=== PATIENT | female | born 1950 | race Caucasian/White ===

== ENCOUNTER 2018-07-25 11:31 | Inpatient (IN) | payer MEDICARE, OTHER ==
[~2018-07-25] VITALS: Ht 154.9 cm; Wt 59.9 kg
[2018-07-25] MEDS ORDERED: Sodium Chloride 550 ML IV SCH (11:45)
[2018-07-25] MEDS ORDERED: OMEPRAZOLE20 M3 ORAL (11:59)
[2018-07-25] MEDS ORDERED: CYMBALTA20 MG ORAL (11:59)
[2018-07-25] MEDS ORDERED: LISINOPRIL5 MG ORAL (11:59)
[2018-07-25] MEDS ORDERED: TRAMADOL HCL100 M2 ORAL (11:59)
[2018-07-25] MEDS ORDERED: METOPROLOL TART25 MG ORAL (11:59)
[2018-07-25] MEDS ORDERED: FAMOTIDINE20 MG ORAL (11:59)
[2018-07-25] MEDS ORDERED: GLUCOPHAGE1000 MG ORAL (11:59)
[2018-07-25] MEDS ORDERED: RIZATRIPTAN10 MG PO (11:59)
[2018-07-25] MEDS ORDERED: FENOFIBRATE145 M1 ORAL (11:59)
--- NOTE | 2018-07-25 12:00 | NUR ---
ED Nurse Note:pt. came with dr. Mcgovern referral for illeostomy revision surgery, pt. is A/Ox4 ambulatory, VSS, blood sent to labs
[2018-07-25 12:21] VITALS: BP 144/79
[2018-07-25 12:26] LABS: HEMATOCRIT 34.8 % (37.0-47.0); LYMPHOCYTES % (AUTO) 30.6 % (20.0-45.0); MEAN CORPUSCULAR VOLUME 82 FL (80-99); MONOCYTES % (AUTO) 10.2 % (1.0-10.0); NEUTROPHILS % (AUTO) 48.2 % (45.0-75.0); PLATELET COUNT 412 K/UL (150-450); RED BLOOD COUNT 4.26 M/UL (4.20-5.40); RED CELL DISTRIBUTION WIDTH 14.5 % (11.6-14.8); WHITE BLOOD COUNT 5.4 K/UL (4.8-10.8)
--- NOTE | 2018-07-25 12:30 | Emergency Room Report ---
History of Present Illness General Chief Complaint: Malfunctioning Gastric Tube Source: Patient, Significant Other Present Illness HPI Patient started having difficulty catheterizing her continent ileostomy on . There's been a slight amount of blood. She's used a smaller catheter. She was seen in a hospital where she lives in [place]. She's felt nauseated. She was referred here to have evaluation. She denies fevers or chills or pain. She's been taking tramadol for other pain that she has. Approximately 15 years ago she had a similar problem and had to have revision of the valve. Patient reports that the pain that she has in her body is from sciatica, nicked nerve that occurred during a hysterectomy and also from a recent right arm injury. No chest pain, cough, sore throat, shortness of breath, vomiting or dysuria. Allergies: Coded Allergies: KETOROLAC (Verified Allergy, Unknown, 07/25/18) MORPHINE (Verified Allergy, Unknown, 07/25/18) PENICILLINS (Verified Allergy, Unknown, 07/27/18) Patient History Past Medical History: see triage record Past Surgical History: other - ileostomy pouch, L hip replacement Social History: Denies: smoking, alcohol use, drug use Social History Narrative Reviewed Nursing Documentation: PMH: Agreed; PSxH: Agreed Nursing Documentation-PMH Hx Hypertension: Yes - MIGRAINE Hx Diabetes: Yes Hx Gastrointestinal Problems: Yes - GERD Review of Systems All Other Systems: negative except mentioned in HPI Physical Exam Vital Signs Date Time Temp Pulse Resp B/P (MAP) Pulse Ox O2 Delivery O2 Flow Rate FiO2 07/25/18 11:47 97.5 60 9 100 Room Air 07/25/18 12:21 144/79 Sp02 EP Interpretation: reviewed, normal General Appearance: well appearing, no apparent distress, GCS 15 Head: normocephalic Eyes: bilateral eye normal inspection, bilateral eye PERRL ENT: moist mucus membranes Neck: supple Respiratory: lungs clear, normal breath sounds Cardiovascular #1: regular rate, rhythm Cardiovascular #2: 2+ radial (R) Gastrointestinal: normal inspection, normal bowel sounds, non tender, no mass, non-distended, other - Incontinent ileostomy Genitourinary: no CVA tenderness Musculoskeletal: back normal, gait/station normal, normal range of motion Neurologic: alert, oriented x3, grossly normal Psychiatric: mood/affect normal Skin: normal inspection, warm/dry Medical Decision Making Diagnostic Impression: Primary Impression: Malfunction of efferent segment of continent urinary pouch Additional Impression: Renal insufficiency ER Course Patient presents with having difficulty cannulating her continent ileostomy. I differential includes stricture, malfunction of valve, obstruction amongst others. Evaluation will be with EKG, chest x-ray, abdominal film and labs. The patient will receive IV hydration. She declines pain medication and she took tramadol and hour ago. EKG without injury. CXR no infiltrates. Abd without obstruction. Labs with renal insufficiency. Slight anemia. Requested Ativan. Given IV. Admit Dr. Koby liu. Laboratory Tests Test 07/25/18 12:19 07/25/18 12:35 07/25/18 16:00 White Blood Count 5.4 K/UL (4.8-10.8) Red Blood Count 4.26 M/UL (4.20-5.40) Hemoglobin 11.0 G/DL (12.0-16.0) L Hematocrit 34.8 % (37.0-47.0) L Mean Corpuscular Volume 82 FL (80-99) Mean Corpuscular Hemoglobin 25.8 PG (27.0-31.0) L Mean Corpuscular Hemoglobin Concent 31.5 G/DL (32.0-36.0) L Red Cell Distribution Width 14.5 % (11.6-14.8) Platelet Count 412 K/UL (150-450) Mean Platelet Volume 6.4 FL (6.5-10.1) L Neutrophils (%) (Auto) 48.2 % (45.0-75.0) Lymphocytes (%) (Auto) 30.6 % (20.0-45.0) Monocytes (%) (Auto) 10.2 % (1.0-10.0) H Eosinophils (%) (Auto) 9.0 % (0.0-3.0) H Basophils (%) (Auto) 2.0 % (0.0-2.0) Sodium Level 133 MMOL/L (136-145) L Potassium Level 4.4 MMOL/L (3.5-5.1) Chloride Level 97 MMOL/L (98-107) L Carbon Dioxide Level 26 MMOL/L (21-32) Anion Gap 10 mmol/L (5-15) Blood Urea Nitrogen 19 mg/dL (7-18) H Creatinine 1.4 MG/DL (0.55-1.30) H Estimate Glomerular Filtration Rate 37.4 mL/min (>60) Glucose Level 100 MG/DL (74-106) Calcium Level 9.9 MG/DL (8.5-10.1) Total Bilirubin 0.3 MG/DL (0.2-1.0) Aspartate Amino Transferase (AST) 18 U/L (15-37) Alanine Aminotransferase (ALT) 15 U/L (12-78) Alkaline Phosphatase 62 U/L (46-116) Total Protein 7.8 G/DL (6.4-8.2) Albumin 3.8 G/DL (3.4-5.0) Globulin 4.0 g/dL Albumin/Globulin Ratio 0.9 (1.0-2.7) L Lipase 138 U/L (73-393) Prothrombin Time 10.7 SEC (9.30-11.50) Prothrombin Time INR 1.0 (0.9-1.1) PTT 25 SEC (23-33) Urine Color Pale yellow Urine Appearance Slightly cloudy Urine pH 6 (4.5-8.0) Urine Specific [place] 1.015 (1.005-1.035) Urine Protein Negative (NEGATIVE) Urine Glucose (UA) Negative (NEGATIVE) Urine Ketones Negative (NEGATIVE) Urine Blood Negative (NEGATIVE) Urine Nitrite Negative (NEGATIVE) Urine Bilirubin Negative (NEGATIVE) Urine Urobilinogen Normal MG/DL (0.0-1.0) Urine Leukocyte Esterase 3+ (NEGATIVE) H Urine RBC 0-2 /HPF (0 - 2) Urine WBC 20-30 /HPF (0 - 2) H Urine Squamous Epithelial Cells Many /LPF (NONE/OCC) H Urine Bacteria Moderate /HPF (NONE) H EKG Diagnostic Results Rate: bradycardiac Rhythm: NSR ST Segments: no acute changes Rhythm Strip Diag. Results EP Interpretation: yes Rhythm: no PVC's, no ectopy, other - Bradycardia rate 57 Chest X-Ray Diagnostic Results Chest X-Ray Diagnostic Results : Chest X-Ray Ordered: Yes # of Views/Limited/Complete: 1 View Indication: Other EP Interpretation: Yes Interpretation: no consolidation, no effusion, no pneumothorax Impression: No acute disease Electronically Signed by: Electronically signed by Damir Landa MD Other X-Ray Diagnostic Results Other X-Ray Diagnostic Results : X-Ray ordered: Abdomen # of Views/Limited Vs Complete: 2 View Indication: Other EP Interpretation: Yes Interpretation: nonspecific bowel gas, no sbo, other - Surgical clips, left hip replacement Impression: Other Electronically Signed by: Electronically signed by Damir Landa MD Last Vital Signs Date Time Temp Pulse Resp B/P (MAP) Pulse Ox O2 Delivery O2 Flow Rate FiO2 07/25/18 16:00 98.5 62 19 111/61 (78) 98 07/25/18 13:47 Room Air Status: improved Disposition: ADMITTED INPATIENT Condition: Serious Referrals: Nicanor Whalen MD (PCP) Damir Landa MD July 25, 2018 12:30
[2018-07-25 12:36] LABS: ANION GAP 10 mmol/L (5-15); BLOOD UREA NITROGEN 19 mg/dL (7-18); CALCIUM 9.9 MG/DL (8.5-10.1); CARBON DIOXIDE 26 MMOL/L (21-32); CHLORIDE 97 MMOL/L (98-107); CREATININE 1.4 MG/DL (0.55-1.30); POTASSIUM 4.4 MMOL/L (3.5-5.1); SODIUM 133 MMOL/L (136-145)
[2018-07-25 12:40] LABS: ALANINE AMINOTRANSFERASE 15 U/L (12-78); ALBUMIN 3.8 G/DL (3.4-5.0); ALBUMIN/GLOBULIN RATIO 0.9 (1.0-2.7); ALKALINE PHOSPHATASE 62 U/L (46-116); ASPARTATE AMINO TRANSFERASE 18 U/L (15-37); BILIRUBIN,TOTAL 0.3 MG/DL (0.2-1.0)
[2018-07-25] MEDS ORDERED: LORazepam Inj 2mg/ml 1ml IV ONE (13:00)
[2018-07-25 13:24] VITALS: BP 145/78
[2018-07-25 13:30] VITALS: BP 126/67
--- NOTE | 2018-07-25 13:30 | NUR ---
NURSE NOTES: ADMITTED A 66 YR OLD FEMALE WITH DX OF PATEL POUCH MALFUNCTION. AWAKE /ALERT. ADMISSION CARE DONE. SEE ADMISSION ASSESSMENT.
--- NOTE | 2018-07-25 13:30 | NUR ---
ED Nurse Note:called report to 3 east-given to Floor, pt. taken up
[2018-07-25] MEDS ORDERED: Dextrose 50% 25ml Syringe IV PRN (14:45)
--- NOTE | 2018-07-25 14:52 | General Progress Note ---
Progress Note Progress Note Admitted from Emergency Department presenting with severe difficulty intubating her Kock Pouch continent ileostomy to evacuate stool, with inability to eat and nausea. History of Ulcerative Colitis S/P proctocolectomy with Kock pouch in 1974, with revision and relocation of the stoma to [facility] in 1994. She does not have any incontinence of stool or gas through her stoma. 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 Also history of Sarcoidosis in remission. Labs reveal elevated BUN and Creatinine (19/1.4 Imp. Dehydration Functional small bowel partial obstruction due to inability to evacuate Kock pouch with difficulty inserting the drainage catheter diabetes HTN Perineal/pelvic chronic pain syndroma Plan: IV fluids and f/u labs in AM after hydrated diabetic clear liquid diet if tolerated, otherwise npo x po meds Insertion of 26 Parker into Kock pouch performed - keep to continuous gravity drainage with q3h flush 20cc NS Prepare for Kock Pouch endoscopy and possible surgical revision/ laparotomy vs. stoma revision based on endoscopy findings Nicanor Whalen MD July 25, 2018 14:52
[2018-07-25] MEDS ORDERED: D5 1/2NS w/KCl 20mEq 1,000 ML IV SCH (15:00)
[2018-07-25] MEDS: 1/2NS w/KCl 20mEq 1000ml 1,000 ML IV SCH (15:04)
[2018-07-25 16:00] VITALS: BP 111/61
--- NOTE | 2018-07-25 16:10 | NUR ---
NURSE NOTES: ASSISTED OOB, AMBULATED OUT IN THE [place], TOLERATED.
[2018-07-25] MEDS: Insulin NovoLOG Flexpen S/S (Mod) SUBQ SCH ×2 (16:30→21:00)
[2018-07-25 16:41] LABS: APPEARANCE,URINE SLIGHTLY CLOUDY; BILIRUBIN, URINE NEGATIVE (NEGATIVE); COLOR,URINE PALE YELLOW; GLUCOSE, URINE (UA) NEGATIVE (NEGATIVE); KETONES,URINE NEGATIVE (NEGATIVE); LEUKOCYTE ESTERASE ,URINE 3+ (NEGATIVE); NITRITE,URINE NEGATIVE (NEGATIVE); PH,URINE 6 (4.5-8.0); PROTEIN,URINE NEGATIVE (NEGATIVE); UROBILINOGEN,URINE NORMAL MG/DL (0.0-1.0)
--- NOTE | 2018-07-25 16:49 | NUR ---
CASE MANAGEMENT: REVIEW 68Y/F PRESENTED TO ED FROM HOME CC: MALFUNCTIONING PATEL POUCH MALFUNCTION SI: PATEL POUCH MALFUNCTION SURGICAL REVISION/LAPAROTOMY VS. STOMA REVISION SCHEDULED FOR 07/26 T 97.5 HR 59 RR 13 BP 144/79 SAT 100% ROOM AIR H/H 11.0/34.8 NA 133 BUN 19 CR 1.4 IS: ZOFRAN IV X1 NS IVF BOLUS X1 ATIVAN IV X1 PATIENT ADMITTED TO MED/SURG UNIT 07/25/2018 DCP: PATIENT IS FROM HOME
[2018-07-25] MEDS: traMADol 50mg tab ORAL SCH (17:40)
--- NOTE | 2018-07-25 19:00 | NUR ---
NURSE NOTES: QUIET IN BED. IN NO DISTRESS.
--- NOTE | 2018-07-25 19:16 | NUR ---
HAND-OFF: Report given to Alberto BARR RN.
--- NOTE | 2018-07-25 19:24 | NUR ---
NURSE NOTES: Report taken from LINO Jang. patient is awake and in bed, family at bedside. A&Ox4. No signs of distress on room air. No complaints of pain. She states that she is having a little bit of anxiety from being in the hospital, will follow up with medication per MD order. IV site c/d/i and patent running 1/2NS+20KCl at 100mls/hr. Pouch catheter c/d/i and draining light brown fluid, flush Q3h with NS. Skin is intact. Bed in lowest position, call light within reach.
[2018-07-25] MEDS: ALPRAZolam 0.5mg tab ORAL PRN (19:37)
[2018-07-25 20:00] VITALS: BP 133/73
[2018-07-25] MEDS: Metoprolol 25mg tab ORAL SCH (21:04)
[2018-07-25] MEDS: BELSOMRA 10 MG ORAL PRN (22:08)
[2018-07-26] VITALS (8 sets, daily range): BP systolic 86–147; BP diastolic 61–88
[2018-07-26] MEDS: 1/2NS w/KCl 20mEq 1000ml 1,000 ML IV SCH ×3 (01:00→21:00)
[2018-07-26] MEDS: ALPRAZolam 0.5mg tab ORAL PRN ×2 (02:36→15:20)
--- NOTE | 2018-07-26 02:38 | NUR ---
NURSE NOTES: Patients IV became infiltrated, removed. Attempted to insert new IV with no success.
--- NOTE | 2018-07-26 03:25 | NUR ---
NURSE NOTES: MD notified of no IV access. Will assess patient when in the hospital in the morning.
[2018-07-26] MEDS: Insulin NovoLOG Flexpen S/S (Mod) SUBQ SCH ×4 (06:27→21:00)
--- NOTE | 2018-07-26 06:50 | NUR ---
NURSE NOTES: Patient totals: UO: 1725cc Ileo: 150cc-80cc(flush)= 70cc total
--- NOTE | 2018-07-26 07:06 | NUR ---
HAND-OFF: Report given to LINO Jang. Patient is asleep in bed, VS stable.
[2018-07-26 07:29] LABS: BASOPHILS % (AUTO) 1.6 % (0.0-2.0); EOSINOPHILS % (AUTO) 9.6 % (0.0-3.0); HEMATOCRIT 30.7 % (37.0-47.0); HEMOGLOBIN 9.8 G/DL (12.0-16.0); MEAN CORPUSCULAR VOLUME 82 FL (80-99); MONOCYTES % (AUTO) 9.9 % (1.0-10.0); NEUTROPHILS % (AUTO) 45.9 % (45.0-75.0); PLATELET COUNT 335 K/UL (150-450); RED BLOOD COUNT 3.76 M/UL (4.20-5.40); RED CELL DISTRIBUTION WIDTH 14.1 % (11.6-14.8); WHITE BLOOD COUNT 4.7 K/UL (4.8-10.8)
--- NOTE | 2018-07-26 07:30 | NUR ---
NURSE NOTES: AWAKE/ALERT. C/O PAIN LEFT LEG SCALE 8/10. GIVEN TRAMADOL 50MG PO ORDERED. NO IV ACCESS AT THIS TIME. DR GAVIRIA AWARE. ON CLEAR LIQUIDS ,TOLERATED. IN NO DISTRESS.
[2018-07-26] MEDS: traMADol 50mg tab ORAL SCH ×4 (07:54→18:34)
[2018-07-26 07:57] LABS: ALANINE AMINOTRANSFERASE 13 U/L (12-78); ALBUMIN 3.2 G/DL (3.4-5.0); ALBUMIN/GLOBULIN RATIO 0.9 (1.0-2.7); ALKALINE PHOSPHATASE 50 U/L (46-116); ANION GAP 9 mmol/L (5-15); ASPARTATE AMINO TRANSFERASE 20 U/L (15-37); BILIRUBIN,TOTAL 0.3 MG/DL (0.2-1.0); BLOOD UREA NITROGEN 14 mg/dL (7-18); CARBON DIOXIDE 26 MMOL/L (21-32); CHLORIDE 100 MMOL/L (98-107); CREATININE 1.2 MG/DL (0.55-1.30); FERRITIN 22 NG/ML (8-388); POTASSIUM 3.9 MMOL/L (3.5-5.1); SODIUM 134 MMOL/L (136-145)
[2018-07-26] MEDS: Metoprolol 25mg tab ORAL SCH ×2 (08:40→21:12)
[2018-07-26] MEDS: Lisinopril 2.5mg tab ORAL SCH (08:40)
--- NOTE | 2018-07-26 08:40 | NUR ---
NURSE NOTES: BP 86/72,P 61. BP RECHECKED 135/72 P 60. IN NO APPARENT DISTRESS.
[2018-07-26] MEDS ORDERED: NS Irrig 1000ml ONE (08:47)
--- NOTE | 2018-07-26 10:00 | NUR ---
NURSE NOTES: OOB ,AMBULATED OUT IN THE [place] TOLERATED.
--- NOTE | 2018-07-26 10:19 | NUR ---
NURSE NOTES: ILEOSTOMY CATHETER CAME OUT WHILE AMBULATING. REPLACED WITH GUAMANIAN 26 CATHETER DRAINING BROWNISH OUTPUT. CATHETER SECURED WITH SILK TAPE, DRESSING CHANGED.
--- NOTE | 2018-07-26 11:44 | NUR ---
NURSE NOTES: ACCUCHECK 56. APPLE JUICE XE GIVEN.PT IN NO DUSTRESS. WILL RECHECK FSBS AFTER.
[2018-07-26 12:11] LABS: % IRON SATURATION 11 % (15-50); IRON 64 ug/dL (50-175); TOTAL IRON BINDING CAPACITY 563 ug/dL (250-450)
--- NOTE | 2018-07-26 12:14 | Diagnostic Imaging Report ---
Indication: Abdominal pain Comparison: None Single view of the abdomen obtained Findings: Bowel gas pattern is nonspecific. No mass, ectopic calcifications, or abnormal gas collections are identified. The right femoral head is sclerotic. There is a left total hip replacement noted. There is a calcification in the midpelvis which may be a bladder stone and measures 2.2 cm. Surgical sutures in the left hemipelvis noted. Impression: 2.2 cm stone within the pelvis. Query bladder calculus. 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 Post left hip replacement
--- NOTE | 2018-07-26 12:15 | Diagnostic Imaging Report ---
Indication: Dyspnea Comparison: None A single view chest radiograph was obtained. Findings: Cardiomediastinal appearance is within normal limits for age. The lungs are clear. Pulmonary vascularity is appropriate. The diaphragmatic contour is smooth and costophrenic angles are sharp. No pleural effusions are identified. The bones are unremarkable. Impression: No acute findings
--- NOTE | 2018-07-26 12:26 | NUR ---
NURSE NOTES: ACCUCHECK RECHECK 103. LUNCH TRAY GIVEN. WILL CONTINUE TO MONITR PT.
--- NOTE | 2018-07-26 13:52 | NUR ---
NURSE NOTES: AMBULATED OUT IN THE [place]. NO DISTRESS.
--- NOTE | 2018-07-26 15:21 | General Progress Note ---
Progress Note Progress Note AVSS Tolerating clear liquids. Indwelling Kock pouch catheter has come out but RN able to insert new 26Fr Parker. Abdomen soft Urine 1425 overnight Kock pouch ileo 110 WBC 4700 Hgb 9.8 after hydration (was 11 in ER) BUN and Cr now normal after hydration 14/1.2 albumin low 3.2 Iron 64 (50-175) Ferritin 22 (8-388) folic acid 10.7 (8-388) B12 level ok Imp. Dehydration, resolved Anemia due to iron deficiency Protein malnutrition Malfunctioning Kock Pouch with inability to intubate Plan: Needs dual lumen PIC for venous access and for TPN post-op, Venofer IV - to be inserted in AM Kock pouch endoscopy in AM Prepare for laparotomy Kock pouch revision surgery Nicanor Whaeln MD July 26, 2018 15:21
[2018-07-26] MEDS ORDERED: Lidocaine 1% Plain 30 ml INJ PRN (15:30)
[2018-07-26] MEDS ORDERED: Heparin1,000 units/500ml Premix(Conc:2 units/ml) IV PRN (15:30)
--- NOTE | 2018-07-26 18:53 | NUR ---
NURSE NOTES: QUIET IN BED. NO APPRENT DISTRESS.
--- NOTE | 2018-07-26 19:03 | NUR ---
HAND-OFF: Report given to Nikki ROGERS RN.
--- NOTE | 2018-07-26 19:16 | Pre-op HX & Phy Repo 2 SIG ---
DATE OF ADMISSION: 07/25/2018 HISTORY OF PRESENT ILLNESS: The patient is a 68-year-old female in overall stable health, who presents to the emergency room with inability to catheterize her Kock pouch continent ileostomy to evacuate stool and gas. The patient has a past history of ulcerative colitis that developed in 1969. In 1974, she underwent proctocolectomy with creation of a Kock pouch continent ileostomy. She required a revision with relocation of the stoma to the left lower quadrant in 1994 because of difficulty with intubation. Her usual routine is to catheterize her pouch 3 to 4 times per day with a 30-Algerian Medena catheter. She states that the difficulty is several inches into the stoma when the catheter is nearly all the way into her pouch. She presented to the emergency room and a small caliber catheter could be inserted and she was admitted to the floor. The patient has complaints of some nausea, but has not had vomiting. She feels slightly dehydrated during her attempts to catheterize her pouch. She had some bleeding. PAST MEDICAL HISTORY: MEDICATIONS: Lisinopril and metoprolol for hypertension, tramadol for one year history of spine and left leg pain, duloxetine, Dexilant for reflux, TriCor, metformin daily, insulin as needed based on her blood sugars, and Maxalt p.r.n. migraine headache. ALLERGIES TO MEDICATIONS: Penicillin causes rash. Morphine causes side effects. Toradol, she cannot take because she states she has chronic renal insufficiency, although she urinates normally. OPERATIONS: In addition to the above, the patient underwent total abdominal hysterectomy and bilateral salpingo-oophorectomy in May 2015. The operative report indicated severe adhesions and a question of left side retroperitoneal fibrosis. Ever since the hysterectomy, the patient has developed perineal and pelvic and vaginal and phantom rectum pain, which has persisted and she states it is constant. She has received epidural blocks and Botox injections. In April 2018, the patient underwent open reduction and internal fixation of a left elbow fracture following a fall. REVIEW OF SYSTEMS: Sarcoidosis of lungs in remission, diabetes, hypertension, chronic perineal/pelvic pain syndrome. PHYSICAL EXAMINATION: GENERAL: The patient is well developed and well nourished, 5 feet 1 inches, approximately 130 pounds. She has mild nausea. VITAL SIGNS: Within normal limits. HEENT: Within normal limits. LUNGS: Clear. HEART: Regular rhythm. BREASTS: Without masses. ABDOMEN: Soft and not distended. There are multiple scars including a long midline scar and a left paramedian scar, and a transverse scar in the right lower quadrant from prior Kock pouch stoma location. There is no evidence of abdominal wall hernia. The stoma of the Kock pouch is small and low in the left lower quadrant. PELVIC: Status post hysterectomy. RECTAL: Status post proctectomy. EXTREMITIES: Without edema. Pulses 2+ femoral to pedal bilaterally. NEUROLOGIC: Physiologic. LABORATORY AND DIAGNOSTIC DATA: Additional information, the patient presents with mild dehydration with BUN elevated 19 and creatinine elevated 1.4. Chest x-ray is negative. Abdominal x-ray reveals mildly dilated small bowel loops, nonspecific bowel gas pattern. White count 5400 and hemoglobin 11. A 26-Algerian Parker catheter was able to be inserted through Kock pouch stoma into the pouch and connected to continuous gravity drainage to decompress her intestine. IMPRESSION: 1. Malfunctioning Kock pouch continent ileostomy with inability to catheterize to evacuate stool. 2. History of ulcerative colitis. 3. STATUS POST MULTIPLE ABDOMINAL OPERATIONS: 3.1. Proctocolectomy and Kock pouch in 1974. 3.2. Revision of Kock pouch with relocation of stoma to the left lower quadrant in 1994. 3.3. Total abdominal hysterectomy and bilateral salpingo-oophorectomy in May,. 4. Hypertension. 5. Diabetes. 6. Chronic pain syndrome of perineum, pelvis, and vaginal, phantom rectum. 7. Sarcoidosis of lungs in remission. PLAN: The patient will be admitted with continuous drainage of her Kock pouch and intravenous hydration. Her fluid electrolyte balance will be monitored carefully. Once she has been completely stabilize, she will need to undergo Kock pouch endoscopy followed by preparation for surgical revision as indicated. Nicanor Whalen M.D. DR: ZAIN JOB#: [id number] CC: RAYMOND
--- NOTE | 2018-07-26 19:30 | NUR ---
NURSE NOTES: Received report from LINO Jang and rounds done. Received pt laying in bed, AOX4, denies any pain, no distress noted. Pt has no IV access, MD aware. Ileo to gravity with good output. Safety measures maintained. Will continue to monitor.
[2018-07-26] MEDS: Dyna-Hex 2% Top Sol 2oz TOPIC SCH (20:00)
--- NOTE | 2018-07-26 21:00 | NUR ---
NURSE NOTES: ACCUCHECK 50. APPLE JUICE GIVEN.PT IN NO DISTRESS. WILL RECHECK BLOOD SUGAR AFTER.
--- NOTE | 2018-07-26 21:45 | NUR ---
NURSE NOTES: ACCUCHECK RECHECK 103. PT REFUSED SNACKS. NO DISTRESS NOTED. WILL CONTINUE TO MONITOR.
[2018-07-26] MEDS: BELSOMRA 10 MG ORAL PRN (21:52)
[2018-07-27 00:22] VITALS: BP 130/65
[2018-07-27] MEDS: ALPRAZolam 0.5mg tab ORAL PRN ×2 (04:34→09:47)
[2018-07-27 06:00] VITALS: BP 122/72
[2018-07-27] MEDS: Insulin NovoLOG Flexpen S/S (Mod) SUBQ SCH ×4 (06:24→20:48)
[2018-07-27] MEDS: 1/2NS w/KCl 20mEq 1000ml 1,000 ML IV SCH (07:00)
--- NOTE | 2018-07-27 07:14 | NUR ---
HAND-OFF: Report given to LINO Klein. Pt in stable condition.
--- NOTE | 2018-07-27 07:15 | NUR ---
NURSE NOTES: Received report from Christian Mora RN. Rounding done with outgoing nurse. Patient a/o x4 lying on the bed. No respiratory discomfort noted and denies pain at this time. is at bedside. Ileostomy on left site is patent and greenish color noted. Bed in lowest position, call light within reach. Will continue to monitor.
[2018-07-27 08:00] VITALS: BP 135/76
[2018-07-27] MEDS ORDERED: Lidocaine 1% Plain 30 ml INJ SCH (08:30)
[2018-07-27] MEDS ORDERED: Heparin1,000 units/500ml Premix(Conc:2 units/ml) IV SCH (08:30)
[2018-07-27] MEDS: Metoprolol 25mg tab ORAL SCH ×2 (08:37→20:50)
[2018-07-27] MEDS: traMADol 50mg tab ORAL SCH ×3 (08:38→17:21)
[2018-07-27] MEDS: Lisinopril 2.5mg tab ORAL SCH (08:38)
--- NOTE | 2018-07-27 08:50 | General Progress Note ---
Progress Note Progress Note AVSS Tolerated 1300cc po clear liquids. Had some nausea relieved with Zofran ODT Abdomen soft, non-distended, non-tender Urine 2400 Kock pouch ileo 890 Labs pending U/A ? UTI but C&S neg so far Imp. Malfunctioning Kock Pouch Continent Ileostomy Dehydration, resolved Malnutrition Iron deficiency anemia Plan: PICC line placement today for venous access Kock Pouch endoscopy today - likely surgery tomorrow Nicanor Whalen MD July 27, 2018 08:50
[2018-07-27 08:59] LABS: BASOPHILS % (AUTO) 0.8 % (0.0-2.0); LYMPHOCYTES % (AUTO) 23.8 % (20.0-45.0); MEAN CORPUSCULAR VOLUME 81 FL (80-99); MONOCYTES % (AUTO) 11.5 % (1.0-10.0); PLATELET COUNT 308 K/UL (150-450); RED BLOOD COUNT 3.84 M/UL (4.20-5.40); RED CELL DISTRIBUTION WIDTH 14.1 % (11.6-14.8); WHITE BLOOD COUNT 4.9 K/UL (4.8-10.8)
--- NOTE | 2018-07-27 09:04 | Pre-Procedure Note/Attestation ---
Pre-Procedure Note/Attestation Complete Prior to Procedure Planned Procedure: not applicable Procedure Narrative: Kock Pouch endoscopy Indications for Procedure Pre-Operative Diagnosis: malfunctioning Kock Pouch continent ileostomy Attestation I attest that I discussed the nature of the procedure; its benefits; risks and complications; and alternatives (and the risks and benefits of such alternatives ), prior to the procedure, with the patient (or the patient's legal patient care representative). I attest that, if there was a reasonable possibility of needing a blood transfusion, the patient (or the patient's legal patient care representative) was given the [facility] standardized written summary, pursuant to the Andrade Bryce Blood Safety Act ([place] Health and Safety Code # 1645, as amended). I attest that I re-evaluated the patient just prior to the surgery and that there has been no change in the patient's H&P, except as documented below: none Nicanor Whalen MD July 27, 2018 09:04
[2018-07-27 09:14] LABS: ANION GAP 8 mmol/L (5-15); BLOOD UREA NITROGEN 11 mg/dL (7-18); CALCIUM 9.4 MG/DL (8.5-10.1); CARBON DIOXIDE 26 MMOL/L (21-32); CHLORIDE 96 MMOL/L (98-107); CREATININE 1.1 MG/DL (0.55-1.30); POTASSIUM 4.2 MMOL/L (3.5-5.1); SODIUM 130 MMOL/L (136-145)
--- NOTE | 2018-07-27 09:50 | NUR ---
NURSE NOTES: Patient off the unit for insertion PICC line. Pt is stable.
--- NOTE | 2018-07-27 09:50 | NUR ---
NURSE NOTES: Patient off the unit for kock pouch endoscopy. Patient is stable. Addendum: 07/27/18 at 1134 by Luciana Romo RN DISCARD PLEASE WRONG NOTE.
--- NOTE | 2018-07-27 11:15 | NUR ---
NURSE NOTES: Pt came to unit. TOMI PICC line was inserted. Pt. in stable condition.
[2018-07-27 12:00] VITALS: BP 117/68
--- NOTE | 2018-07-27 12:07 | Diagnostic Imaging Report ---
Indication: terminal gauger supervisor venous access Findings: After the indications, procedure, risks, complications, and alternatives of the procedure were explained, written informed consent was obtained. The right upper extremity was prepped with alcohol. All elements of maximal sterile barrier technique were followed including usage of a cap, mask, sterile gown, sterile gloves, hand hygiene and a large sterile sheet. Sonographic evaluation of the upper extremity was performed demonstrating a patent and compressible basilic vein. Access was obtained under real-time ultrasound guidance (with utilization of sterile gel and sterile probe cover) and digital image was saved and archived. An .018 wire was introduced. Needle exchanged for a 5 [place] peel-away sheath. Measurements were obtained. A 5 [place] dual-lumen Power PICC line catheter was cut to 30 cm and introduced over the wire. Peel-away sheath and wire were removed.Catheter was secured to the skin using 2-0 Prolene suture. Both ports aspirate and flush easily. A single fluoroscopic image shows the distal tip in the left subclavian vein. Attempts at passing the catheter or wire beyond this were unsuccessful. Total fluoroscopic time 38 seconds. Impression: Successful placement of an upper extremity PICC line catheter. The line is short of the SVC with the tip residing in the left subclavian vein.
[2018-07-27] MEDS: NS w/KCl 20mEq 1000ml 1,000 ML IV SCH ×2 (12:14→23:52)
--- NOTE | 2018-07-27 12:57 | Brief Operative Note ---
Immediate Post Operative Note Operative Note Pre-op Diagnosis: malfunctioning Kock Pouch continent ileostomy Procedure: Kock pouch endoscopy Post-op Diagnosis: redundant and angulated access segment Post-op Diagnosis: same as pre-op Findings: consistent w/pre-op dx studies Surgeon: [email or web address] Anesthesia: other - none Specimen: none Complications: none Condition: stable Fluids: none Estimated Blood Loss: none Drains: other - 26 kennedy to Kock Pouch Implant(s) used?: No Nicanor Whalen MD July 27, 2018 12:57
[2018-07-27] MEDS: Neomycin Sulfate 500mg Tab ORAL SCH ×3 (13:26→20:43)
--- NOTE | 2018-07-27 14:10 | NUR ---
NURSE NOTES: Patient ambulates hallway with RN assistance. Patient is stable condition.
[2018-07-27 16:00] VITALS: BP 113/62
--- NOTE | 2018-07-27 16:45 | Procedure Note ---
DATE OF PROCEDURE: 07/27/2018 ENDOSCOPIST: Nicanor Whalen M.D. ANESTHESIA: None. SEDATION: None. PRE-ENDOSCOPY DIAGNOSIS: Malfunctioning Kock pouch continent ileostomy with inability to intubate. 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 ENDOSCOPY PERFORMED: Kock pouch endoscopy. FINDINGS: A redundant and angulated access segment measuring 10 to 11 cm from the stoma orifice to the tip of the valve. Pouch otherwise appeared normal. DESCRIPTION OF PROCEDURE: The patient was taken to the GI laboratory, positioned supine without any sedation or anesthesia given or required. Using a GIF-P140 endoscope, the stoma in the left lower quadrant was entered. There were two angulations and redundancy of the access segment. Once the pouch was entered, it was quite distensible. The pouch mucosa is normal. The afferent bowel anastomosis was open. Retroflexed views could not completely visualize the valve, but much of it was seen to be well formed circumferentially, but there was too much angulation and torquing. Withdrawal views confirmed the above findings. After removing the endoscope ,I inserted a 26-Polish Parker catheter into the pouch instead of the more normal 28-Polish Parker catheter. The pouch was irrigated. The catheter was secured to the skin with tape dressing and connected to a gravity drainage bag. The patient will be prepared for laparotomy, revision of Kock pouch and stoma in the morning. She tolerated the endoscopy well. Nicanor Whalen M.D. DR: Loraine JOB#: [id number] CC: RAYMOND
--- NOTE | 2018-07-27 19:20 | NUR ---
NURSE NOTES: Report taken from LINO Klein. patient is asleep in bed, is easily arousable by name, family at bedside. A&Ox4. No signs of distress on room air. Having some soreness at the PICC line insertion site, also having intermittent radiating pain through back and right leg 07/17. Ileo c/d/i and patent, continuously draining light brown fluid. PICC line c/d/i and patent, 1 port running 1/2 NS + 20KCl at 100mls/hr. Surgery schedules for tomorrow, blood consent and surgery consent signed by patient. No skin issues present. Bed in lowest position, call light within reach. Addendum: 07/28/18 at 0014 by Henok Linton RN Fluids running at 75mls/hr
--- NOTE | 2018-07-27 19:37 | Cardiology Report ---
APPROVED REPORT EKG Measurement Heart [id number] AR 180P24 [id number] Sinus bradycardia Otherwise normal ECG
--- NOTE | 2018-07-27 19:55 | NUR ---
HAND-OFF: Report given to LINO Whiting.
[2018-07-27 20:00] VITALS: BP 131/71
[2018-07-27] MEDS: Dyna-Hex 2% Top Sol 2oz TOPIC SCH (20:42)
[2018-07-27] MEDS: Iron Sucrose 100 MG in NS 55 ML IV SCH (20:47)
[2018-07-27] MEDS ORDERED: Desitin Rash Paste TOPIC SCH (21:00)
[2018-07-27] MEDS: BELSOMRA 10 MG ORAL PRN (22:25)
[2018-07-28] VITALS (18 sets, daily range): BP systolic 105–143; BP diastolic 45–75
[2018-07-28 05:03] LABS: BASOPHILS % (AUTO) 1.3 % (0.0-2.0); EOSINOPHILS % (AUTO) 8.2 % (0.0-3.0); HEMATOCRIT 28.3 % (37.0-47.0); HEMOGLOBIN 9.2 G/DL (12.0-16.0); LYMPHOCYTES % (AUTO) 26.8 % (20.0-45.0); MEAN CORPUSCULAR VOLUME 81 FL (80-99); NEUTROPHILS % (AUTO) 50.8 % (45.0-75.0); PLATELET COUNT 282 K/UL (150-450); RED BLOOD COUNT 3.51 M/UL (4.20-5.40); WHITE BLOOD COUNT 3.9 K/UL (4.8-10.8)
[2018-07-28 05:17] LABS: ALANINE AMINOTRANSFERASE 13 U/L (12-78); ALBUMIN/GLOBULIN RATIO 0.9 (1.0-2.7); ALKALINE PHOSPHATASE 51 U/L (46-116); ANION GAP 7 mmol/L (5-15); ASPARTATE AMINO TRANSFERASE 17 U/L (15-37); BILIRUBIN,TOTAL 0.2 MG/DL (0.2-1.0); BLOOD UREA NITROGEN 11 mg/dL (7-18); CALCIUM 8.8 MG/DL (8.5-10.1); CARBON DIOXIDE 27 MMOL/L (21-32); CHLORIDE 101 MMOL/L (98-107); CREATININE 1.1 MG/DL (0.55-1.30); SODIUM 135 MMOL/L (136-145)
[2018-07-28] MEDS: Insulin NovoLOG Flexpen S/S (Mod) SUBQ SCH ×4 (06:09→21:22)
--- NOTE | 2018-07-28 06:40 | NUR ---
NURSE NOTES: Patient total outputs for PM shift UO: 1150cc Ileo: 350cc-80cc(flush)= 270cc
--- NOTE | 2018-07-28 07:18 | NUR ---
HAND-OFF: Report given to LINO Jang. Patient asleep and in bed, VS stable. Consent for surgery signed by patient.
--- NOTE | 2018-07-28 07:54 | NUR ---
NURSE NOTES: ASLEEP. IN NO APPARENT DISTRESS. NPO MAINTAINED FOR SURGERY.
[2018-07-28] MEDS: traMADol 50mg tab ORAL SCH ×2 (08:43→13:00)
[2018-07-28] MEDS: Lisinopril 2.5mg tab ORAL SCH (08:43)
[2018-07-28] MEDS: Metoprolol 25mg tab ORAL SCH ×2 (08:44→21:23)
[2018-07-28] MEDS ORDERED: Heparin 5000 units/ml inj SUBQ SCH ×2 (09:39→12:00)
[2018-07-28] MEDS: ALPRAZolam 0.5mg tab ORAL PRN (10:57)
--- NOTE | 2018-07-28 11:02 | Anethesia Preoperative Eval ---
Anesthesia Pre-op PMH/ROS General Date of Evaluation: July 28, 2018 Anesthesiologist: Parvez ASA Score: ASA 2 Mallampati Score Class I : Soft palate, uvula, fauces, pillars visible Class II: Soft palate, uvula, fauces visible Class III: Soft palate, base of uvula visible Class IV: Only hard plate visible Mallampati Classification: Class II Surgeon: Koby Diagnosis: Malfunctioning kock pouch Surgical Procedure: Revision of kock pouch Anesthesia History: none Family History: no anesthesia problems Allergies: Coded Allergies: KETOROLAC (Verified Allergy, Unknown, 07/25/18) MORPHINE (Verified Allergy, Unknown, 07/25/18) PENICILLINS (Verified Allergy, Unknown, 07/27/18) Patient NPO?: Yes NPO Date: July 27, 2018 NPO Time: 0000 Past Medical History Cardiovascular: Reports: HTN, other - HLD; Denies: CAD, SC, valve dz, arrhythmia Pulmonary: Denies: asthma, COPD, ZEV, other Gastrointestinal/Genitourinary: Reports: GERD, other - UC; Denies: CRI, ESRD Neurologic/Psychiatric: Denies: dementia, CVA, depression/anxiety, TIA, other Endocrine: Reports: DM; Denies: hypothyroidism, steroids, other HEENT: Denies: cataract (L), cataract (R), glaucoma, [place] (L), [place]ET (R), other Hematology/Immune: Reports: anemia - chronic; Denies: DVT, bleeding disorder, other Musculoskeletal/Integumentary: Reports: OA; Denies: RA, DJD, DDD, edema, other PSxH Narrative: multiple ex-laps, JUANJO, left hip sx Anesthesia Pre-op Phys. Exam Physician Exam Last Vital Signs Date Time Temp Pulse Resp B/P (MAP) Pulse Ox O2 Delivery O2 Flow Rate FiO2 07/28/18 09:14 Room Air 07/28/18 09:13 98.5 07/28/18 08:44 55 127/57 07/28/18 08:02 15 94 Constitutional: NAD Cardiovascular: RRR Respiratory: CTA Airway Exam Mallampati Score: Class II MO: full ROM: full Anesthesia Pre-op A/P Labs Hematology Test 07/28/18 04:50 White Blood Count 3.9 K/UL (4.8-10.8) L Red Blood Count 3.51 M/UL (4.20-5.40) L Hemoglobin 9.2 G/DL (12.0-16.0) L Hematocrit 28.3 % (37.0-47.0) L Mean Corpuscular Volume 81 FL (80-99) Mean Corpuscular Hemoglobin 26.2 PG (27.0-31.0) L Mean Corpuscular Hemoglobin Concent 32.5 G/DL (32.0-36.0) Red Cell Distribution Width 14.0 % (11.6-14.8) Platelet Count 282 K/UL (150-450) Mean Platelet Volume 6.3 FL (6.5-10.1) L Neutrophils (%) (Auto) 50.8 % (45.0-75.0) Lymphocytes (%) (Auto) 26.8 % (20.0-45.0) Monocytes (%) (Auto) 13.0 % (1.0-10.0) H Eosinophils (%) (Auto) 8.2 % (0.0-3.0) H Basophils (%) (Auto) 1.3 % (0.0-2.0) Chemistry Test 07/28/18 04:50 Sodium Level 135 MMOL/L (136-145) L Potassium Level 4.0 MMOL/L (3.5-5.1) Chloride Level 101 MMOL/L (98-107) Carbon Dioxide Level 27 MMOL/L (21-32) Anion Gap 7 mmol/L (5-15) Blood Urea Nitrogen 11 mg/dL (7-18) Creatinine 1.1 MG/DL (0.55-1.30) Estimat Glomerular Filtration Rate 49.4 mL/min (>60) Glucose Level 88 MG/DL (74-106) Calcium Level 8.8 MG/DL (8.5-10.1) Total Bilirubin 0.2 MG/DL (0.2-1.0) Aspartate Amino Transf (AST/SGOT) 17 U/L (15-37) Alanine Aminotransferase (ALT/SGPT) 13 U/L (12-78) Alkaline Phosphatase 51 U/L (46-116) Total Protein 6.3 G/DL (6.4-8.2) L Albumin 3.0 G/DL (3.4-5.0) L Globulin 3.3 g/dL Albumin/Globulin Ratio 0.9 (1.0-2.7) L Studies Pre-op Studies: EKG - SB, CXR - WNL Risk Assessment & Plan Assessment: ASA II Plan: GA Status Change Before Surgery: No Pre-Antibiotics Drug: Moraima Abraham MD July 28, 2018 11:01
[2018-07-28] MEDS ORDERED: Midazolam 2mg/2ml Inj ONE (11:07)
[2018-07-28] MEDS ORDERED: Propofol 200mg/20ml IV ONE (11:07)
[2018-07-28] MEDS ORDERED: Dexamethasone 4mg/ml vial ONE (11:07)
[2018-07-28] MEDS ORDERED: Lidocaine 1% MPF 10mg/ml 5ml ONE (11:07)
[2018-07-28] MEDS ORDERED: Metoclopramide 10mg/2ml Inj ONE (11:07)
[2018-07-28] MEDS ORDERED: fentaNYL 100 mcg/2 mL IV ONE (11:07)
[2018-07-28] MEDS ORDERED: NeoSporin Gu Irrig 1ml Amp IRRIG ONE ×2 (11:24→11:38)
[2018-07-28] MEDS ORDERED: Bacitracin 50000 Units Vial ONE ×2 (11:24→11:31)
--- NOTE | 2018-07-28 11:24 | General Progress Note ---
Progress Note Progress Note AVSS Prepared for surgery with SQ heparin and IV Levaquin + Flagyl Abdomen soft WBC down 3900 Hgb down 9.2 BUN 11 Cr 1.1 Albumin 3.0 Imp. stable for surgery Full discussion has been had with the patient and her regarding her condition, the planned surgery, indications, alternatives, options and risks ( bleeding, infection, injury to adjacent structures or organs, DVT despite prophylaxis, scarring, adhesions, need for subsequent additional procedures on the Kock pouch, remote possibility of conventional ileostomy, etc). All questions have been answered. 2 units PRBC available for surgery Will need TPN post-op although PIC line is in subclavian vein and not SVC. Nicanor Whalen MD July 28, 2018 11:24
--- NOTE | 2018-07-28 11:25 | Pre-Procedure Note/Attestation ---
Pre-Procedure Note/Attestation Complete Prior to Procedure Planned Procedure: not applicable Procedure Narrative: Laparotomy and revision of Kock Pouch and stoma, possible gastrostomy Indications for Procedure Pre-Operative Diagnosis: malfunctioning Kock Pouch continent ileostomy Attestation I attest that I discussed the nature of the procedure; its benefits; risks and complications; and alternatives (and the risks and benefits of such alternatives ), prior to the procedure, with the patient (or the patient's legal representative phlebotomy services). I attest that, if there was a reasonable possibility of needing a blood transfusion, the patient (or the patient's legal representative phlebotomy services) was given the [facility] standardized written summary, pursuant to the [place] Blood Safety Act ([place] Health and Safety Code # 1645, as amended). I attest that I re-evaluated the patient just prior to the surgery and that there has been no change in the patient's H&P, except as documented below: none Nicanor Whalen MD July 28, 2018 11:25
--- NOTE | 2018-07-28 11:44 | NUR ---
NURSE NOTES: npo maintained for surgery. to or [facility] bed.
[2018-07-28] MEDS ORDERED: LR 1000ml 1,000 ML IVLG SCH (11:45)
[2018-07-28] MEDS ORDERED: LORazepam Inj 2mg/ml 1ml IV PRN (11:45)
[2018-07-28] MEDS ORDERED: Hydromorphone 0.5mg/0.5ml inj IVP PRN (11:45)
[2018-07-28] MEDS ORDERED: DiphenhydrAMINE 50mg/ml Inj IVP PRN ×2 (11:45→14:30)
[2018-07-28] MEDS ORDERED: Midazolam 2mg/2ml Inj IVP PRN (11:45)
[2018-07-28] MEDS ORDERED: fentaNYL 100 mcg/2 mL IV PRN (11:45)
[2018-07-28] MEDS ORDERED: NS Irrig 2000ml IRRIG ONE (11:59)
[2018-07-28] MEDS ORDERED: Sterile Water Irrig 1000ml IRRIG ONE (12:00)
[2018-07-28] MEDS ORDERED: NS Irrig 1000ml ONE (12:00)
[2018-07-28] MEDS ORDERED: LR 1000ml ONE (12:00)
[2018-07-28] MEDS: NS w/KCl 20mEq 1000ml 1,000 ML IV SCH ×2 (12:33→15:22)
--- NOTE | 2018-07-28 13:44 | NUR ---
RD ASSESSMENT & RECOMMENDATIONS SEE CARE ACTIVITY FOR COMPLETE ASSESSMENT DAILY ESTIMATED NEEDS: Needs based on Pending surgery 51kg adj 25-35 kcals/kg 9351-9694 total kcals 1-2 g protein/kg 51-102 g total protein 25-30 mL/kg 1052-9248 total fluid mLs NUTRITION DIAGNOSIS: Altered GI function r/t malfunctioning ileostomy as evidenced by pt w/ history of ulcerative colitis, s/p kock pouch, NPO w/ pending surgical revision. CURRENT DIET:NPO PO DIET RECOMMENDATIONS: PER MD PARENTERAL NUTRITION RECOMMENDATIONS: D/AA Rate: 60 IL Rate: 8 Total Rate: 68 Volume: 1632 % Dextrose: 16 % AA: 5 Energy (kcals/kg): 1455 Protein (g/kg protein): 72 Nonprotein KCALS: 1167 GIR (mg CHO/kg/min): 3.1 % Fat KCALS: 26 NPC: N Ratio: 102:1 TPN Comment: - TP recs as above, D16% + AA 5.0% @60ml w/ IL20% @8ml/hr: all 3:1, @68ml/hr. - Start @18ml/hr for 6 hrs, advance 10ml/hr q4-6 hrs to goal. - TPN at goal provides 1455kcal (28.5kcal/adj kg) and 72g pro (1.4g/adj kg), meets 100% est needs - GIR <5, IL <30%, NPC >100:1. ----- ADDITIONAL RECOMMENDATIONS: 1) TPN recs as above 2) CHECK DAILY: BG, LYTES, LFT'S on TPN 3) Weekly weights 4) Diet per
[2018-07-28] MEDS ORDERED: Glycopyrrolate 0.2mg/ml 1ml Vial ONE (13:49)
[2018-07-28] MEDS ORDERED: Neostigmine 1mg/ml 10ml Inj ONE (13:49)
--- NOTE | 2018-07-28 14:07 | Immediate Post-Op Evaluation ---
Immediate Post-Op Evalulation Immediate Post-Op Evalulation Procedure: Laparotomy, revision kock pouch Date of Evaluation: July 28, 2018 Time of Evaluation: 14:09 IV Fluids: 1.5L Blood Products: 0 Estimated Blood Loss: 50 Urinary Output: 200 Blood Pressure Systolic: 133 Blood Pressure Diastolic: 65 Pulse Rate: 67 Respiratory Rate: 16 O2 Sat by Pulse Oximetry: 100 Temperature (Fahrenheit): 97.6 Pain Score (1-10): 0 Nausea: No Vomiting: No Complications 0 Patient Status: awake, reacts, patent, none Hydration Status: adequate Drug: Flagyl 500mg Given Within 1 Hr of Incision: Yes Moraima Vickers MD July 28, 2018 14:07
[2018-07-28] MEDS ORDERED: LORazepam 1mg tab SL PRN (14:15)
[2018-07-28] MEDS ORDERED: Rate Change PCA 1 Each MISC PRN (14:15)
[2018-07-28] MEDS ORDERED: PCA Education Pamphlet MISC ONE (14:15)
[2018-07-28] MEDS ORDERED: PCA HYDROmorphone 30mg/30ml Syr IV PRN (14:15)
--- NOTE | 2018-07-28 14:20 | Brief Operative Note ---
Immediate Post Operative Note Operative Note Pre-op Diagnosis: malfunctioning Kock Pouch continent ileostomy Procedure: Laparotomy and revision of Kock pouch access segment angulation Post-op Diagnosis: malfunctioning kock pouch with difficulty with intubation Post-op Diagnosis: same as pre-op Findings: consistent w/pre-op dx studies Surgeon: zaynab Weapons Engineer: jose juan Anesthesiologist: mikhail Anesthesia: general Specimen: none Complications: none Condition: stable Fluids: see anesthesia record Estimated Blood Loss: volume - 50cc Drains: other - 28 Parker to Kock Pouch Implant(s) used?: No Nicanor Whalen MD July 28, 2018 14:20
--- NOTE | 2018-07-28 15:20 | NUR ---
NURSE NOTES: RECD FROM PACU SP LAPAROTOMY,REVISION OF PATEL POUCH. DROWSY BUT AROUSABLE. C/S TAKEN . APIN SCALE 9/10. WITH DIRECTOR OF RESEARCH AND DEVELOPMENT DILAUDID. INSTRUCTED TO PUSH PAIN BUTTON NEEDED FOR PAIN. IV INFUSING ON TOMI PICC LINE. ABDOMINAL DRESSING DRY AND INTACT. ILEOSTOMY TO DRAINAGE BAG DRAINING LIGHT GREEN OUTPUT. IN NO ACUTE DISTRESS.WILL CONTINUE TO MONITOR PT.
--- NOTE | 2018-07-28 16:29 | General Progress Note ---
Progress Note Progress Note sleepy but arousable, comfortable with Dilaudid DIRECTOR OF PROVIDER RELATIONS VSS abdomen soft, dressing dry. Urine clear Kock pouch catheter with effluent in drainage bag Imp. Stable Plan: NPO x po meds and ice chips Will defer TPN since PIC line tip is in subclavian vein not SVC (could not be manipulated in per Radiology) continue Nicanor Cohen MD July 28, 2018 16:29
--- NOTE | 2018-07-28 16:33 | NUR ---
CASE MANAGEMENT:REVIEW 07/28/18 SI: POD #1 S/P REVISION OF KOCK POUCH 98.1 69 15 112/62 100% ON 3L/NC H/H-9.2/28.3 IS: CURRICULUM DEVELOPMENT SPECIALIST DILAUDID IV PROTONIX QD IVF+KCL @100/HR IV VENOFER QHS : MED/SURG STATUS 3 EAST
--- NOTE | 2018-07-28 18:00 | Operative Note - Dictated ---
DATE OF OPERATION: 07/28/2018 SURGEON: Nicanor Whalen M.D. COTTON FACTOR SURGEON: Jam Pittman M.D. ANESTHESIOLOGIST: Dr. Moraima Hunt. TYPE OF ANESTHESIA: General endotracheal. PREOPERATIVE DIAGNOSES: 1. Malfunctioning Kock pouch continent ileostomy. 2. History of ulcerative colitis. 3. Status post multiple abdominal operations. 3.1. Proctocolectomy and Kock pouch in 1974. 3.2. Revision of Kock pouch with relocation of stoma to the left lower quadrant in 1994. 3.3. Total abdominal hysterectomy and bilateral salpingo-oophorectomy 2015 POSTOPERATIVE DIAGNOSES: 1. Malfunctioning Kock pouch continent ileostomy. 2. History of ulcerative colitis. 3. Status post multiple abdominal operations. 3.1. Proctocolectomy and Kock pouch in 1974. 3.2. Revision of Kock pouch with relocation of stoma to the left lower quadrant in 1994. 3.3. Total abdominal hysterectomy and bilateral salpingo-oophorectomy 2015 OPERATION PERFORMED: Laparotomy and revision of Kock pouch access segment angulation. FINDINGS: The patient had severe diffuse adhesions in the lower abdomen and pelvis. There was angulation of the access segment below the abdominal wall before entering into the pouch from scar tissue fibrosis and an old Ethibond suture. DESCRIPTION OF PROCEDURE: The patient was taken to the operating room and under general endotracheal anesthesia with sequential compression device stockings and Parker catheter in place and having received intravenous antibiotics and preoperative subcutaneous heparin, the patient was prepped and draped in the usual fashion. Initially, a Tegaderm was placed over the Kock pouch stoma low in the left lower quadrant. The patient had an old left paramedian incision with the relocated stoma coming through it. There was also a long midline scar. The midline incision was reopened excising the skin scar from umbilicus to pubis. There were moderately severe adhesions throughout the abdomen. During the procedure, I inserted a 28-Emirati Parker catheter through the stoma into the pouch to help mobilize the pouch from the pelvis. The bladder and ureters were protected. Hemostasis was achieved with cautery and occasional [id number] 3-0 silk sutures. With the catheter in the pouch, it was possible to clearly palpate a well-formed approximately 5 cm long nipple valve and the patient had no incontinence. Once there were sufficient mobilization and findings described above were observed, the scar tissue was taken down and the Ethibond suture cut. It was now possible to readily insert the 28-Emirati Parker catheter in and out of the pouch as well as a Milan suction. I also used cervical dilators up to #13, which went in readily. There was some difficulty dissecting free the afferent bowel, but I felt that testing the pouch under pressure was not essential since with all the difficulty with intubation, the patient had never had any incontinence and with the pouch endoscopy, the valve was seen to be well formed and is also observed during surgery. The field was irrigated and hemostasis was secured. The bowel loops were replaced anatomically. I considered doing catheter gastrostomy, but the stomach was very high under the left costal margin, and I did not feel it was indicated to extend the incision and the procedure just to accomplish that. Anesthesia placed an orogastric tube to decompress the stomach and then removed it. After ascertaining the hemostasis was secured, the incision was closed in one layer with continuous looped 0 PDS. The subcutaneous tissue was irrigated with antibiotic solution and skin closed with shai. Before closure, the 28-Emirati Parker catheter had been appropriately positioned in the apex of the pouch, marked at the level of the stoma with 3-0 silk, and then sutured to the skin with two sutures of 2-0 silk. The catheter was flushed and connected to a gravity drainage bag. Final sponge and needle counts were correct. Dry sterile dressings were applied. The patient tolerated the procedure well and left the operating room in good condition. Nicanor Whalen M.D. DR: RAFFI JOB#: [id number] CC: RAYMOND
--- NOTE | 2018-07-28 19:05 | NUR ---
NURSE NOTES: RESTING IN BED. IN NO ACUTE DISTRESS.
[2018-07-28] MEDS: PCA shift volume MISC SCH (19:11)
--- NOTE | 2018-07-28 19:25 | NUR ---
NURSE NOTES: Report taken from LINO Jang. Patient asleep in bed, fatigued from procedure, responds to name. A&Ox4, at bedside. No signs of distress on 2L NC, continuous O2 monitor. IS at bedside. Having pain central to surgical area, 07/17, instructed use of TRAY DELIVERY AIDE Dilaudid (.), patient returned instructions. PICC TOMI, c/d/i and patent, running NS + 20KCl at 100mls/hr. Skin is intact, see surgical wound assessment. Parker c/d/i and running light yellow urine. Bed in lowest position, call light within reach.
[2018-07-28] MEDS: Dyna-Hex 2% Top Sol 2oz TOPIC SCH (20:00)
[2018-07-28] MEDS: Iron Sucrose 100 MG in NS 55 ML IV SCH (21:24)
[2018-07-28] MEDS: BELSOMRA 10 MG ORAL PRN (23:47)
[2018-07-29 00:53] VITALS: BP 120/70
[2018-07-29] MEDS: NS w/KCl 20mEq 1000ml 1,000 ML IV SCH ×2 (02:42→11:06)
[2018-07-29 04:00] VITALS: BP 107/63
[2018-07-29 05:33] LABS: BASOPHILS % (AUTO) 0.2 % (0.0-2.0); HEMATOCRIT 27.1 % (37.0-47.0); HEMOGLOBIN 8.9 G/DL (12.0-16.0); LYMPHOCYTES % (AUTO) 7.3 % (20.0-45.0); MEAN CORPUSCULAR VOLUME 82 FL (80-99); MONOCYTES % (AUTO) 12.4 % (1.0-10.0); NEUTROPHILS % (AUTO) 80.1 % (45.0-75.0); PLATELET COUNT 300 K/UL (150-450); RED BLOOD COUNT 3.32 M/UL (4.20-5.40); RED CELL DISTRIBUTION WIDTH 14.1 % (11.6-14.8)
[2018-07-29 06:05] LABS: ANION GAP 12 mmol/L (5-15); BLOOD UREA NITROGEN 16 mg/dL (7-18); CALCIUM 8.7 MG/DL (8.5-10.1); CARBON DIOXIDE 23 MMOL/L (21-32); CHLORIDE 103 MMOL/L (98-107); CREATININE 1.5 MG/DL (0.55-1.30); SODIUM 138 MMOL/L (136-145)
[2018-07-29] MEDS: Insulin NovoLOG Flexpen S/S (Mod) SUBQ SCH ×3 (06:09→16:42)
--- NOTE | 2018-07-29 06:58 | NUR ---
NURSE NOTES: Patient had a good night. pain medication given 07/28/18 at 2254. Outputs below UO: 475cc Ileo: 70cc (output)-80cc(flush)= -10 cc
[2018-07-29] MEDS: PCA shift volume MISC SCH ×2 (07:06→19:01)
--- NOTE | 2018-07-29 07:12 | NUR ---
HAND-OFF: Report given to LINO Jang. Patient is asleep in bed, VS stable.
--- NOTE | 2018-07-29 07:43 | NUR ---
NURSE NOTES: AWALE/ALERT. PAIN SCALE 8/10. ON CHEF KITCHEN MANAGER DILAUDID. NPO MAINTAINED X ICE CHIPS. IN NO ACUTE DISTRESS.
[2018-07-29 08:00] VITALS: BP 102/62
[2018-07-29] MEDS: Pantoprazole Inj IVP SCH (08:37)
[2018-07-29] MEDS: Metoprolol 25mg tab ORAL SCH ×2 (08:41→20:32)
[2018-07-29] MEDS: Lisinopril 2.5mg tab ORAL SCH (08:42)
--- NOTE | 2018-07-29 10:21 | NUR ---
RD ASSESSMENT & RECOMMENDATIONS SEE CARE ACTIVITY FOR COMPLETE ASSESSMENT DAILY ESTIMATED NEEDS: Needs based on Pending surgery 51kg adj 25-35 kcals/kg 4368-9193 total kcals 1-2 g protein/kg 51-102 g total protein 25-30 mL/kg 7526-8623 total fluid mLs NUTRITION DIAGNOSIS: Altered GI function r/t malfunctioning ileostomy as evidenced by pt w/ history of ulcerative colitis, s/p kock pouch revision, NPO, PPN pending. CURRENT DIET:NPO PO DIET RECOMMENDATIONS: PER MD PARENTERAL NUTRITION RECOMMENDATIONS: D/AA Rate: 55 IL Rate: 5 Total Rate: 60 Volume: 1440 % Dextrose: 10 % AA: 3 Energy (kcals/kg): 847 Protein (g/kg protein): 40 Nonprotein KCALS: 689 GIR (mg CHO/kg/min): 1.8 % Fat KCALS: 28 NCP: N Ratio: 109:1 PPN Comment: - PPN recs as above, D10% + AA 3.0% @55ml w/ IL20% @5ml/hr: all 3:1, @60ml/hr. - Start @20ml/hr for 6 hrs, advance 10ml/hr q4-6 hrs to goal. - PPN at goal provides 847kcal (17kcal/kg) and 40g pro (.8g/kg), meets 66% est kcal and 78% est pro needs, - GIR <5, IL <30%, NPC >100:1. ----- ADDITIONAL RECOMMENDATIONS: 1) PPN recs as above 2) CHECK DAILY: BG, LYTES on PPN LFT's check weekly 3) Weekly weights 4) Diet per
--- NOTE | 2018-07-29 10:30 | Physician Query ---
Clarification is required for compliance, coding accuracy, and to reflect severity of illness for this patient Dear Dr. Nicanor Whalen Date: 07/29/2018 Policy Issue Clerk/CDS Name: Stephanie Finney Clinical Documentation states: 68 F with Malfunctioning Kock pouch continent ileostomy with inability to catheterize to evacuate stool. 07/26 note: Imp. Dehydration, resolved, Anemia due to iron deficiency, Protein malnutrition, Malfunctioning Kock Pouch with inability to intubate RD note: Altered GI function r/t malfunctioning ileostomy as evidenced by pt w/ history of ulcerative colitis, s/p kock pouch, NPO w/ pending surgical revision Labs: Albumin 3.0, A/G ratio 0.9, BMI 25 Treatment: TPN, pouch revision Kindly specify degree of malnutrition in this patient. PHYSICIAN RESPONSE: [] Mild protein calorie malnutrition [] Moderate protein calorie malnutrition [] Severe protein calorie malnutrition [] Other [] Unknown Present on Admission: [] Yes [] No [] Clinically Undetermined 08/04/2018 Physician signature Date Please also document in your Progress Notes and/or Discharge Summary and indicate if the condition was present on admission. Note: The severity of malnutrition in adults is now redefined by the ASPEN malnutrition consensus based on clinical context and characteristics, unlike the traditional definition which solely relied on labs and BMI/body weight. Thank you, Stephanie Dasmisael ANDRADE
--- NOTE | 2018-07-29 11:18 | NUR ---
NURSE NOTES: OOB,AMBULATED OUT IN THE [place] WITH ASSIST,TOLERATED.
--- NOTE | 2018-07-29 11:53 | 48 Hour Post Anesthesia Eval ---
Post Anesthesia Evaluation Procedure: Laparotomy, revision kock pouch Date of Evaluation: July 29, 2018 Time of Evaluation: 07:06 Blood Pressure Systolic: 102 0: 62 Pulse Rate: 69 Respiratory Rate: 19 Temperature (Fahrenheit): 97.1 O2 Sat by Pulse Oximetry: 96 Nausea: No Vomiting: No Pain Intensity: 2 Hydration Status: adequate Cardiopulmonary Status: Stable Mental Status/LOC: patient returned to baseline Follow-up Care/Observations: 0 Post-Anesthesia Complications: 0 Follow-up care needed: N/A Montrell Maza MD July 29, 2018 11:53
[2018-07-29 12:00] VITALS: BP 97/57
--- NOTE | 2018-07-29 12:33 | NUR ---
CASE MANAGEMENT:REVIEW 07/28/18 SI: POD #2 AND POD #1 S/P REVISION OF KOCK POUCH 99.5 74 19 97/57 99% ON 2L/NC WBC+11.0 H/H-8.9/27.1 CR+1.5 IS: PIPE STRIPPER DILAUDID START TPN/IL @60/HR IVF+KCL@100/HR IV PROTONIX QD LISINOPRIL PO QD LOPRESSOR PO Q12 : MED/SURG STATUS 3 EAST DCP: HOME
--- NOTE | 2018-07-29 14:54 | General Progress Note ---
Progress Note Progress Note AVSS . Comfortable with Dilaudid TRAVELING ELECTRICIAN with increased basal infusion of 0.2mg/hr Ambulated in hallways this AM Chest clear with decreased expansion Cor reg rhythm Abdomen soft, slightly distended, incision clean Urine 475cc/12 hours overnight Kock pouch ileo scant WBC 11,000 Hgb 8.9 BUN up16 Cr up 1.5 Imp. Ileus Pre-op Malnutrition Pre-op anemia Plan: Continue npo today Start PPN (PIC in SCV vein), continue Venofer and IV antibiotics continue Parker (pelvic dissection of Kock pouch from bladder) f/u labs Nicanor Whalen MD July 29, 2018 14:54
[2018-07-29] MEDS ORDERED: Sterile Water Irrig 1000ml IRRIG ONE (15:11)
[2018-07-29 16:00] VITALS: BP 99/58
--- NOTE | 2018-07-29 18:57 | NUR ---
NURSE NOTES: RESTING IN BED. IN NO ACUTE DISTRESS.
--- NOTE | 2018-07-29 19:15 | NUR ---
NURSE NOTES: Received report & pt from LINO Jang. Pt lying in bed, a&ox4, in room air. No s/s of acute distress & c/o 6/10 pain. Would like pain med @ 2000 with the rest of her meds. Encouraged pt to ambulate one more time tonight & pt agreed. Ileo & F/C intact. Surgical dressing C/D?I. PICC site intact with IVF running as ordered. CRYSTAL MACHINING COORDINATOR settings checked. Bed in lowest position, call light & CRYSTAL MACHINING COORDINATOR pump within reach. Will continue to monitor.
[2018-07-29 20:00] VITALS: BP 113/67
[2018-07-29] MEDS: Dyna-Hex 2% Top Sol 2oz TOPIC SCH (20:08)
[2018-07-29] MEDS: TPN IV SCH (20:08)
[2018-07-29] MEDS: FAT EMULSION 20% IV SCH (20:08)
[2018-07-29] MEDS: Iron Sucrose 100 MG in NS 55 ML IV SCH (20:09)
[2018-07-29] MEDS: BELSOMRA 10 MG ORAL PRN (22:01)
[2018-07-30] VITALS (7 sets, daily range): BP systolic 107–120; BP diastolic 63–68
[2018-07-30] MEDS: Insulin NovoLOG Flexpen S/S (Mod) SUBQ SCH ×4 (00:12→18:28)
--- NOTE | 2018-07-30 06:15 | NUR ---
NURSE NOTES: Spoke with [employer] pharmacist Olga. Per Olga, POOLING OPERATOR Dilaudid not loaded in all of the unit's pyxis. Pharmacy will load med at around 0700.
[2018-07-30 06:29] LABS: BASOPHILS % (AUTO) 0.5 % (0.0-2.0); EOSINOPHILS % (AUTO) 1.7 % (0.0-3.0); HEMATOCRIT 26.6 % (37.0-47.0); HEMOGLOBIN 8.4 G/DL (12.0-16.0); LYMPHOCYTES % (AUTO) 11.2 % (20.0-45.0); MEAN CORPUSCULAR VOLUME 83 FL (80-99); MONOCYTES % (AUTO) 10.8 % (1.0-10.0); NEUTROPHILS % (AUTO) 75.8 % (45.0-75.0); PLATELET COUNT 251 K/UL (150-450); RED BLOOD COUNT 3.21 M/UL (4.20-5.40); RED CELL DISTRIBUTION WIDTH 15.1 % (11.6-14.8); WHITE BLOOD COUNT 7.2 K/UL (4.8-10.8)
--- NOTE | 2018-07-30 06:30 | NUR ---
NURSE NOTES: Changed PICC line dressing without incident.
[2018-07-30 06:53] LABS: ANION GAP 8 mmol/L (5-15); BLOOD UREA NITROGEN 16 mg/dL (7-18); CALCIUM 9.2 MG/DL (8.5-10.1); CARBON DIOXIDE 24 MMOL/L (21-32); CHLORIDE 102 MMOL/L (98-107); CREATININE 1.2 MG/DL (0.55-1.30); PHOSPHORUS 2.3 MG/DL (2.5-4.9); POTASSIUM 4.4 MMOL/L (3.5-5.1); SODIUM 134 MMOL/L (136-145)
[2018-07-30] MEDS: PCA shift volume MISC SCH ×2 (07:00→19:00)
--- NOTE | 2018-07-30 07:30 | NUR ---
HAND-OFF: Report given to LINO Edgar. Pt instable condition. Rounds done. Called & left msg to Dr. Whalen regarding pt's Mg & Phos level. Endorsed to LINO Edgar
--- NOTE | 2018-07-30 07:45 | NUR ---
NURSE NOTES: Received report from Renee HUYNH. Patient is awake alert and oriented x4, no acute distress noted. Patient reporting pain well managed with CONCRETE BUSTER OPERATOR at this time. CONCRETE BUSTER OPERATOR settings checked and verified against order. IVF and TPN running per order. TOMI PICC dressing clean, dry, intact. Surgical dressing clean, dry, intact. Ileo and kennedy to gravity drainage. SCD's on. Side rails upx2, bed low and locked, call light in reach. Will continue to monitor.
[2018-07-30] MEDS ORDERED: PCA HYDROmorphone 30mg/30ml Syr IV PRN (08:15)
[2018-07-30] MEDS ORDERED: Rate Change PCA 1 Each MISC PRN (08:15)
--- NOTE | 2018-07-30 08:17 | General Progress Note ---
Progress Note Progress Note AVSS Able to ambulate in hallways. c/o intermittent nausea Abdomen soft, mildly distended, incision clean Urine 1075 / 24 hours - clear yellow Kock pouch ileo - no enteric output - catheter repositioned WBC down 7200 Hgb down 8.4 BUN 16 Cr downs 1.2 Phosphorus 2.3 Mg 1.3 Imp. Ileus Plan: continue npo, PPN, Venofer, IV antibiotics, Parker Mg and Phos infusions f/u lab f/u Kock pouch ileo output Nicanor Whalen MD July 30, 2018 08:17
--- NOTE | 2018-07-30 08:29 | NUR ---
NURSE NOTES: Patient ambulated in hallway this morning. Reported nausea following ambulation, no emesis. Patient situated back in bed and SCD's placed back on. Zofran IVP given for nausea. Will continue to monitor.
[2018-07-30] MEDS: Pantoprazole Inj IVP SCH (09:23)
[2018-07-30] MEDS: Metoprolol 25mg tab ORAL SCH ×2 (09:23→20:43)
[2018-07-30] MEDS: Lisinopril 2.5mg tab ORAL SCH (09:25)
[2018-07-30] MEDS ORDERED: Potassium Phosphate 20 MM in NS 275 ML IV ONE ×2 (10:00→13:00)
--- NOTE | 2018-07-30 14:30 | NUR ---
NURSE NOTES: Patient reported nausea and migraine pain. Zofran IVP and patient' own med given. Patient reporting relief from nausea, no emesis noted.
[2018-07-30] MEDS ORDERED: 1/2 NS 1000ml IV ONE (18:02)
[2018-07-30] MEDS ORDERED: NS Irrig 1000ml ONE (18:02)
[2018-07-30] MEDS ORDERED: Tubing IV Secondary IV ONE (18:02)
--- NOTE | 2018-07-30 18:30 | NUR ---
NURSE NOTES: Total ileo output for my shift: -30mL Total urine output: 650mL Patient ambulated in hallway x2. No reports of nausea at this time, pain well managed with MINUTE CLERK.
--- NOTE | 2018-07-30 19:30 | NUR ---
HAND-OFF: Report given to Renee HUYNH. Patient is in stable condition.
--- NOTE | 2018-07-30 19:30 | NUR ---
NURSE NOTES: Received report & pt from LINO Edgar. Pt lying in bed, a&ox4, in room air, at bedside. No s/s of acute distress & no c/o pain. Ileo & F/C intact. Surgical dressing C/D/I. PICC site intact with IVF & TPN running as ordered. INSURANCE COMPLIANCE ANALYST settings checked. Bed in lowest position, call light & INSURANCE COMPLIANCE ANALYST pump within reach. Will continue to monitor.
[2018-07-30] MEDS: Dyna-Hex 2% Top Sol 2oz TOPIC SCH (20:20)
[2018-07-30] MEDS: Iron Sucrose 100 MG in NS 55 ML IV SCH (20:20)
[2018-07-30] MEDS: TPN IV SCH (20:21)
[2018-07-30] MEDS: FAT EMULSION 20% IV SCH (20:21)
[2018-07-30] MEDS: BELSOMRA 10 MG ORAL PRN (22:40)
[2018-07-31] VITALS: BP 91/54
[2018-07-31] MEDS: Insulin NovoLOG Flexpen S/S (Mod) SUBQ SCH ×4 (00:10→18:15)
[2018-07-31 04:00] VITALS: BP 110/61
[2018-07-31 05:42] LABS: EOSINOPHILS % (AUTO) 5.6 % (0.0-3.0); HEMATOCRIT 25.2 % (37.0-47.0); HEMOGLOBIN 8.2 G/DL (12.0-16.0); MEAN CORPUSCULAR VOLUME 82 FL (80-99); MONOCYTES % (AUTO) 9.6 % (1.0-10.0); NEUTROPHILS % (AUTO) 68.8 % (45.0-75.0); PLATELET COUNT 230 K/UL (150-450); RED BLOOD COUNT 3.06 M/UL (4.20-5.40); RED CELL DISTRIBUTION WIDTH 15.3 % (11.6-14.8); WHITE BLOOD COUNT 6.6 K/UL (4.8-10.8)
[2018-07-31 06:13] LABS: ANION GAP 8 mmol/L (5-15); BLOOD UREA NITROGEN 11 mg/dL (7-18); CALCIUM 8.5 MG/DL (8.5-10.1); CARBON DIOXIDE 25 MMOL/L (21-32); CHLORIDE 100 MMOL/L (98-107); CREATININE 0.9 MG/DL (0.55-1.30); PHOSPHORUS 2.3 MG/DL (2.5-4.9); SODIUM 133 MMOL/L (136-145)
[2018-07-31] MEDS: PCA shift volume MISC SCH ×2 (07:23→19:00)
--- NOTE | 2018-07-31 07:24 | NUR ---
NURSE NOTES: Received report from LINO Duran. Rounding done with outgoing nurse. Patient asleep. at bedside. Pt has PAPER COATING SUPERVISOR. Parker catheter is patent and yellowish color noted. Bed in lowest position, call light within reach. Will continue to monitor.
--- NOTE | 2018-07-31 07:25 | NUR ---
HAND-OFF: Report given to LINO Mckeon. Pt in stable condition. Rounds done. laced a call to Dr. Whalen & left [facility] regarding Hgb, Hct, Mg, & Phos levels. LINO Mckeon aware.
[2018-07-31 08:00] VITALS: BP 130/73
[2018-07-31] MEDS ORDERED: PCA HYDROmorphone 30mg/30ml Syr IV PRN (08:15)
[2018-07-31] MEDS ORDERED: Rate Change PCA 1 Each MISC PRN (08:30)
[2018-07-31] MEDS: Pantoprazole Inj IVP SCH (09:12)
[2018-07-31] MEDS: Metoprolol 25mg tab ORAL SCH ×2 (09:12→20:39)
[2018-07-31] MEDS: Lisinopril 2.5mg tab ORAL SCH (09:13)
--- NOTE | 2018-07-31 10:30 | NUR ---
NURSE NOTES: Patient ambulates hallway x2 with RN and assistance. Patient is stable.
[2018-07-31 12:00] VITALS: BP 108/63
--- NOTE | 2018-07-31 12:02 | General Progress Note ---
Progress Note Progress Note AVSS Ambulates in hallways. Abdomen more distended, soft, incision clean Urine 1200 with very ++ I&O Kock pouch ileo nil - only return of NS irrigation WBC 6600 Hgb down 8.2 Na 133 k 4.0 BUN down 11 Cr down 0.9 P 2.3 and Mg 1.3 still low Imp. Ileus + I&O Plan: Lasix 20mg IV decrease IV fluids Mg and P infusions continue npo and kennedy f/u labs I removed the indwelling Kock Pouch catheter - new 28 Kennedy inserted with no resistance but also no enteric output - will continue q3h flushing with 20cc NS Nicanor Whalen MD July 31, 2018 12:02
--- NOTE | 2018-07-31 13:57 | NUR ---
DIRECTOR OF FINANCEHAIRPIECE STYLIST SI: POD #4 S/P LAPAROTOMY REVISION OF PATEL POUCH T. 99.5 HR 82 RR 20 B/P 110/70 IS: TPN IV K-PHOS IV IVF NS@ 30ML/HR FLAGYL IV LEVAQUIN IV IRON IV DILAUDID IV MED/SURG STATUS
[2018-07-31] MEDS ORDERED: Potassium Phosphate 30 MM in NS 275 ML IV SCH (14:00)
--- NOTE | 2018-07-31 15:33 | NUR ---
SS note Chart reviewed; no SW needs or concerns identified at this time. Patient plans to discharge to home when ready for discharge (independent overall).
--- NOTE | 2018-07-31 15:50 | NUR ---
NURSE NOTES: Patient ambulates hallway x1 with RN assistance. Patient is stable condition.
[2018-07-31 16:00] VITALS: BP 107/62
--- NOTE | 2018-07-31 19:33 | NUR ---
HAND-OFF: Report given to Christian Moe RN.
[2018-07-31 20:00] VITALS: BP 124/74
[2018-07-31] MEDS: FAT EMULSION 20% IV SCH (20:00)
[2018-07-31] MEDS: Dyna-Hex 2% Top Sol 2oz TOPIC SCH (20:00)
[2018-07-31] MEDS: TPN IV SCH (20:00)
--- NOTE | 2018-07-31 20:00 | NUR ---
NURSE NOTES: Patient in bed awake and oriented. VSS. no SOB noted. PICC line flushed with TPN and IV fluids running, tolerated well. Ileo flushed per MD's orders. output is still clear in color. Pain managed well by BRANCH MAKER. Instructed use of IS. Dressing is clean and dry. Needs attended. Family at bedside. In stable condition.
[2018-07-31] MEDS: Iron Sucrose 100 MG in NS 55 ML IV SCH (20:39)
--- NOTE | 2018-07-31 21:00 | NUR ---
NURSE NOTES: Patient ambulated in the hallway with RN assist x1. Assisted back to bed. PRN pain medication given for 7/10 surgical pain.
[2018-07-31] MEDS: BELSOMRA 10 MG ORAL PRN (23:04)
[2018-08-01] VITALS (8 sets, daily range): BP systolic 114–148; BP diastolic 64–86
[2018-08-01] MEDS: LORazepam 1mg tab SL PRN ×2 (03:24→23:58)
[2018-08-01 05:34] LABS: BASOPHILS % (AUTO) 1.1 % (0.0-2.0); EOSINOPHILS % (AUTO) 6.8 % (0.0-3.0); HEMATOCRIT 25.1 % (37.0-47.0); HEMOGLOBIN 8.2 G/DL (12.0-16.0); LYMPHOCYTES % (AUTO) 19.2 % (20.0-45.0); MEAN CORPUSCULAR VOLUME 82 FL (80-99); MONOCYTES % (AUTO) 12.4 % (1.0-10.0); NEUTROPHILS % (AUTO) 60.5 % (45.0-75.0); PLATELET COUNT 227 K/UL (150-450); RED BLOOD COUNT 3.07 M/UL (4.20-5.40); RED CELL DISTRIBUTION WIDTH 15.1 % (11.6-14.8); WHITE BLOOD COUNT 4.6 K/UL (4.8-10.8)
[2018-08-01 06:00] LABS: ANION GAP 5 mmol/L (5-15); BLOOD UREA NITROGEN 12 mg/dL (7-18); CALCIUM 8.3 MG/DL (8.5-10.1); CARBON DIOXIDE 29 MMOL/L (21-32); CHLORIDE 100 MMOL/L (98-107); CREATININE 0.7 MG/DL (0.55-1.30); PHOSPHORUS 2.8 MG/DL (2.5-4.9); SODIUM 134 MMOL/L (136-145)
[2018-08-01] MEDS: Insulin NovoLOG Flexpen S/S (Mod) SUBQ SCH ×2 (06:00)
[2018-08-01] MEDS: PCA shift volume MISC SCH ×2 (07:15→19:00)
--- NOTE | 2018-08-01 07:20 | NUR ---
NURSE NOTES: Received report from Christian Moe RN. Patient is sleeping. is at bedside. Will continue to monitor.
--- NOTE | 2018-08-01 08:56 | General Progress Note ---
Progress Note Progress Note AVSS Intermittent abdominal incisional pain. cramps of thighs, legs Abdomen mildly distended, soft, incision clean Legs without swelling or tenderness Urine 2800 (had Lasix) Kock pouch ileo still nil despite change of catheter yesterday WBC 4600 Hgb 8.2 (stable) Mg 1.3 P 2.8 (up) Imp. Ileus Plan: continue npo, kennedy, PPN, Mg infusions d/c basal infusion of DISTRICT WILDLIFE MANAGER f/u labs Nicanor Whalen MD August 01, 2018 08:56
[2018-08-01] MEDS ORDERED: Fluconazole 100mg tab ORAL SCH (09:00)
[2018-08-01] MEDS ORDERED: PCA HYDROmorphone 30mg/30ml Syr IV PRN (09:00)
[2018-08-01] MEDS: Metoprolol 25mg tab ORAL SCH ×2 (09:12→21:32)
[2018-08-01] MEDS: Lisinopril 2.5mg tab ORAL SCH (09:12)
[2018-08-01] MEDS: Pantoprazole Inj IVP SCH (09:12)
--- NOTE | 2018-08-01 10:15 | NUR ---
NURSE NOTES: Left arm is swollen and cool to touch. Discontinued IV fluid. Called Dr. Whalen and left the message.
--- NOTE | 2018-08-01 10:22 | NUR ---
NURSE NOTES: Dr. Whalen called back and ordered venous duplex scan of left upper extremity. Noted and carried out.
--- NOTE | 2018-08-01 11:30 | NUR ---
NURSE NOTES: Patient ambulates hallway x1 with RN, assistance. Patient is stable.
--- NOTE | 2018-08-01 12:14 | NUR ---
NURSE NOTES: Blood sugar was [address] Whalen if he wants me to give novolog or hold. Left the message.
--- NOTE | 2018-08-01 12:18 | NUR ---
NURSE NOTES: Dr. Whalen called back and ordered. 1. 1/2 NS w/ kcl 20 meq @ 85ml/hr 2. D/C TPN 3. No coverage novolog 4. Start IV insertion on right arm Noted and carried out.
--- NOTE | 2018-08-01 13:27 | NUR ---
NURSE NOTES: Venous duplex scan of left upper extremity was done. USG tech said it is negative. Called Dr. Whalen and left the message.
--- NOTE | 2018-08-01 13:45 | NUR ---
NURSE NOTES: Dr. Whalen called and ordered remove PICC line. Noted and carried out.
[2018-08-01] MEDS: 1/2NS w/KCl 20mEq 1000ml 1,000 ML IV SCH (13:47)
--- NOTE | 2018-08-01 14:03 | Diagnostic Imaging Report ---
EXAM: US Duplex Left Upper Extremity Veins CLINICAL HISTORY: Left upper extremity swelling TECHNIQUE: Real-time duplex ultrasound scan of the left upper extremity veins integrating B-mode two-dimensional vascular structure, Doppler spectral analysis, color flow Doppler imaging and compression. COMPARISON: No relevant prior studies available. FINDINGS: Deep veins: Unremarkable. No DVT in the visualized internal jugular, subclavian, axillary, or brachial veins. The veins demonstrate normal color flow, are normally compressible, with normal phasic flow and/or augmentation response. Superficial veins: Unremarkable. No thrombus in the visualized basilic and cephalic veins. Soft tissues: Unremarkable. No fluid collections. IMPRESSION: No evidence of DVT in the visualized venous segments of the left upper extremity..
--- NOTE | 2018-08-01 15:29 | NUR ---
NURSE NOTES: PICC line was removed and pt. is stable condition.
[2018-08-01] MEDS ORDERED: NS Irrig 1000ml ONE (16:47)
[2018-08-01] MEDS ORDERED: 1/2 NS 1000ml IV ONE (16:47)
[2018-08-01] MEDS ORDERED: Tubing IV Secondary IV ONE (16:47)
--- NOTE | 2018-08-01 17:00 | NUR ---
NURSE NOTES: Dr. Whalen called and ordered check BP on right arm/ left arm. Noted and carried out.
--- NOTE | 2018-08-01 17:15 | NUR ---
NURSE NOTES: Checked BP as MD ordered and called and left the message, results of BP.
--- NOTE | 2018-08-01 19:46 | NUR ---
HAND-OFF: Report given to LINO Ambrosio. Patient is stable condition.
--- NOTE | 2018-08-01 19:50 | NUR ---
NURSE NOTES: Received report from LINO Klein. Patient in stable condition, resting. Encouraged to ambulate, plan to ambulate a little later in the evening. Bed in low position, side rails up x2, locked. Call light within reach. at bedside. IV site intact, patent. Abdominal dressing dry and intact. Ileostomy draining greenish fluid. Parker catheter draining light yellow urine. Has pain rated 7/10, refused medication for now. Repositioned for comfort. Heating pad as ordered for legs, SCDs off for now. Will continue to monitor.
[2018-08-01] MEDS: Dyna-Hex 2% Top Sol 2oz TOPIC SCH (20:00)
--- NOTE | 2018-08-01 20:00 | NUR ---
NURSE NOTES: Patient using GARMENT SUPERVISOR for pain control, refused further medication for pain at this time.
[2018-08-01] MEDS ORDERED: Iron Sucrose 100 MG in NS 55 ML IV SCH (21:00)
--- NOTE | 2018-08-01 21:32 | NUR ---
NURSE NOTES: Patient would like to ambulate at a later time. Encouraged to move legs in bed, placed SCDs back on. Patient using incentive spirometer. Repositioned.
--- NOTE | 2018-08-01 23:15 | NUR ---
NURSE NOTES: Pt c/o of leg cramps. SCD's off. Skin warm to touch bilat, pedal pulse present bilat, Jaleel's sign negative bilat. Reapplied heating pad per order. Denies other pain, states has been sleeping on and off.
[2018-08-02] VITALS (7 sets, daily range): BP systolic 119–163; BP diastolic 72–96
[2018-08-02] MEDS: 1/2NS w/KCl 20mEq 1000ml 1,000 ML IV SCH ×2 (01:04→16:45)
--- NOTE | 2018-08-02 06:55 | NUR ---
NURSE NOTES: Parker catheter discontinued per MD orders. Pt tolerated well. Encouraged to call to get out of bed. Call light within reach.
[2018-08-02] MEDS: PCA shift volume MISC SCH ×2 (07:00→19:00)
--- NOTE | 2018-08-02 07:30 | NUR ---
HAND-OFF: Report given to LINO Edgar.
--- NOTE | 2018-08-02 08:00 | NUR ---
NURSE NOTES: Received report from Daily HUYNH. Patient is awake alert and oriented x4, no acute distress noted. Patient is reporting pain in abdomen rated 6/10, but states pain is well managed with LAUNDRY HOUSEKEEPING AIDE. LAUNDRY HOUSEKEEPING AIDE settings checked and verified against order. Right wrist IV appears swollen and patient states it is starting to become painful. Will remove and attempted IV access. Ileo to gravity drainage, draining light green output. Per report, kennedy was removed approximately 0655 this morning, will place BSC at bedside and follow up to make sure patient voids. Patient educated to inform RN when ready to void. Patient and her updated on plan of care. Side rails upx2, bed low and locked, call light in reach. Will continue to monitor.
[2018-08-02] MEDS ORDERED: NS 500ML ONE (08:23)
[2018-08-02] MEDS ORDERED: Sterile Water Irrig 1000ml IRRIG ONE (08:23)
--- NOTE | 2018-08-02 08:32 | NUR ---
NURSE NOTES: Called Dr. Whalen regarding difficult IV access and reported to MD that lab was unable to collect CBC, BMP, and Mag this morning. Awaiting call back from MD with further orders.
--- NOTE | 2018-08-02 08:54 | NUR ---
NURSE NOTES: Received callback from Dr. Whalen. ordered to discontinue all IV medications and start patient on a clear liquid diet. MD stated he will place orders for alternate pain medication route today. MD ordered to remove the patient's IV and stated it is ok for patient to have no IV access. Orders entered, will carry out.
--- NOTE | 2018-08-02 09:25 | General Progress Note ---
Progress Note Progress Note AVSS Left arm became swollen and cold - venous duplex study negative for any DVT. Normal BP both arms and + radial pulse Now arm is warm, still mildly swollen - ?? infiltration of PIC line infused fluids (line tip in subclavia vein) PIC line removed - now no venous access at all ABdomen mildly distended, tender diffusely, soft, incision clean Urine 3750 Kock pouch ileo nil but now with enteric fluid draining labs pending Imp. Persistent ileus 'Plan: start central line continue npo maintain continuous drainage of Kock pouch f/u re labs Nicanor Whalen MD August 02, 2018 09:25
[2018-08-02] MEDS ORDERED: Lidocaine 1% 10mg/ml/Epi 0.005mg/ml 30ml vial INJ SCH (09:30)
[2018-08-02] MEDS ORDERED: Rate Change PCA 1 Each MISC PRN (09:30)
[2018-08-02] MEDS: Lisinopril 2.5mg tab ORAL SCH (09:33)
[2018-08-02] MEDS: Metoprolol 25mg tab ORAL SCH ×2 (09:33→20:17)
--- NOTE | 2018-08-02 09:59 | NUR ---
NURSE NOTES: Patient voided 300mL of clear, yellow urine. No discomfort with voiding reported. Will continue to monitor.
--- NOTE | 2018-08-02 13:26 | NUR ---
RD ASSESSMENT & RECOMMENDATIONS SEE CARE ACTIVITY FOR COMPLETE ASSESSMENT DAILY ESTIMATED NEEDS: Needs based on S/p surgery 51kg adj 25-35 kcals/kg 1136-7240 total kcals 1-2 g protein/kg 51-102 g total protein 25-30 mL/kg 1108-9714 total fluid mLs NUTRITION DIAGNOSIS: Altered GI function r/t malfunctioning ileostomy as evidenced by pt w/ history of ulcerative colitis, s/p kock pouch revision, PPN now held d/t no vascular access. CURRENT DIET:NPO -> now pending CLD PO DIET RECOMMENDATIONS: PER MD PARENTERAL NUTRITION RECOMMENDATIONS: D/AA Rate: 55 IL Rate: 5 Total Rate: 60 Volume: 1440 % Dextrose: 10 % AA: 3 Energy (kcals/kg): 847 Protein (g/kg protein): 40 Nonprotein KCALS: 689 GIR (mg CHO/kg/min): 1.8 % Fat KCALS: 28 NCP: N Ratio: 109:1 TPN Comment: - PPN recs as above, D10% + AA 3.0% @55ml w/ IL20% @5ml/hr: all 3:1, @60ml/hr. - Start @20ml/hr for 6 hrs, advance 10ml/hr q4-6 hrs to goal. - PPN at goal provides 847kcal (17kcal/kg) and 40g pro (.8g/kg), meets 66% est kcal and 78% est pro needs, - GIR <5, IL <30%, NPC >100:1. ---- ADDITIONAL RECOMMENDATIONS: 1) PPN recs as above as needed 2) CHECK DAILY: BG, LYTES on PPN LFT's check weekly 3) Weekly weights 4) Diet per MD -> Add ENSURE CLEAR TID W/ CLD
--- NOTE | 2018-08-02 15:01 | NUR ---
CASE MANAGEMENT: REVIEW 08/02/2018 SI:Malfunctioning Kock Pouch Continent Ileostomy T 98.2 HR 57 RR 18 B/P 137/72 SATS 97% ON RA NO LABS TODAY IS:CYMBALTA PO QD LISINOPRIL PO QD LOPRESSOR PO Q12H MED/SURG STATUS PLAN OF CARE: CXR start central line continue npo maintain continuous drainage of Kock pouch
--- NOTE | 2018-08-02 15:01 | Operative Note - PDOC ---
Operative Note Operative Note Date of Operation/Procedure: August 02, 2018 Pre-op Diagnosis: poor venous access, failure to thrive Procedure: right internal jugular central venous catheter insertion under ultrasound guidance Post-op Diagnosis: same as pre-op Operative Findings: consistent w/pre-op dx studies Surgeon: Toya Anesthesiologist: n/a Anesthesia: general, local Specimen: none Complications: none Condition: stable Estimated Blood Loss: minimal Drains: none Implant(s) used?: No Indications for Procedure 68 year old female s/p recent abdominal surgery who is not able to tolerate oral intake requiring IV fluids and meds. Recent left arm PICC line required removal and currently has not venous access. multiple attempts at peripheral venous access not successful. central venous access indicated and recommended. consent obtained. Description of Procedure CPT Code: 15473-92 (ultrasound guidance) PROCEDURE PERFORMED Limited Ultrasound-guided Right internal jugular central line placement. DESCRIPTION OF PROCEDURE IN DETAIL The patient was lying in the trendelenburg position with head turned 30 degrees away from the insertion site. The skin was thoroughly sponged with chlorhexidine and allowed to dry. All persons involved were shielded with hairnets, facemasks and sterile gowns. With sterile- gloved hands the right neck area was draped with the large disposable sterile field provided in the pre-manufactured kit. The skin and subcutaneous tissues superficial to the right internal jugular vein were anesthetized with 5 mL of 1% lidocaine w/ epi. The internal jugular vein was identified on ultrasound from the angle of the mandible down into the supraclavicular fossa using the linear ultrasound probe in the transverse orientation. The carotid artery was identified and avoided utilizing color-flow. The internal jugular vein was then placed in the center of the ultrasound field and compressed for patency. A movement artifact was identified as the needle was advanced through the skin and advanced toward the vessel. A real time hyperechoic signal revealed visualization of vascular needle entry into the lumen as blood was noted to flashback in the syringe. The needle was then held in place while the guide wire was advanced. The needle was then removed. Direct visualization of guide wire location within the vein was noted on ultrasound indicating proper placement. A skin dilator was advanced over the guidewire and removed, and the triple-lumen catheter was then advanced over the guide wire into proper position. The guide wire was removed and discarded. The ports were aspirated which showed good blood return and then carefully flushed with normal saline. The catheter was stabilized and sutured to the skin with 2-0 silk at 2 anchor points. A sterile bioocclusive dressing was placed over the catheter, including the insertion site. The patient tolerated the procedure well. A chest x-ray was ordered for position confirmation. An image recording of the procedure accompanies the chart. Jam Pittman August 02, 2018 15:01
--- NOTE | 2018-08-02 15:02 | NUR ---
NURSE NOTES: Right triple lumen IJ central line placed at bedside by Dr. Pittman. Placed STAT chest xray order. Called radiology radiology reports they are on their way up. Patient is in stable condition, tolerated placement well.
--- NOTE | 2018-08-02 15:30 | NUR ---
NURSE NOTES: Central line dressing placed by Dr. Pittman.
--- NOTE | 2018-08-02 15:58 | NUR ---
NURSE NOTES: Contacted Dr. Whalen regarding central line placement. Orders received and entered. MD ordered to change IVF from 1/2 NS @100mL/hr to 1/2 NS with 20meq potassium @ 100mL/hr. Orders entered. Will carry out.
--- NOTE | 2018-08-02 16:24 | Diagnostic Imaging Report ---
History: LINE Exam: XR CXR 1 VIEW Comparison: 07/25/2018 FINDINGS/IMPRESSION: Right IJ line tip projects at the expected area of the superior cavoatrial junction. No radiographic contraindication for use identified. No evidence of pneumothorax or right pleural effusion identified. There is artifact at the upper aspect of the film. No definite focal consolidation identified. Cardiac silhouette appears enlarged.
[2018-08-02] MEDS: PCA HYDROmorphone 30mg/30ml Syr IV PRN (16:41)
--- NOTE | 2018-08-02 17:58 | NUR ---
NURSE NOTES: CBC, BMP, Mag drawn from central line and taken to lab
[2018-08-02 18:01] LABS: BASOPHILS % (AUTO) 0.8 % (0.0-2.0); HEMATOCRIT 24.7 % (37.0-47.0); HEMOGLOBIN 8.2 G/DL (12.0-16.0); LYMPHOCYTES % (AUTO) 18.2 % (20.0-45.0); MEAN CORPUSCULAR VOLUME 80 FL (80-99); PLATELET COUNT 220 K/UL (150-450); RED BLOOD COUNT 3.11 M/UL (4.20-5.40); WHITE BLOOD COUNT 5.2 K/UL (4.8-10.8)
[2018-08-02 18:18] LABS: ANION GAP 9 mmol/L (5-15); BLOOD UREA NITROGEN 9 mg/dL (7-18); CALCIUM 8.7 MG/DL (8.5-10.1); CARBON DIOXIDE 27 MMOL/L (21-32); CHLORIDE 98 MMOL/L (98-107); CREATININE 0.8 MG/DL (0.55-1.30); SODIUM 133 MMOL/L (136-145)
--- NOTE | 2018-08-02 18:30 | NUR ---
NURSE NOTES: Total ileo output: 0mL, effluent is green/brown in color and became more thick throughout my shift. Total urine output: 1000mL Patient did not ambulate today despite encouragement. Patient did get OOB to and from commode several times with assist. Encouraged patient to perform ROM exercises while in bed as tolerated.
--- NOTE | 2018-08-02 18:36 | NUR ---
NURSE NOTES: Called Dr. Whalen and left voicemail reporting Mag of 1.0. Awaiting callback from MD with further orders.
[2018-08-02] MEDS: Magnesium Sulfate 1gm/100ml IVPB SCH ×4 (18:53→22:42)
--- NOTE | 2018-08-02 19:45 | NUR ---
HAND-OFF: Report given to Renee HUYNH. Patient is in stable condition.
--- NOTE | 2018-08-02 19:46 | NUR ---
NURSE NOTES: Received report & pt from LINO Edgar. Pt lying in bed, a&ox4, in room air, at bedside. No s/s of acute distress & c/o 8/10 pain. Will give PRN pain med. Ileo cath intact & draining to gravity. Surgical dressing C/D/I. Right IJ triple lumen intact with IVF running as ordered. MEDICAL ASSISTANT CARDIOLOGY settings checked. Bed in lowest position, call light & MEDICAL ASSISTANT CARDIOLOGY pump within reach. Will continue to monitor.
[2018-08-02] MEDS: Dyna-Hex 2% Top Sol 2oz TOPIC SCH (20:10)
[2018-08-03] MEDS: 1/2NS w/KCl 20mEq 1000ml 1,000 ML IV SCH ×3 (02:35→23:07)
[2018-08-03 04:00] VITALS: BP 143/87
[2018-08-03 06:21] LABS: ANION GAP 6 mmol/L (5-15); BLOOD UREA NITROGEN 9 mg/dL (7-18); CALCIUM 8.9 MG/DL (8.5-10.1); CARBON DIOXIDE 28 MMOL/L (21-32); CHLORIDE 99 MMOL/L (98-107); CREATININE 0.8 MG/DL (0.55-1.30); POTASSIUM 4.2 MMOL/L (3.5-5.1); SODIUM 133 MMOL/L (136-145)
[2018-08-03 06:37] LABS: BASOPHILS % (AUTO) 0.7 % (0.0-2.0); EOSINOPHILS % (AUTO) 5.9 % (0.0-3.0); HEMATOCRIT 27.2 % (37.0-47.0); HEMOGLOBIN 8.9 G/DL (12.0-16.0); LYMPHOCYTES % (AUTO) 18.6 % (20.0-45.0); MEAN CORPUSCULAR VOLUME 82 FL (80-99); MONOCYTES % (AUTO) 15.5 % (1.0-10.0); NEUTROPHILS % (AUTO) 59.3 % (45.0-75.0); PLATELET COUNT 249 K/UL (150-450); RED CELL DISTRIBUTION WIDTH 16.8 % (11.6-14.8); WHITE BLOOD COUNT 5.2 K/UL (4.8-10.8)
[2018-08-03] MEDS: PCA shift volume MISC SCH ×2 (07:00→19:00)
[2018-08-03 08:00] VITALS: BP 152/86
--- NOTE | 2018-08-03 08:00 | NUR ---
NURSE NOTES: Received report from Renee HUYNH, pt a/a/o x4 laying in bed with no signs of distress or other issues at this time. surgical dressing dry and intact. Ileo in place draining well, per operations supervisor 2nd shift report total out put: 20ml. pt has right AJ triple lumen line running 1/2 NS+20MeQ@100ml/hr and CROP OR LIVESTOCK TENANT FARMER Dilaudid. pt able to ambulate to the BSC with staff assistance. pt's at bed side. call light within reach. bed in lowest position. side rales up x2. I will f/u as needed.
--- NOTE | 2018-08-03 09:09 | General Progress Note ---
Progress Note Progress Note AVSS Central line placed yesterday for IV access. She feels much better today for the first time Abdomen soft, flat, non-tender, healing nicely Urine 3750 voiding Kock pouch ileo 20 enteric WBC 5200 Hgb up 8.9 BUN 9 Cr 0.8 Mg up 1.7 still low Imp. Resolving ileus Plan: clear liquid diet Mg infusions f/u labs Nicanor Whalen MD August 03, 2018 09:09
[2018-08-03] MEDS: Metoprolol 25mg tab ORAL SCH ×2 (09:21→20:50)
[2018-08-03] MEDS: Lisinopril 2.5mg tab ORAL SCH (09:21)
[2018-08-03 12:00] VITALS: BP 156/86
[2018-08-03 16:00] VITALS: BP 166/96
--- NOTE | 2018-08-03 19:43 | NUR ---
NURSE NOTES: Patient in bed awake and oriented. VSS. No SOB noted. Dressings are clean and intact. Central line intact with dressings clean and dry. Flushed Ileo per MD's orders. No signs of distress noted Needs attended. Call light within reach. In stable condition.
--- NOTE | 2018-08-03 19:53 | NUR ---
HAND-OFF: Report given to Christian Ramachandran pt in stable condition. pt was able to ambulate around the unit x2 with the use of FWW since pt had unsteady gait. - RN endorsed to the incoming nurse that once pt is able to tolerate oral intake 800ml to reduce IV fluid to 50ml/hr. I&O's day shift Ileo: 125-80=45ml urine: 2,200ml total oral input: 500ml
[2018-08-03 20:00] VITALS: BP 166/88
[2018-08-03] MEDS: Dyna-Hex 2% Top Sol 2oz TOPIC SCH (20:00)
--- NOTE | 2018-08-03 21:30 | NUR ---
NURSE NOTES: Patient complaining of bilateral arms and legs edema. Per patient she feels like her hands and legs feel full. No visible signs of redness or any pain in all extremities. Elevated arms and legs. Called MD with orders noted and carried out. Will cont to monitor.
[2018-08-04] VITALS: BP 159/87
[2018-08-04 04:00] VITALS: BP 145/76
[2018-08-04 06:29] LABS: BASOPHILS % (AUTO) 1.1 % (0.0-2.0); HEMATOCRIT 25.7 % (37.0-47.0); HEMOGLOBIN 8.3 G/DL (12.0-16.0); LYMPHOCYTES % (AUTO) 20.3 % (20.0-45.0); MEAN CORPUSCULAR VOLUME 84 FL (80-99); MONOCYTES % (AUTO) 16.2 % (1.0-10.0); NEUTROPHILS % (AUTO) 55.4 % (45.0-75.0); PLATELET COUNT 216 K/UL (150-450); RED BLOOD COUNT 3.08 M/UL (4.20-5.40); RED CELL DISTRIBUTION WIDTH 17.5 % (11.6-14.8); WHITE BLOOD COUNT 4.8 K/UL (4.8-10.8)
[2018-08-04 06:54] LABS: ALANINE AMINOTRANSFERASE 11 U/L (12-78); ALBUMIN 2.4 G/DL (3.4-5.0); ALBUMIN/GLOBULIN RATIO 0.8 (1.0-2.7); ALKALINE PHOSPHATASE 50 U/L (46-116); ANION GAP 7 mmol/L (5-15); ASPARTATE AMINO TRANSFERASE 19 U/L (15-37); BILIRUBIN,TOTAL 0.5 MG/DL (0.2-1.0); BLOOD UREA NITROGEN 7 mg/dL (7-18); CALCIUM 8.6 MG/DL (8.5-10.1); CARBON DIOXIDE 27 MMOL/L (21-32); CHLORIDE 100 MMOL/L (98-107); CREATININE 0.8 MG/DL (0.55-1.30); POTASSIUM 3.8 MMOL/L (3.5-5.1); SODIUM 134 MMOL/L (136-145)
[2018-08-04] MEDS: PCA shift volume MISC SCH (07:14)
[2018-08-04 08:00] VITALS: BP 154/83
--- NOTE | 2018-08-04 08:00 | NUR ---
NURSE NOTES: Received report from Christian Ramachandran pt a/a/o x4 laying in bed complaining of abdominal cramping as well as vaginal pain described as itchiness and burning. RN assessed and no discharge noted nor smell. RN notified Dr. Whalen. AJ line in place and patent. ileo bad draining to gravity. during shift lab technician total ileo out put: 30ml. and total urine: 2000ml. CERTIFIED PROCEDURAL CODER in place. pt's at bedside. call light within reach. bed in lowest position. side rales up x2. I will f/u as needed.
[2018-08-04] MEDS: Metoprolol 25mg tab ORAL SCH ×2 (08:41→20:26)
[2018-08-04] MEDS: Lisinopril 2.5mg tab ORAL SCH (08:41)
[2018-08-04] MEDS ORDERED: LORazepam 1mg tab SL PRN (08:45)
--- NOTE | 2018-08-04 08:50 | General Progress Note ---
Progress Note Progress Note AVSS but BP elevated despite meds. Took 800cc po clear liquids yesterday but now with cramping and bloating and not much output from Kock pouch Abdomen mild soft distention, incision clean Urine 4200 Kock pouch ileo 75cc WBC 4800 Hgb 8.3 Mg 1.3 despite replacement Imp. R/O partial SBO post-op revision Kock pouch continent ileostomy High volume urine output and persistently low Mg despite replacement Hypertension despite meds Plan: Nephrology consultation Dr. Brody Paredes will see patient Kock pouch gastrograffin pouchogram with retrograde small bowel series Nicanor Whalen MD August 04, 2018 08:50
[2018-08-04 12:00] VITALS: BP 135/69
[2018-08-04 12:11] LABS: APPEARANCE,URINE CLEAR; BILIRUBIN, URINE NEGATIVE (NEGATIVE); COLOR,URINE PALE YELLOW; GLUCOSE, URINE (UA) NEGATIVE (NEGATIVE); KETONES,URINE NEGATIVE (NEGATIVE); LEUKOCYTE ESTERASE ,URINE NEGATIVE (NEGATIVE); NITRITE,URINE NEGATIVE (NEGATIVE); PH,URINE 6.5 (4.5-8.0); PROTEIN,URINE NEGATIVE (NEGATIVE); UROBILINOGEN,URINE NORMAL MG/DL (0.0-1.0)
--- NOTE | 2018-08-04 14:30 | NUR ---
NURSE NOTES: pt left the floor for abd Xray, with no signs of distress or other issues at this time. I will f/u as needed.
[2018-08-04] MEDS: PCA HYDROmorphone 30mg/30ml Syr IV PRN (15:39)
[2018-08-04 16:00] VITALS: BP 143/77
--- NOTE | 2018-08-04 16:03 | Diagnostic Imaging Report ---
Indication: Low output from a continent ileostomy pouch. COMPARISON: None FINDINGS: Due to the indwelling catheter, water-soluble contrast was allowed to flow via gravity. Multiple fluoroscopic images were then obtained. The position of the catheter within the pouch appears satisfactory. There is no extravasation of contrast material. Gradual filling of the pouch noted within the pelvis. With moderate filling after about 80 cc, the patient experienced pain necessitating stoppage of contrast. The pouch reservoir filled but there was no reflux of the contrast into distal small bowel. Did not proceed further given the patient's pain. Intermittent fluoroscopic observation during drainage of the contrast material from the pouch was unremarkable. IMPRESSION: Good positioning of the catheter within the ileostomy pouch which appeared unremarkable. Not able to demonstrate reflux into the distal small bowel due to pain.
--- NOTE | 2018-08-04 16:56 | Consultation ---
Consult Note Assessment/Plan Renal consult dictated # [id number] Brody Paredes MD August 04, 2018 16:56
[2018-08-04] MEDS: 1/2NS w/KCl 20mEq 1000ml 1,000 ML IV SCH (19:15)
--- NOTE | 2018-08-04 19:35 | NUR ---
HAND-OFF: Report given to Christian Ramachandran pt in stable condition. - pt was able to ambulate around the unit x1 with the use of FWW and staff assistance. I&O's ileo: 150-80= 70ml urine: 2350ml
[2018-08-04 20:00] VITALS: BP 135/76
[2018-08-04] MEDS: NovoLOG Insulin Flexpen SUBQ SCH (20:26)
[2018-08-04] MEDS: Dyna-Hex 2% Top Sol 2oz TOPIC SCH (20:26)
[2018-08-04] MEDS ORDERED: Ascorbic Acid 500mg tab ORAL ONE (21:00)
--- NOTE | 2018-08-04 22:49 | NUR ---
NURSE NOTES: Patient in bed awake and oriented. VSS. No SOB noted. Dressing is clean and dry. Ileo flushed. Central line dressing flushed with dressings clean and intact. 3/10 surgical pain noted. Reminded patient to use INSTRUMENT OPERATOR for increasing pain. Needs attended. Last dose of Magnesium given. Call light within reach. Family at bedside. In stable condition.
[2018-08-05] VITALS: BP 131/72
--- NOTE | 2018-08-05 | Consultation ---
DATE OF CONSULTATION: 08/03/2018 NEPHROLOGY CONSULTATION CONSULTING PHYSICIAN: Brody Paredes M.D. REFERRING PHYSICIAN: Nicanor Whalen M.D. REASON FOR CONSULTATION: History of chronic kidney disease and now with hypomagnesemia and hypertension. HISTORY OF PRESENT ILLNESS: This is a 68-year-old female with a history of Kock pouch continent ileostomy to evacuate stool and gas. The patient has history of ulcerative colitis. She underwent proctocolectomy in 1974 with creation of a Kock pouch continent ileostomy. She was admitted because of difficulty to insert the catheter. The patient also was complaining of nausea. I was asked kindly by Dr. Whalen to evaluate the patient because of history of CKD. The patient was told by a drug regulatory affairs specialist that she has stage IV CKD. Her serum creatinine has been 0.8 here in the hospital. The patient had a UA basically completely benign with no proteinuria. The patient had a UA on 07/25/2018, which did not show any protein, however, there was 20 to 30 wbc's. I will repeat that on 08/04/2018. It is completely benign. The patient has also had recurrent hypomagnesemia. She has lost some weight, but not significantly and her nutrition is adequate according to her. PAST MEDICAL HISTORY: History of hypertension, which she has had this for about a year. History of diabetes mellitus for about 5 years. No history of heart problems. No history of diabetic retinopathy. She does have history of cataract. MEDICATIONS: Reviewed in the EMR. ALLERGIES: Penicillin causing rash. The patient is intolerant to morphine. SOCIAL HISTORY: No history of smoking or alcohol abuse. REVIEW OF SYSTEMS: Noncontributory except what was mentioned. PHYSICAL EXAMINATION: GENERAL: The patient is a pleasant female, in no acute distress. VITAL SIGNS: Blood pressure 135/69, pulse 68, respiratory rate is 19, and temperature 97.3. HEENT: Somewhat pale conjunctivae. Anicteric sclerae. Neck is supple. LUNGS: Clear to auscultation. HEART: S1, S2 without murmurs or rubs. ABDOMEN: Soft. Somewhat distended. There are multiple scars. There is a in the left lower quadrant. EXTREMITIES: No cyanosis or edema. LABORATORY FINDINGS: The CBC shows WBC of 4800, hematocrit is 25.7, hemoglobin is 8.3, and platelets 216,000. Chemistry panel shows a serum sodium of 134, potassium 3.8, chloride 100, CO2 27, BUN is 7, and creatinine is 0.8. Mag is 1.3. ASSESSMENT: This is a 68-year-old female who was told that she has stage IV CKD. However, she has only serum creatinine of 0.8. Also, there was no evidence of proteinuria in the urine still she may have some CKD, but I doubt that this would be a stage IV. The patient has hypomagnesemia likely as a result of poor p.o. intake and finally she has hypertension, which is not very severe. PLAN: 1. I will replete the magnesium. 2. A 24-hour urine will be done to calculate the creatinine clearance. 3. I will follow the blood pressure and adjust the blood pressure medications as needed. Thank you very much, Dr. Whalen, for this consultation. Brody Paredes M.D. DR: MIREYA JOB#: [id number] CC: RAYMOND
[2018-08-05] MEDS: ALPRAZolam 0.5mg tab ORAL PRN ×2 (02:29→08:29)
[2018-08-05 04:00] VITALS: BP 132/68
[2018-08-05 05:47] LABS: HEMOGLOBIN 8.3 G/DL (12.0-16.0); LYMPHOCYTES % (AUTO) 24.5 % (20.0-45.0); MEAN CORPUSCULAR VOLUME 84 FL (80-99); MONOCYTES % (AUTO) 17.4 % (1.0-10.0); NEUTROPHILS % (AUTO) 50.1 % (45.0-75.0); PLATELET COUNT 232 K/UL (150-450); RED BLOOD COUNT 3.09 M/UL (4.20-5.40); RED CELL DISTRIBUTION WIDTH 18.2 % (11.6-14.8); WHITE BLOOD COUNT 4.8 K/UL (4.8-10.8)
[2018-08-05 06:06] LABS: ANION GAP 5 mmol/L (5-15); BLOOD UREA NITROGEN 5 mg/dL (7-18); CALCIUM 8.6 MG/DL (8.5-10.1); CARBON DIOXIDE 29 MMOL/L (21-32); CHLORIDE 101 MMOL/L (98-107); CREATININE 0.8 MG/DL (0.55-1.30); PHOSPHORUS 4.4 MG/DL (2.5-4.9); POTASSIUM 3.5 MMOL/L (3.5-5.1); SODIUM 135 MMOL/L (136-145)
[2018-08-05] MEDS: NovoLOG Insulin Flexpen SUBQ SCH ×4 (06:14→20:35)
--- NOTE | 2018-08-05 07:22 | NUR ---
HAND-OFF: Report given to Loreto HUYNH. Addendum: 08/05/18 at 1425 by WILDER MORALES RN RN HAND-OFF: Report given to Laine HUYNH.
--- NOTE | 2018-08-05 07:33 | NUR ---
NURSE NOTES: ASLEEP. NO C/O PAIN. IN NO DISTRESS.
[2018-08-05 08:00] VITALS: BP 144/77
[2018-08-05] MEDS: Metoprolol 25mg tab ORAL SCH ×2 (08:24→20:24)
[2018-08-05] MEDS: Lisinopril 2.5mg tab ORAL SCH (08:25)
[2018-08-05] MEDS ORDERED: Phytonadione 10 mg/mL 1ml amp SUBQ SCH (09:00)
[2018-08-05 11:57] VITALS: BP 144/73
--- NOTE | 2018-08-05 12:31 | Diagnostic Imaging Report ---
Indication: Abdominal pain, history of colectomy and continent ileostomy pouch, decreased output from pouch Technique: Spiral acquisitions obtained through the abdomen and pelvis. Patient ingested oral contrast. No IV contrast utilized, per referring physician request.. Multiplanar reconstructions were generated. Total dose length product 737.86 mGycm. CTDIvol(s) 15.23 mGy. Dose reduction achieved using automated exposure control Comparison: No comparison CTs. Reference made to the ileostomy pouch study from 08/04/2018 Findings: Patient is status post colectomy and ileostomy pouch placement. There is a lower abdominal pelvic midline incision below the umbilicus with skin shai. There is a catheter within the ileostomy pouch. Contrast is seen traversing the entirety of the small bowel, and there is more contrast within the pouch then there is on the post drain image following the pouchogram, so the contrast within the pouch is presumably from the contrast ingestion. There is a round high attenuation structure within the posterior pouch which measures 2.2 x 1.4 x 1.1 cm, appears to be discoid in shape.. Appearance and attenuation is suggestive of a corticated osseous structure but this is far from certain. There is mild infiltration of the pelvic fat inferior to the pouch. No small bowel distention, small bowel wall thickening demonstrated. A single bubble of gas is seen within or adjacent to the omental fat adjacent to the distal esophagus within the hiatal hernia. No other free or loculated intraperitoneal gas or fluid is evident. No significant incisional abnormality demonstrated. There is a moderate size sliding-type hiatal hernia noted. The remainder of the stomach is unremarkable. The duodenum is unremarkable. Lack of IV contrast limits assessment of the solid organs. The liver, gallbladder, bile ducts, pancreas, spleen, adrenals, kidneys are all unremarkable. The bladder is distended. The included lung bases demonstrate posterior atelectatic changes. There is a small pleural effusion on the right. There is a left hip arthroplasty prosthesis Impression: Postsurgical changes, as described. No definite unusual features Contrast, presumably ingested, is seen within the ileostomy pouch indicating absence of obstructive pathology. Catheter in good position Disc-shaped density within the pouch, of uncertain etiology/significance. Single bubble of gas within the supradiaphragmatic herniated omental fat, presumably related to the recent surgery. Moderate size hiatal hernia Findings were discussed by phone with Dr. Schiller The CT scanner at [facility] is accredited by the [employer] and the scans are performed using protocols designed to limit radiation exposure to as low as reasonably achievable to attain images of sufficient resolution adequate for diagnostic evaluation.
--- NOTE | 2018-08-05 14:24 | Nephrology Progress Note ---
Assessment/Plan Problem List: (1) Hypomagnesemia (2) CKD (chronic kidney disease) (3) HTN (hypertension) Plan Additional IV magnesium today Await 24-hour urine results Follow BMP magnesium Watch BP and no tight blood pressure control Subjective Subjective Patient complains of some pain at the site of central line and some abdominal pain Objective Objective Last 24 Hour Vital Signs Date Time Temp Pulse Resp B/P (MAP) Pulse Ox O2 Delivery O2 Flow Rate FiO2 08/05/18 12:00 15 08/05/18 11:57 99.0 63 15 144/73 (96) 98 08/05/18 09:13 Room Air 08/05/18 08:25 144/77 08/05/18 08:24 72 144/77 08/05/18 08:00 98.1 72 15 144/77 (99) 98 08/05/18 08:00 15 08/05/18 04:00 97.9 65 17 132/68 (89) 98 08/05/18 04:00 18 08/05/18 00:00 18 08/05/18 00:00 98.9 76 18 131/72 (91) 97 08/04/18 21:00 Room Air 08/04/18 20:26 73 143/77 08/04/18 20:00 98.8 71 17 135/76 (95) 97 08/04/18 20:00 18 08/04/18 16:15 18 08/04/18 16:09 97.3 08/04/18 16:00 18 08/04/18 16:00 98.1 73 20 143/77 (99) 99 Intake and Output 08/04/18 08/05/18 19:00 07:00 Intake Total 400 ml 950 ml Output Total 2420 ml 2210 ml Balance -2020 ml -1260 ml Intake Oral 350 ml IV Total 400 ml 600 ml Output Urine Total 2350 ml 2100 ml Other 70 ml 110 ml # Voids 7 4 Laboratory Tests 08/05/18 05:30: White Blood Count 4.8, Red Blood Count 3.09L, Hemoglobin 8.3L, Hematocrit 26.0L , Mean Corpuscular Volume 84, Mean Corpuscular Hemoglobin 26.8L, Mean Corpuscular Hemoglobin Concent 32.0, Red Cell Distribution Width 18.2H, Platelet Count 232, Mean Platelet Volume 6.5, Neutrophils (%) (Auto) 50.1, Lymphocytes (%) (Auto) 24.5, Monocytes (%) (Auto) 17.4H, Eosinophils (%) (Auto) 7.0H, Basophils (%) (Auto) 1.0, Sodium Level 135L, Potassium Level 3.5, Chloride Level 101, Carbon Dioxide Level 29, Anion Gap 5, Blood Urea Nitrogen 5L , Creatinine 0.8, Estimat Glomerular Filtration Rate > 60, Glucose Level 97, Calcium Level 8.6, Phosphorus Level 4.4, Magnesium Level 1.8 Height (Feet): 5 Height (Inches): 1.00 Weight (Pounds): 132 Cardiovascular: normal rate Respiratory/Chest: lungs clear Abdomen: soft Brody Paredes MD August 05, 2018 14:24
--- NOTE | 2018-08-05 14:29 | NUR ---
CASE MANAGEMENT:REVIEW 08/05/18 SI: POD #8 REVISION OF KOCK POUCH W/RELOCATION OF STOMA 99.0 63 15 144/73 98% ON RA H/H-8.3/26.0 IS: IV MAG SULFATE Q1HRS X3 BAGS IVF@50/HR OFFICE ADMINISTRATION DILAUDID LISINOPRIL PO QD LOPRESSOR PO Q12 : MED/SURG STATUS 3 EAST DCP: FROM HOME PLAN: 1;1 FEED...BCIR DIET
[2018-08-05] MEDS ORDERED: Rate Change PCA 1 Each MISC PRN (15:00)
[2018-08-05] MEDS: 1/2NS w/KCl 20mEq 1000ml 1,000 ML IV SCH (15:00)
--- NOTE | 2018-08-05 15:04 | NUR ---
RD ASSESSMENT & RECOMMENDATIONS SEE CARE ACTIVITY FOR COMPLETE ASSESSMENT DAILY ESTIMATED NEEDS: Needs based on S/p surgery 51kg adj 25-35 kcals/kg 4665-0022 total kcals 1-2 g protein/kg 51-102 g total protein 25-30 mL/kg 8318-8235 total fluid mLs NUTRITION DIAGNOSIS: Altered GI function r/t malfunctioning ileostomy as evidenced by pt w/ history of ulcerative colitis, s/p kock pouch revision, PPN now held d/t no vascular access, diet advanced from CLD to BCIR Low fiber/ Low residue now. CURRENT DIET:CLD-> BCIR PO DIET RECOMMENDATIONS: PER MD ADDITIONAL RECOMMENDATIONS: 1) Diet now advanced to BCIR, monitor tolerance 2) Weekly weights 3) Diet per MD -> Add ENSURE CLEAR TID W/ CLD
[2018-08-05] MEDS ORDERED: SUMAtriptan 50mg tab ORAL PRN (15:30)
--- NOTE | 2018-08-05 15:30 | General Progress Note ---
Progress Note Progress Note AVSS No further cramping but scant ileo output. CT scan abd+pelvis with oral contrast - no obstruction. concretion in pouch ( 2.2x1.4x4.1cm) Abdomen soft, non-tender, flat Urine 2450 BCIR ileo 180 past 24 hours - now 650cc after CT contrast Hgb stable 8.3 Phos 4.4 Mg 1.8 U/A negative Urine C&S 10-20,000 gram neg diego (prelim) Imp. Improved Plan: BCIR low residue diet d/c ORE GRADER and IV fluids additional dose of Venofer tonight (total 800mg infused during stay including tonight) Hopefully can start BCIR self-intubations in AM Nicanor Whalen MD August 05, 2018 15:30
[2018-08-05 16:00] VITALS: BP 139/79
[2018-08-05] MEDS ORDERED: Iron Sucrose 200 MG in NS 110 ML IV ONE (17:00)
[2018-08-05] MEDS ORDERED: PCA shift volume MISC SCH (19:00)
--- NOTE | 2018-08-05 19:00 | NUR ---
NURSE NOTES: QUIET IN BED. IN NO APPARENT DISTRESS.
[2018-08-05] MEDS: HYDROcodone/Acetamin 5/325 tab ORAL PRN (19:10)
--- NOTE | 2018-08-05 19:39 | NUR ---
HAND-OFF: Report given to Suly MOFFETT RN.
--- NOTE | 2018-08-05 19:40 | NUR ---
NURSE NOTES: Received report & pt from LINO Jang. Pt lying in bed, a&ox4, in room air, at bedside. No s/s of acute distress & c/o 6/10 pain. Will give PRN pain med when due. Ileo cath intact & draining to gravity. Surgical dressing C/D/I. Right IJ triple lumen intact. For 24hr urine clearance that will end @ 0400 08/06/18. Bed in lowest position, call light within reach. Will continue to monitor.
[2018-08-05 20:00] VITALS: BP 132/77
[2018-08-05] MEDS: Dyna-Hex 2% Top Sol 2oz TOPIC SCH (20:24)
[2018-08-05] MEDS ORDERED: Guaifenesin/DM 10ml syrup ORAL PRN (23:30)
--- NOTE | 2018-08-05 23:30 | NUR ---
NURSE NOTES: Noted pt with productive cough. Called Dr. Whalen & left msg requesting for PRN cough syrup. called with a new order. Carried out.
[2018-08-06] VITALS: BP 129/77
[2018-08-06] MEDS: HYDROcodone/Acetamin 5/325 tab ORAL PRN ×4 (00:05→21:12)
[2018-08-06 04:00] VITALS: BP 121/81
--- NOTE | 2018-08-06 04:03 | NUR ---
NURSE NOTES: 24hr urine collected & sent down to lab.
[2018-08-06] MEDS: NovoLOG Insulin Flexpen SUBQ SCH ×4 (06:04→20:15)
[2018-08-06 06:16] LABS: BASOPHILS % (AUTO) 1.2 % (0.0-2.0); EOSINOPHILS % (AUTO) 5.6 % (0.0-3.0); HEMATOCRIT 28.2 % (37.0-47.0); HEMOGLOBIN 9.1 G/DL (12.0-16.0); LYMPHOCYTES % (AUTO) 20.1 % (20.0-45.0); MEAN CORPUSCULAR VOLUME 84 FL (80-99); MONOCYTES % (AUTO) 13.6 % (1.0-10.0); NEUTROPHILS % (AUTO) 59.5 % (45.0-75.0); PLATELET COUNT 282 K/UL (150-450); RED BLOOD COUNT 3.36 M/UL (4.20-5.40); RED CELL DISTRIBUTION WIDTH 18.5 % (11.6-14.8); WHITE BLOOD COUNT 5.7 K/UL (4.8-10.8)
[2018-08-06 06:27] LABS: ANION GAP 9 mmol/L (5-15); BLOOD UREA NITROGEN 8 mg/dL (7-18); CALCIUM 8.9 MG/DL (8.5-10.1); CARBON DIOXIDE 28 MMOL/L (21-32); CHLORIDE 101 MMOL/L (98-107); CREATININE 0.7 MG/DL (0.55-1.30); POTASSIUM 3.9 MMOL/L (3.5-5.1); SODIUM 137 MMOL/L (136-145)
--- NOTE | 2018-08-06 07:12 | NUR ---
HAND-OFF: Report given to LINO Jang. Pt in stable condition. Rounds done.
--- NOTE | 2018-08-06 07:23 | NUR ---
NURSE NOTES: ASLEEP. IN NO APPARENT DISTRESS.
[2018-08-06 08:00] VITALS: BP 161/87
[2018-08-06] MEDS ORDERED: ALPRAZolam 0.5mg tab ORAL PRN (08:10)
--- NOTE | 2018-08-06 08:13 | General Progress Note ---
Progress Note Progress Note AVSS Had a cough last night, better this AM. Ate BCIR low residue diet 50% Abdomen soft, incision clean Urine 1950 Kock pouch ileo 1490 (includes CT scan contrast) [id number] Hgb up 9.1 Mg low 1.5 Imp. Improving slowly Plan: Start RN supervised Kock Pouch self-intubations: q3h am to hs and prn continue strict I&O Mg infusions again today f/u labs in AM If able to eat well and intubates without difficulty, anticipate discharge in 24-48 hours Nicanor Whalen MD August 06, 2018 08:13
[2018-08-06] MEDS ORDERED: Ascorbic Acid 500mg tab ORAL PRN (08:15)
[2018-08-06] MEDS: Metoprolol 25mg tab ORAL SCH ×2 (08:30→20:12)
[2018-08-06] MEDS: Lisinopril 2.5mg tab ORAL SCH (08:31)
--- NOTE | 2018-08-06 11:00 | NUR ---
NURSE NOTES: STARTED WITH SELF INTUBATION WITH NURSE SUPERVISION. USED ALCARAZ CATHETER OBTAINED 100CC OUTPUT. DID VERY WELL. AMBULATED OUT IN THE [place] WITH ASSIST TOLERATED.
--- NOTE | 2018-08-06 11:55 | Nephrology Progress Note ---
Assessment/Plan Problem List: (1) Hypomagnesemia (2) CKD (chronic kidney disease) (3) HTN (hypertension) Assessment The creatinine clearance is about 68 mL/min Plan Additional IV magnesium today Follow BMP magnesium Increase lisinopril to 10 mg twice daily p.o. Discussed case with Dr. Whalen Subjective Subjective Feels okay Objective Objective Last 24 Hour Vital Signs Date Time Temp Pulse Resp B/P (MAP) Pulse Ox O2 Delivery O2 Flow Rate FiO2 08/06/18 10:05 99.1 08/06/18 09:00 Room Air 08/06/18 08:31 161/87 08/06/18 08:30 81 161/87 08/06/18 08:00 99.1 81 18 161/87 (111) 96 08/06/18 04:00 97.4 62 16 121/81 (94) 96 08/06/18 00:00 98.2 63 15 129/77 (94) 94 08/05/18 21:00 Room Air 08/05/18 20:24 65 132/77 08/05/18 20:00 98.6 65 16 132/77 (95) 96 08/05/18 16:00 99.2 70 15 139/79 (99) 98 08/05/18 15:58 15 08/05/18 14:31 99.0 08/05/18 12:00 15 08/05/18 11:57 99.0 63 15 144/73 (96) 98 Intake and Output 08/05/18 08/06/18 19:00 07:00 Intake Total 1360 ml 340 ml Output Total 1845 ml 1595 ml Balance -485 ml -1255 ml Intake Oral 490 ml 340 ml IV Total 870 ml Output Urine Total 1100 ml 850 ml Other 745 ml 745 ml # Voids 4 2 Laboratory Tests 08/06/18 06:00: White Blood Count 5.7, Red Blood Count 3.36L, Hemoglobin 9.1L, Hematocrit 28.2L , Mean Corpuscular Volume 84, Mean Corpuscular Hemoglobin 27.0, Mean Corpuscular Hemoglobin Concent 32.2, Red Cell Distribution Width 18.5H, Platelet Count 282, Mean Platelet Volume 6.5, Neutrophils (%) (Auto) 59.5, Lymphocytes (%) (Auto) 20.1, Monocytes (%) (Auto) 13.6H, Eosinophils (%) (Auto) 5.6H, Basophils (%) (Auto) 1.2, Sodium Level 137, Potassium Level 3.9, Chloride Level 101, Carbon Dioxide Level 28, Anion Gap 9, Blood Urea Nitrogen 8, Creatinine 0.7, Estimat Glomerular Filtration Rate > 60, Glucose Level 101, Calcium Level 8.9, Magnesium Level 1.5L Height (Feet): 5 Height (Inches): 1.00 Weight (Pounds): 132 Cardiovascular: normal rate Respiratory/Chest: lungs clear Extremities: other - No edema Brody Paredes MD August 06, 2018 11:55
[2018-08-06 12:00] VITALS: BP 135/72
--- NOTE | 2018-08-06 14:25 | NUR ---
NURSE NOTES: ambulated out in the [place] with assit tolerated.
[2018-08-06 16:00] VITALS: BP 106/56
--- NOTE | 2018-08-06 17:00 | NUR ---
NURSE NOTES: SUPERVISED WITH INTUBATION OBTAINED 50CC THICK OUTPUT. VIT C 500MG GIVEN PO ORDERED. ENCOURAGED FLUIDS PO.
[2018-08-06] MEDS: Ascorbic Acid 500mg tab ORAL PRN ×2 (17:11→21:12)
[2018-08-06] MEDS: Lisinopril 10mg tab ORAL SCH (17:56)
--- NOTE | 2018-08-06 19:12 | NUR ---
NURSE NOTES: condition stable. in no distress.
--- NOTE | 2018-08-06 19:13 | NUR ---
HAND-OFF: Report given to Suly MOFFETT RN.
--- NOTE | 2018-08-06 19:14 | NUR ---
NURSE NOTES: Received report & pt from LINO Jang. Pt lying in bed, a&ox4, in room air, at bedside. No s/s of acute distress & c/o 3/10 pain. Right IJ triple lumen intact & S/L'd. RN Supervised self intubations scheduled @ 1999 & pt aware & verbalized understanding. Bed in lowest position, call light within reach. Will continue to monitor.
[2018-08-06 19:53] VITALS: BP 141/68
[2018-08-06] MEDS: Dyna-Hex 2% Top Sol 2oz TOPIC SCH (20:12)
[2018-08-07] VITALS: BP 120/68
[2018-08-07 04:00] VITALS: BP 125/70
--- NOTE | 2018-08-07 05:55 | NUR ---
NURSE NOTES: Pt's central line x3 ports not drawing any blood for lab. Called lab. Lab will send up assistant professor of surgery shortly to draw blood peripherally.
[2018-08-07 06:25] LABS: BASOPHILS % (AUTO) 0.9 % (0.0-2.0); HEMATOCRIT 33.2 % (37.0-47.0); HEMOGLOBIN 10.3 G/DL (12.0-16.0); LYMPHOCYTES % (AUTO) 22.9 % (20.0-45.0); MEAN CORPUSCULAR VOLUME 85 FL (80-99); MONOCYTES % (AUTO) 12.5 % (1.0-10.0); NEUTROPHILS % (AUTO) 56.7 % (45.0-75.0); PLATELET COUNT 342 K/UL (150-450); RED CELL DISTRIBUTION WIDTH 18.5 % (11.6-14.8); WHITE BLOOD COUNT 5.8 K/UL (4.8-10.8)
[2018-08-07] MEDS: NovoLOG Insulin Flexpen SUBQ SCH ×4 (06:30→21:00)
[2018-08-07 06:45] LABS: ANION GAP 8 mmol/L (5-15); BLOOD UREA NITROGEN 7 mg/dL (7-18); CALCIUM 9.7 MG/DL (8.5-10.1); CARBON DIOXIDE 27 MMOL/L (21-32); CHLORIDE 101 MMOL/L (98-107); CREATININE 0.9 MG/DL (0.55-1.30); POTASSIUM 3.9 MMOL/L (3.5-5.1); SODIUM 136 MMOL/L (136-145)
--- NOTE | 2018-08-07 07:24 | NUR ---
HAND-OFF: Report given to LINO Ricketts. Pt in stable condition. Rounds done. Called & left msg to Dr. Whalen regarding Magnesium result. AM RN aware.
--- NOTE | 2018-08-07 07:28 | NUR ---
NURSE NOTES: Received report from LINO Duran. Rounding done with outgoing nurse. Patient asleep. is at bedside. No fluid running at this time. Bed in lowest position, call light within reach. Will continue to monitor.
[2018-08-07 08:00] VITALS: BP 157/92
[2018-08-07] MEDS: Magnesium Sulfate 1gm/100ml IVPB SCH ×4 (08:09→12:32)
[2018-08-07] MEDS: Metoprolol 25mg tab ORAL SCH ×2 (08:32→21:23)
[2018-08-07] MEDS: HYDROcodone/Acetamin 5/325 tab ORAL PRN ×2 (08:32→18:51)
[2018-08-07] MEDS: Lisinopril 10mg tab ORAL SCH (08:32)
--- NOTE | 2018-08-07 11:07 | NUR ---
CASE MANAGEMENT:REVIEW 08/07/18 SI: POD #10 REVISION OF KOCK POUCH W/RELOCATION OF STOMA 98.6 73 16 157/92 96% ON RA H/H-10.3/33.2 MAG-1.6 IS: IV MAG SULFATE Q1HRS X4BAGS LISINOPRIL PO QD LOPRESSOR PO Q12 : MED/SURG STATUS 3 EAST DCP: FROM HOME
[2018-08-07 12:00] VITALS: BP 144/68
--- NOTE | 2018-08-07 12:08 | Nephrology Progress Note ---
Assessment/Plan Problem List: (1) Hypomagnesemia (2) CKD (chronic kidney disease) (3) HTN (hypertension) Assessment The creatinine clearance is about 68 mL/min Plan Additional IV magnesium today Follow magnesium Increase lisinopril to 20 mg twice daily p.o. Discussed case with RN Subjective Subjective Feels okay Objective Objective Last 24 Hour Vital Signs Date Time Temp Pulse Resp B/P (MAP) Pulse Ox O2 Delivery O2 Flow Rate FiO2 08/07/18 09:00 Room Air 08/07/18 08:32 157/92 08/07/18 08:32 73 157/92 08/07/18 08:00 98.6 73 16 157/92 (113) 96 08/07/18 04:00 98.1 63 16 125/70 (88) 94 08/07/18 00:00 96.8 58 16 120/68 (85) 93 08/06/18 21:00 Room Air 08/06/18 20:12 69 141/68 08/06/18 19:53 98.5 69 17 141/68 (92) 97 08/06/18 17:56 121/70 08/06/18 16:40 97.8 08/06/18 16:00 98.0 66 18 106/56 (73) 99 Intake and Output 08/06/18 08/07/18 19:00 07:00 Intake Total 1620 ml 840 ml Output Total 1000 ml 1775 ml Balance 620 ml -935 ml Intake Oral 1020 ml 840 ml IV Total 600 ml Output Urine Total 800 ml 1600 ml Other 200 ml 175 ml # Voids 4 Laboratory Tests 08/07/18 06:12: White Blood Count 5.8, Red Blood Count 3.90L, Hemoglobin 10.3L, Hematocrit 33.2L , Mean Corpuscular Volume 85, Mean Corpuscular Hemoglobin 26.5L, Mean Corpuscular Hemoglobin Concent 31.1L, Red Cell Distribution Width 18.5H, Platelet Count 342, Mean Platelet Volume 6.1L, Neutrophils (%) (Auto) 56.7, Lymphocytes (%) (Auto) 22.9, Monocytes (%) (Auto) 12.5H, Eosinophils (%) (Auto) 7.0H, Basophils (%) (Auto) 0.9, Sodium Level 136, Potassium Level 3.9, Chloride Level 101, Carbon Dioxide Level 27, Anion Gap 8, Blood Urea Nitrogen 7, Creatinine 0.9, Estimat Glomerular Filtration Rate > 60, Glucose Level 96, Calcium Level 9.7, Magnesium Level 1.6L Height (Feet): 5 Height (Inches): 1.00 Weight (Pounds): 132 Cardiovascular: normal rate Respiratory/Chest: lungs clear Abdomen: soft, distended Brody Paredes MD August 07, 2018 12:08
--- NOTE | 2018-08-07 12:40 | NUR ---
NURSE NOTES: Patient ambulates hallway x1 with RN assistance. Patient is stable.
--- NOTE | 2018-08-07 15:38 | General Progress Note ---
Progress Note Progress Note AVSS Eating 40% of meals with good fluid intake. Intubating her Kock Pouch without difficulty using 30Fr Medena catheter Abdomen mildly distended - she needs to intubate and feels full she states [place] removed and steristrips applied - nicely healed Urine 2500 Kock pouch ileo 375 (taking Vitamin C to loosen her thick effluent WBC 5800 Hgb up 10.3 Mg 1.6 Imp. Improving Plan; Continue RN supervised Kock pouch self-intubations and strict I&O Supplement Magnesium IV again Add Glucerna supplements 2 daily f/u labs in AM Nicanor Whalen MD August 07, 2018 15:38
[2018-08-07 16:00] VITALS: BP 132/65
[2018-08-07] MEDS: Lisinopril 20mg tab ORAL SCH (17:21)
--- NOTE | 2018-08-07 19:35 | NUR ---
NURSE NOTES: Report taken from LINO Klein. patient is awake and in bed, at bedside. A&Ox4, possible D/C in the am. No signs of distress on room air. Minor complaints of abdominal pain central to surgical incision, 06/17. Surgical site c/d/i open to air, Ileo dressing clean and intact. Patient is self-intubating PRN, assess and measure. No further skin issues. Central line c/d/i no fluids running. Bed in lowest position, call light within reach.
--- NOTE | 2018-08-07 19:42 | NUR ---
HAND-OFF: Report given to LINO Whiting. Patient is stable.
[2018-08-07 20:00] VITALS: BP 138/79
[2018-08-07] MEDS: Dyna-Hex 2% Top Sol 2oz TOPIC SCH (20:00)
[2018-08-08] VITALS: BP 123/70
[2018-08-08] MEDS: HYDROcodone/Acetamin 5/325 tab ORAL PRN ×3 (00:12→11:34)
[2018-08-08] MEDS: Ascorbic Acid 500mg tab ORAL PRN (00:35)
[2018-08-08 04:00] VITALS: BP 121/82
[2018-08-08 05:46] LABS: BASOPHILS % (AUTO) 1.4 % (0.0-2.0); HEMATOCRIT 31.8 % (37.0-47.0); LYMPHOCYTES % (AUTO) 27.5 % (20.0-45.0); MEAN CORPUSCULAR VOLUME 86 FL (80-99); MONOCYTES % (AUTO) 10.5 % (1.0-10.0); NEUTROPHILS % (AUTO) 53.6 % (45.0-75.0); PLATELET COUNT 318 K/UL (150-450); RED BLOOD COUNT 3.68 M/UL (4.20-5.40)
[2018-08-08 06:11] LABS: ANION GAP 10 mmol/L (5-15); BLOOD UREA NITROGEN 8 mg/dL (7-18); CALCIUM 9.4 MG/DL (8.5-10.1); CARBON DIOXIDE 26 MMOL/L (21-32); CHLORIDE 103 MMOL/L (98-107); CREATININE 0.9 MG/DL (0.55-1.30); POTASSIUM 3.7 MMOL/L (3.5-5.1); SODIUM 139 MMOL/L (136-145)
[2018-08-08] MEDS: NovoLOG Insulin Flexpen SUBQ SCH ×2 (06:15→12:19)
--- NOTE | 2018-08-08 07:32 | NUR ---
HAND-OFF: Report given to LINO Dexter. Patient is awake and in bed. Possible D/C today, VS stable. .
--- NOTE | 2018-08-08 07:35 | NUR ---
NURSE NOTES: Patient lying in bed awake. No complain of pain or distress at this time. Skin intact and dry. Surgical dressing intact and dry. IV dressing intact and dry. Bed lowest position. Call light within reach. Will continue to monitor.
[2018-08-08 08:00] VITALS: BP 132/75
--- NOTE | 2018-08-08 08:00 | NUR ---
NURSE NOTES: Spoke to regarding morning lab and new order received. Order read back and carried out.
[2018-08-08] MEDS: Lisinopril 20mg tab ORAL SCH (08:33)
[2018-08-08] MEDS: Metoprolol 25mg tab ORAL SCH (08:33)
[2018-08-08] MEDS ORDERED: D5 1/2NS 1000ml IV ONE (09:48)
[2018-08-08] MEDS ORDERED: Tubing IV Secondary IV ONE (09:48)
--- NOTE | 2018-08-08 10:35 | General Progress Note ---
Progress Note Progress Note AVSS. Intubating well. Eating fair 50% Had heartburn with Glucerna Abdomen soft, not distended, well healed Urine 1500 Kock pouch ileo 675 - less thick with Vitamin C Hgb 10 Na 139 K 3.7 BUN 10 Cr 0.9 Mg 1.4 Imp. Improved Plan: Magnesium infusions IV then remove central line and discharge home Full supplies/instructions/limitations provided/discussed Rx S[facility] Ambien - continue pre-admission meds Magnesium oxide po per Dr. Paredes's instructions to patient F/U 08/13 and prn Nicanor Whalen MD Aug 08, 2018 10:35
[2018-08-08 12:00] VITALS: BP 139/70
[2018-08-08] MEDS ORDERED: HYDROCODON-ACE1 EA15 ORAL (14:42)
[2018-08-08] MEDS ORDERED: ZOFRAN4 M1 ORAL (14:43)
[2018-08-08] MEDS ORDERED: TEMAZEPAM7.5 MG ORAL (14:44)
[2018-08-08] MEDS ORDERED: ZOLPIDEM TARTRAT5 MG ORAL (15:12)
--- NOTE | 2018-08-08 15:40 | NUR ---
NURSE NOTES: Patient discharged with family member in stable condition. Discharge instruction given to patient and verbalized understanding. Belonging and medications given to patient. Instructed not to take any other sleeping medication except prescribed Ambien and verbalized understanding. IV and ID removed. Brought down to private car by wheelchair.
--- NOTE | 2018-08-10 14:44 | Discharge Summary ---
Discharge Summary Hospital Course Date of Admission July 25, 2018 at 12:12 Date of Discharge Aug 08, 2018 at 15:40 Admitting Diagnosis malfunctioning Kock Pouch continent ileostomy Reason for Hospitalization: elective surgery HPI Lissett Lara is a 68 year old female who was admitted on July 25, 2018 at 12: 12 for malfunctioning Kock Pouch continent ileostomy Patient presented to ED with severe difficulty intubating her Kock Pouch continent ileostomy to evacuate stool, inability to eat and nausea . Consultations Dr Valentín Paredes-IM/nephro Procedures s/p 07/28/[address] Whalen Laparotomy and revision of Kock pouch access segment angulation s/p 07/27/[address] Whalen Hospital Course 07/25 Patient presented to ED with severe difficulty intubating her Kock pouch continent ileostomy to evacuate stool, inability to eat and nausea. Labs reveal elevated BUN and Creatinine (28/03.4 Patient started on the IV fluids and diabetic clear liquid as tolerated 26 Parker was inserted into [place] pouch and was kept to gravity drainage with every 3 hours flush with 20 cc of normal saline Pending Kock pouch endoscopy and possible surgery 07/26 tolerated clear liquids Kock pouch catheter came out , but RN was able to insert new one intake and output were closely monitored, labs were followed anemia noted with ferritin patient started on IV Venofer renal parameters better after hydration: BUN 14 , creatinine 1.2 albumin low 3.2 07/27 tolerated clear liquids antiemetic provided as needed for some nausea PICC line placement status post Kock pouch endoscopy which revealed a redundant and angulated access segment , measuring 10 to 11 cm from the stoma orifice to the tip of the valve. Pouch otherwise appeared normal 07/28 status post surgery pain management with GPS FIELD DATA COLLECTOR Dilaudid urine clear, vital signs stable , abdomen soft and dressing dry Kock pouch with effluent in drainage bag patient kept n.p.o. except oral medication and ice chips Venofer continued TPN deferred since PICC line tip was in subclavian vein, not superior vena cava 07/29 pain management with Dilaudid GPS FIELD DATA COLLECTOR continued, basal infusion increased patient comfortable , pain controlled ambulated in hallways chest clear , abdomen soft, slight distention , incision clean intake and output closely monitored n.p.o. status continued patient started on peripheral parenteral nutrition since PICC line in subclavian vein Venofer and IV antibiotic continued Parker catheter continued due to pelvic dissection labs followed 07/30 complained of intermittent nausea ambulated in hallways abdomen soft and mildly distended, incision clean intake and output closely monitored no enteric output from Kock pouch ileostomy, catheter repositioned, patient continued with NPO status, PPN, Venofer, IV antibiotic and Parker catheter magnesium and phosphorus replaced ( magnesium 1.3 , phosphorus 2.3) 07/31 ambulated in hallways abdomen more distended, incision clean intake and output closely monitored Kock pouch ileostomy only returned normal saline irrigation hemoglobin down to 8.2 phosphorus and magnesium still low IV fluids wrist rate decreased patient received 1 dose of Lasix IV magnesium and phosphorus replaced further n.p.o. status continued Parker continued follow-up with the labs Kock pouch catheter was removed and new 28-gauge Parker was inserted with no resistance , but still no enteric output continue every 3 hours flushing with 20 cc normal saline 08/01 intermittent abdominal incisional pain , cramps abdomen with mild distention , soft , incision clean intake and output closely monitored, no leukocytosis hemoglobin stable magnesium still low n.p.o. status continued along with Parker catheter, PPN , magnesium further replaced basal infusion of GPS FIELD DATA COLLECTOR was discontinued. antibiotics; Flagyl discontinued, and Levaquin continued 08/02 left arm became swollen and cold Venous duplex study negative for DVT normal blood pressure in both arms , radial pulse present subsequently rigth arm became warm , but still mild edema ? possible infiltration from PICC line infused fluids PICC line removed central line started abdominal is mild distention diffusely tender soft incision clean pouch with ileostomy Kock pouch ileostomy with enteric fluid draining , continuous drainage of Kock pouch 08/03 patient felt better intake and output closely monitored ileus resolving patient started on clear liquid diet magnesium up to 1.7 but still low ; magnesium infusion provided 08/04 blood pressure elevated despite medication intake and output closely monitored tolerated clear liquid day prior , but complained of cramping and bloating output from Kock pouch decreased magnesium still low despite replacement nephrology consult requested Kock pouch Gastrografin pouchogram with retrograde small bowel series ordered pouchogram was not helpful drainage improved, no cramps clear liquid diet resumed as tolerated livestock handler seen and evaluated patient was told to have stage IV chronic kidney disease, however creatinine only 0.8 and no evidence of proteinuria in the urine livestock handler doubted that she had a chronic kidney disease stage IV hypomagnesemia was likely result of poor oral intake magnesium was repleted 24 hours urine started to calculate creatinine clearance blood pressure medications were optimized to keep blood pressure under control 08/05 no further cramping scant ileostomy output CT scan of abdomen and pelvis with oral contrast revealed no obstruction intake and output monitored, patient was improving urine culture revealed only 10-20K gram-negative rods magnesium up to 1.8 , hemoglobin stable patient started on BCIR low residue diet GPS FIELD DATA COLLECTOR discontinued IV fluids discontinued additional dose of Venofer provided 08/06 tolerated BCIR low residue diet 50% slowly improving started on RN supervised Kock pouch self intubation every 3 hours to HS and as needed strict intake and output continue magnesium low again -1.5 , magnesium infusion provided blood pressure still not controlled MAURIZIO inhibitor dose was increased as per livestock handler 08/07 lisinopril further increased creatinine clearance 68 mL/min RN supervised Kock pouch self intubation continued strict intake and output magnesium further replaced patient started on Glucerna supplements 08/08 patient improved intubated Kock pouch ileostomy well oral intake fair, more than 50% hemoglobin 10 electrolytes stable magnesium still 1.4 magnesium infusion given prior to discontinuation of central line central line discontinued discharge instruction provided supplies,/instruction/limitation provided/discussed prescription for [place], Zofran , Ambien provided continue preadmission medication magnesium oxide provided upon discharge as per livestock handler instructions follow-up in clinic with surgeon on 08/13 FINAL DIAGNOSES 1. Malfunctioning Kock pouch continent ileostomy with inability to catheterize to evacuate stool. 2. History of ulcerative colitis. 3. STATUS POST MULTIPLE ABDOMINAL OPERATIONS: - Proctocolectomy and Kock pouch in 1974. - Revision of Kock pouch with relocation of stoma to the left lower quadrant in 1994. - Total abdominal hysterectomy and bilateral salpingo-oophorectomy in May,. 4. Hypertension. 5. Diabetes. 6. Chronic pain syndrome of perineum, pelvis, and vaginal, phantom rectum. 7. Sarcoidosis of lungs in remission. 8. s/p 07/27 Kock pouch endoscopy 9. s/p 07/28 laparotomy and revision of Kock pouch access segment angulation 10. Moderate protein calorie malnutrition 11. Dehydration-resolved 12. Functional small bowel partial obstruction due to inability to evacuate Kock pouch with difficulty inserting the drainage catheter-resolved 13. Anemia due to iron deficiency 14. Ileus -resolved 15. Persistent hypomagnesemia Discharge Medications Continued Medications: Duloxetine (Cymbalta) 20 Mg Capsule.dr 20 MG ORAL DAILY, CAP (This prescription has been renewed) Famotidine (Famotidine) 20 Mg Tablet 20 MG ORAL DAILY, #30 TAB 0 Refills (This prescription has been renewed) Fenofibrate Nanocrystallized (Fenofibrate) 145 Mg Tablet 145 MG ORAL DAILY, #30 TAB 0 Refills (This prescription has been renewed) Hydrocodone/Acetaminophen 5-325* (Hydrocodone/Acetaminophen 5-325*) 1 Each Tablet 1 TAB ORAL Q4H PRN for For Pain, #40 TAB 0 Refills (This prescription has been renewed) Lisinopril (Lisinopril*) 5 Mg Tablet 5 MG ORAL DAILY, TAB (This prescription has been renewed) Metformin Hcl (Glucophage) 1,000 Mg Tablet 500 MG ORAL DAILY, TAB (This prescription has been renewed) Metoprolol Tartrate* (Metoprolol Tartrate*) 25 Mg Tablet 25 MG ORAL EVERY 12 HOURS, TAB (This prescription has been renewed) Omeprazole (Omeprazole) 20 Mg Tablet.dr 20 MG ORAL DAILY, TAB (This prescription has been renewed) Ondansetron (Zofran) 4 Mg Tablet 4 MG ORAL Q6H PRN for Nausea & Vomiting, #40 TAB (This prescription has been renewed) Rizatriptan Benzoate (Rizatriptan) 10 Mg Tablet 10 MG PO, TAB (This prescription has been renewed) Tramadol Hcl (Tramadol Hcl) 100 Mg Tab.er.24h 50 MG ORAL TID, TAB (This prescription has been renewed) Zolpidem Tartrate* (Zolpidem Tartrate*) 5 Mg Tablet 5 MG ORAL BEDTIME PRN for Sleep, #30 TAB 0 Refills (This prescription has been renewed) Discharge Condition Upon Discharge: stable Discharge Disposition Patient was discharged home. Discharge Instructions Discharge Instructions Special Instructions I have been assigned to complete a D/C Summary on this account. I was not involved in the patient management Sabra Gil NP Aug 10, 2018 14:43
== END 2018-08-08 15:40 | disposition home or self-care (01) | DRG 330 ==
LOC: EDBEDREQ 11:59 → EMR 12:02 → 3E 12:12
PROC: 0DJD8ZZ Inspection of Lower Intestinal Tract, Via Natural or Artificial Opening Endoscopic (ICD-10-PCS; principal; 2018-07-27 12:42)
PROC: 0DSB0ZZ Reposition Ileum, Open Approach (ICD-10-PCS; 2018-07-28)
PROC: 0DNW0ZZ Release Peritoneum, Open Approach (ICD-10-PCS; 2018-07-28)
PROC: 05HM33Z Insertion of Infusion Device into Right Internal Jugular Vein, Percutaneous Approach (ICD-10-PCS; 2018-08-02)
PROC: B543ZZA Ultrasonography of Right Jugular Veins, Guidance (ICD-10-PCS; 2018-08-02)
DX: K94.13 Enterostomy malfunction (principal); K56.690 Other partial intestinal obstruction; N39.0 Urinary tract infection, site not specified; E44.0 Moderate protein-calorie malnutrition; N18.4 Chronic kidney disease, stage 4 (severe); K56.7 Ileus, unspecified; D86.0 Sarcoidosis of lung; I12.9 Hypertensive chronic kidney disease with stage 1 through stage 4 chronic kidney disease, or unspecified chronic kidney disease; E11.22 Type 2 diabetes mellitus with diabetic chronic kidney disease; E83.42 Hypomagnesemia; R62.7 Adult failure to thrive; Z68.24 Body mass index [BMI] 24.0-24.9, adult; E86.0 Dehydration; D50.9 Iron deficiency anemia, unspecified; G89.4 Chronic pain syndrome
CPT/HCPCS: 36415; 36569; 71045; 74018; 74176; 74270; 76937; 80048; 80053; 81001; 81003; 81050; 82570; 82607; 82728; 82746; 82962; 83540; 83550; 83690; 83735; 84100; 84156; 85025; 85610; 85730; 86850; 86870; 86900; 86901; 86904; 86920; 87086; 87181; 93005; 93971; 94003; 94150; 96361; 96374; 96375; 99285; J1815; J2250; J2405; J2710; J2765

== ENCOUNTER 2019-09-12 14:04 | Inpatient (IN) | payer MEDICARE, OTHER ==
[~2019-09-12] VITALS: Ht 154.9 cm; Wt 63.5 kg
[~2019-09-12 14:04] MED LIST: CYMBALTA20 MG ORAL; FAMOTIDINE20 MG ORAL; FENOFIBRATE145 M1 ORAL; GLUCOPHAGE1000 MG ORAL; HYDROCODON-ACE1 EA15 ORAL; LISINOPRIL5 MG ORAL; METOPROLOL TART25 MG ORAL; OMEPRAZOLE20 M3 ORAL; RIZATRIPTAN10 MG PO; TEMAZEPAM7.5 MG ORAL; TRAMADOL HCL100 M2 ORAL; ZOFRAN4 M1 ORAL; ZOLPIDEM TARTRAT5 MG ORAL
[2019-09-12 14:20] VITALS: BP 128/76
[2019-09-12] MEDS ORDERED: BELSOMRA15 MG PO (14:30)
[2019-09-12] MEDS ORDERED: XANAX0.25 MG ORAL (14:30)
[2019-09-12] MEDS ORDERED: DEXILANT60 MG ORAL (14:30)
[2019-09-12] MEDS ORDERED: LANTUS SOL100 UNIT/1 SUBQ (14:30)
[2019-09-12] MEDS ORDERED: NOVOLOG100 UNITS1 SUBQ (14:30)
--- NOTE | 2019-09-12 14:48 | Emergency Room Report ---
History of Present Illness General Chief Complaint: General Complaint Source: Patient Present Illness HPI The patient presents with problems with their [place] continent ileostomy pouch. She has had difficulty intubating the pouch for 2 weeks. The tube that she has been using sometimes has difficulty entering and then gets stuck on occasion. She denies any pain in her abdomen. She denies fevers or chills. She saw her doctor but her doctor felt that he could not help her with this problem. This last happened 2 years ago. She had to have a pouch revision at that time. The patient suffers from chronic pain which is controlled with hydrocodone. She last took a dose at 1230. She denies significant pain at this time. No sore throat, chest pain, palpitations, nausea, vomiting, diarrhea, dysuria, abdominal pain, shortness of breath, rashes, depression, anxiety, visual changes , dizziness, headache. Allergies: Coded Allergies: MORPHINE (Verified Allergy, Unknown, 07/25/18) PENICILLINS (Verified Allergy, Unknown, 07/27/18) COVID-19 Screening Contact w/high risk pt: No Recent Travel to affected area: No Experienced COVID-19 symptoms?: No COVID-19 Testing performed ACADEMIC DEPARTMENT CHAIR: No Patient History Past Medical History: see triage record Past Surgical History: hysterectomy, other - CIR pouch, L hip surgery Social History: Denies: smoking Social History Narrative from Ronaldo ALEJANDRE Reviewed Nursing Documentation: PMH: Agreed; PSxH: Agreed Nursing Documentation-PMH Hx Hypertension: Yes Hx Diabetes: Yes Hx Cancer: No Hx Gastrointestinal Problems: Yes - GERD, [place] puch Hx Neurological Problems: No Review of Systems All Other Systems: negative except mentioned in HPI Physical Exam Vital Signs Date Time Temp Pulse Resp B/P (MAP) Pulse Ox O2 Delivery O2 Flow Rate FiO2 09/12/19 14:13 98.4 64 15 128/76 (93) 96 Room Air Sp02 EP Interpretation: reviewed, normal General Appearance: well appearing, no apparent distress, GCS 15, non-toxic Head: normocephalic, atraumatic Eyes: bilateral eye normal inspection, bilateral eye PERRL, bilateral eye EOMI ENT: moist mucus membranes Neck: supple Respiratory: lungs clear, normal breath sounds Cardiovascular #1: regular rate, rhythm Cardiovascular #2: 2+ radial (R) Gastrointestinal: normal inspection, normal bowel sounds, non tender, non- distended, other - [place] pouch, slight fullness above this and possible mass, freely mobile Genitourinary: no CVA tenderness Musculoskeletal: back normal, normal range of motion, gait/station normal Neurologic: alert, oriented x3, grossly normal Psychiatric: mood/affect normal Skin: no rash, warm/dry Medical Decision Making Diagnostic Impression: Primary Impression: Stenosis of continent ileal conduit stoma ER Course Patient presents with having difficulty intubating her continent ileostomy pouch. Differential includes stenosis, obstruction, infection amongst others. Evaluation with labs here. As she most likely will need an operation chest x- ray is performed also. Patient declines pain medication at this time. An IV is started with hydration. Labs unremarkable. Chest x-ray clear. EKG no injury. Patient remained stable through the emergency room visit and evaluation. Patient was discussed with Dr. Whalen. Patient admitted to the hospital for further evaluation and treatment. Laboratory Tests Test 09/12/19 14:35 09/12/19 16:29 09/12/19 21:40 09/12/19 23:20 White Blood Count 6.9 K/UL (4.8-10.8) Red Blood Count 4.42 M/UL (4.20-5.40) Hemoglobin 13.6 G/DL (12.0-16.0) Hematocrit 42.8 % (37.0-47.0) Mean Corpuscular Volume 97 FL (80-99) Mean Corpuscular Hemoglobin 30.7 PG (27.0-31.0) Mean Corpuscular Hemoglobin Concent 31.7 G/DL (32.0-36.0) L Red Cell Distribution Width 11.8 % (11.6-14.8) Platelet Count 307 K/UL (150-450) Mean Platelet Volume 7.6 FL (6.5-10.1) Neutrophils (%) (Auto) 50.5 % (45.0-75.0) Lymphocytes (%) (Auto) 35.6 % (20.0-45.0) Monocytes (%) (Auto) 7.7 % (1.0-10.0) Eosinophils (%) (Auto) 4.6 % (0.0-3.0) H Basophils (%) (Auto) 1.7 % (0.0-2.0) Prothrombin Time 11.0 SEC (9.30-11.50) Prothrombin Time INR 1.0 (0.9-1.1) Activated Partial Thromboplast Time 24 SEC (23-33) Urine Color Pale yellow Pale yellow Urine Appearance Clear Clear Urine pH 5 (4.5-8.0) 5 (4.5-8.0) Urine Specific [place] 1.010 (1.005-1.035) 1.010 (1.005-1.035) Urine Protein Negative (NEGATIVE) Negative (NEGATIVE) Urine Glucose (UA) Negative (NEGATIVE) Negative (NEGATIVE) Urine Ketones Negative (NEGATIVE) Negative (NEGATIVE) Urine Blood Negative (NEGATIVE) Negative (NEGATIVE) Urine Nitrite Negative (NEGATIVE) Negative (NEGATIVE) Urine Bilirubin Negative (NEGATIVE) Negative (NEGATIVE) Urine Urobilinogen Normal MG/DL (0.0-1.0) Normal MG/DL (0.0-1.0) Urine Leukocyte Esterase Negative (NEGATIVE) 1+ (NEGATIVE) H Sodium Level 135 MMOL/L (136-145) L Potassium Level 4.1 MMOL/L (3.5-5.1) Chloride Level 101 MMOL/L (98-107) Carbon Dioxide Level 25 MMOL/L (21-32) Anion Gap 9 mmol/L (5-15) Blood Urea Nitrogen 37 mg/dL (7-18) H Creatinine 1.5 MG/DL (0.55-1.30) H Estimated Glomerular Filtration Rate 34.4 mL/min (>60) Glucose Level 85 MG/DL (74-106) Calcium Level 9.8 MG/DL (8.5-10.1) Total Bilirubin 0.4 MG/DL (0.2-1.0) Aspartate Amino Transferase (AST) 21 U/L (15-37) Alanine Aminotransferase (ALT) 18 U/L (12-78) Alkaline Phosphatase 45 U/L (46-116) L Total Protein 7.7 G/DL (6.4-8.2) Albumin 4.2 G/DL (3.4-5.0) Globulin 3.5 g/dL Albumin/Globulin Ratio 1.2 (1.0-2.7) Lipase 138 U/L (73-393) POC Whole Blood Glucose 66 MG/DL (74-106) L 95 MG/DL (74-106) Urine RBC 0-2 /HPF (0 - 2) Urine WBC 5-10 /HPF (0 - 2) H Urine Squamous Epithelial Cells Few /LPF (NONE/OCC) Urine Bacteria Few /HPF (NONE) Chest X-Ray Diagnostic Results Chest X-Ray Diagnostic Results : Chest X-Ray Ordered: Yes # of Views/Limited/Complete: 1 View Indication: Other EP Interpretation: Yes Interpretation: no consolidation, no effusion, no pneumothorax Impression: No acute disease Electronically Signed by: Electronically signed by Damir Landa MD Last Vital Signs Date Time Temp Pulse Resp B/P (MAP) Pulse Ox O2 Delivery O2 Flow Rate FiO2 09/12/19 21:00 Room Air 09/12/19 20:29 59 115/61 09/12/19 20:00 98.6 18 95 Status: unchanged Disposition: ADMITTED INPATIENT Condition: Serious Damir Landa MD Sep 12, 2019 14:48
[2019-09-12 14:52] LABS: APPEARANCE,URINE CLEAR; BASOPHILS % (AUTO) 1.7 % (0.0-2.0); BILIRUBIN, URINE NEGATIVE (NEGATIVE); COLOR,URINE PALE YELLOW; EOSINOPHILS % (AUTO) 4.6 % (0.0-3.0); GLUCOSE, URINE (UA) NEGATIVE (NEGATIVE); HEMATOCRIT 42.8 % (37.0-47.0); HEMOGLOBIN 13.6 G/DL (12.0-16.0); KETONES,URINE NEGATIVE (NEGATIVE); LEUKOCYTE ESTERASE ,URINE NEGATIVE (NEGATIVE); LYMPHOCYTES % (AUTO) 35.6 % (20.0-45.0); MEAN CORPUSCULAR VOLUME 97 FL (80-99); MONOCYTES % (AUTO) 7.7 % (1.0-10.0); NEUTROPHILS % (AUTO) 50.5 % (45.0-75.0); NITRITE,URINE NEGATIVE (NEGATIVE); PH,URINE 5 (4.5-8.0); PLATELET COUNT 307 K/UL (150-450); PROTEIN,URINE NEGATIVE (NEGATIVE); RED BLOOD COUNT 4.42 M/UL (4.20-5.40); RED CELL DISTRIBUTION WIDTH 11.8 % (11.6-14.8); UROBILINOGEN,URINE NORMAL MG/DL (0.0-1.0); WHITE BLOOD COUNT 6.9 K/UL (4.8-10.8)
--- NOTE | 2019-09-12 15:03 | Diagnostic Imaging Report ---
EXAM: XR Chest, 1 View CLINICAL HISTORY: ABD PAIN TECHNIQUE: Frontal view of the chest. COMPARISON: 08/02/18. FINDINGS: Lungs: Unremarkable. No consolidation. Pleural space: Unremarkable. No pneumothorax. Heart: Enlarged cardiac silhouette is again noted. Mediastinum: Unremarkable. Bones/joints: Slight thoracic levocurvature. IMPRESSION: Redemonstrated enlargement of the cardiac silhouette. No overt edema.
[2019-09-12 15:06] LABS: ALANINE AMINOTRANSFERASE 18 U/L (12-78); ALBUMIN 4.2 G/DL (3.4-5.0); ALBUMIN/GLOBULIN RATIO 1.2 (1.0-2.7); ALKALINE PHOSPHATASE 45 U/L (46-116); ANION GAP 9 mmol/L (5-15); ASPARTATE AMINO TRANSFERASE 21 U/L (15-37); BILIRUBIN,TOTAL 0.4 MG/DL (0.2-1.0); CALCIUM 9.8 MG/DL (8.5-10.1); CARBON DIOXIDE 25 MMOL/L (21-32); CHLORIDE 101 MMOL/L (98-107); CREATININE 1.5 MG/DL (0.55-1.30); POTASSIUM 4.1 MMOL/L (3.5-5.1); SODIUM 135 MMOL/L (136-145)
[2019-09-12 15:19] LABS: BLOOD UREA NITROGEN 37 mg/dL (7-18)
[2019-09-12] MEDS ORDERED: RIZATRIPTAN 10 MG ORAL PRN ×2 (17:45→19:15)
[2019-09-12] MEDS ORDERED: ALPRAZolam 0.25mg tab ORAL PRN (18:15)
[2019-09-12] MEDS: D5 1/2NS w/KCl 20mEq 1,000 ML IV SCH (19:01)
[2019-09-12] MEDS ORDERED: DEXLANSOPRAZOLE 60 MG ORAL SCH (19:15)
[2019-09-12 20:00] VITALS: BP 115/61
[2019-09-12] MEDS: HYDROcodone/Acetamin 10/325 tab ORAL PRN (20:20)
[2019-09-12] MEDS: Metoprolol Tartrate 12.5mg TAB ORAL SCH (20:29)
[2019-09-12] MEDS: Lisinopril 10mg tab ORAL SCH (20:36)
[2019-09-12 22:01] LABS: APPEARANCE,URINE CLEAR; BILIRUBIN, URINE NEGATIVE (NEGATIVE); COLOR,URINE PALE YELLOW; GLUCOSE, URINE (UA) NEGATIVE (NEGATIVE); KETONES,URINE NEGATIVE (NEGATIVE); LEUKOCYTE ESTERASE ,URINE 1+ (NEGATIVE); NITRITE,URINE NEGATIVE (NEGATIVE); PH,URINE 5 (4.5-8.0); PROTEIN,URINE NEGATIVE (NEGATIVE); UROBILINOGEN,URINE NORMAL MG/DL (0.0-1.0)
[2019-09-12] MEDS: Zolpidem 5mg tab ORAL PRN (23:16)
[2019-09-13] VITALS: BP 110/63
[2019-09-13] MEDS: D5 1/2NS w/KCl 20mEq 1,000 ML IV SCH ×3 (06:48→22:43)
[2019-09-13 07:05] LABS: BASOPHILS % (AUTO) 0.9 % (0.0-2.0); EOSINOPHILS % (AUTO) 7.9 % (0.0-3.0); HEMATOCRIT 38.1 % (37.0-47.0); HEMOGLOBIN 12.1 G/DL (12.0-16.0); LYMPHOCYTES % (AUTO) 39.8 % (20.0-45.0); MEAN CORPUSCULAR VOLUME 97 FL (80-99); MONOCYTES % (AUTO) 10.9 % (1.0-10.0); NEUTROPHILS % (AUTO) 40.6 % (45.0-75.0); PLATELET COUNT 223 K/UL (150-450); RED BLOOD COUNT 3.93 M/UL (4.20-5.40); RED CELL DISTRIBUTION WIDTH 11.9 % (11.6-14.8); WHITE BLOOD COUNT 4.3 K/UL (4.8-10.8)
[2019-09-13 07:18] LABS: ANION GAP 10 mmol/L (5-15); BLOOD UREA NITROGEN 26 mg/dL (7-18); CALCIUM 8.8 MG/DL (8.5-10.1); CARBON DIOXIDE 26 MMOL/L (21-32); CHLORIDE 105 MMOL/L (98-107); CREATININE 1.3 MG/DL (0.55-1.30); POTASSIUM 3.9 MMOL/L (3.5-5.1); SODIUM 141 MMOL/L (136-145)
[2019-09-13 07:21] LABS: ALANINE AMINOTRANSFERASE 17 U/L (12-78); ALBUMIN 3.5 G/DL (3.4-5.0); ALBUMIN/GLOBULIN RATIO 1.2 (1.0-2.7); ALKALINE PHOSPHATASE 34 U/L (46-116); ASPARTATE AMINO TRANSFERASE 22 U/L (15-37); BILIRUBIN,TOTAL 0.3 MG/DL (0.2-1.0)
[2019-09-13 07:40] LABS: INR 1.1 (0.9-1.1)
[2019-09-13 07:51] LABS: % IRON SATURATION 25 % (15-50); IRON 102 ug/dL (50-175); TOTAL IRON BINDING CAPACITY 404 ug/dL (250-450)
[2019-09-13 07:56] LABS: FERRITIN 325 NG/ML (8-388)
[2019-09-13 08:00] VITALS: BP 110/83
[2019-09-13] MEDS: Metoprolol Tartrate 12.5mg TAB ORAL SCH ×2 (08:16→20:50)
[2019-09-13] MEDS: Lisinopril 10mg tab ORAL SCH ×2 (08:17→08:51)
[2019-09-13] MEDS: HYDROcodone/Acetamin 10/325 tab ORAL PRN ×2 (08:18→15:46)
--- NOTE | 2019-09-13 08:18 | General Progress Note ---
Progress Note Progress Note H&P dictated. Admitted because of severe difficulty with her Kock Pouch continent ileostomy withdrawal of her intubation catheter to evacuate stool Abdomen soft with indwelling catheter in stoma LLQ Dehydration by labs is improvedd this AM BUN 37 now 26 Cr 1.5 now 1.3 CBC ok iron,ferritin,b12,folic acid ok albumin 3.5 Imp: malfunctioning Kock Pouch with severe difficulty removing her drainage catheter, and some difficulty intubating Plan; IV fluids Kock pouch endoscopy today Nicanor Whalen MD Sep 13, 2019 08:18
[2019-09-13] MEDS ORDERED: Lisinopril 10mg tab ORAL SCH (09:00)
--- NOTE | 2019-09-13 09:29 | Pre-op HX & Phy Repo 2 SIG ---
DATE OF ADMISSION: 09/12/2019 EMERGENCY ADMISSION HISTORY AND PHYSICAL The patient is admitted from the emergency room late afternoon, Thursday, September 12, 2019. HISTORY OF PRESENT ILLNESS: The patient is a 69-year-old female in overall stable health with a malfunctioning Kock pouch with severe difficulty with drawing her intubation catheter that she uses to evacuate stool and gas several times a day. The patient has a past history of ulcerative colitis and has undergone proctocolectomy with Kock pouch with revisions, all will be listed at the end of this dictation. Most recently, she underwent surgery in 07/28/2018 with revision of her Kock pouch stoma and access segment angulation involving laparotomy. She had been doing well since that surgery until recently she had difficulty removing her catheter. She was advised to follow instructions that if the catheter catches or snags on withdrawal, she re-inserts it back into the pouch and then rotates the catheter and then removes it, but yet she continues to have difficulty as well as some difficulty inserting her catheter at times. She is not having any incontinence. In view of the severe risk of traumatizing the access segment with bleeding or perforation, I advised her to come to the emergency room. PAST MEDICAL HISTORY AND MEDICATIONS: Lisinopril and metoprolol for hypertension, hydrocodone for spine and left leg pain, duloxetine, Dexilant for reflux, TriCor, metformin daily, insulin as needed based on her blood sugars, and Maxalt p.r.n. migraine headaches. ALLERGIES: Penicillin causes rash. Morphine causes side effects. She avoids nonsteroidal anti-inflammatories including Toradol because of mild chronic renal insufficiency. REVIEW OF SYSTEMS: The patient states that ever since she underwent hysterectomy in 2015, she has perineal and pelvic and vaginal and phantom rectum pain, which has persisted and is constant. She has received epidural blocks and Botox injections. In April 2018, she underwent ORIF of her left elbow fracture following a fall. PHYSICAL EXAMINATION: GENERAL: A well developed, well nourished, 5 feet 1 inches, approximately 130 pounds. HEENT: Within normal limits. LUNGS: Clear. HEART: Regular rhythm. BREASTS: Without masses. ABDOMEN: Soft and not distended. There is a long midline scar and the old left paramedian scar, transverse scar in right lower quadrant. The stoma of the Kock pouch is small and low in the left lower quadrant. PELVIC: Status post hysterectomy. RECTAL: Status post proctectomy. EXTREMITIES: Without edema. Pulses 2+ femoral to pedal bilaterally. NEUROLOGIC: Physiologic. ADDITIONAL INFORMATION: Laboratory studies showed BUN elevated 37, creatinine 1.5. IMPRESSION: 1. Malfunctioning Kock pouch continent ileostomy with severe difficulty with intubation and especially withdrawal of her intubation catheter. 2. History of ulcerative colitis. 3. STATUS POST MULTIPLE ABDOMINAL OPERATIONS: 3.1. Proctocolectomy and Kock pouch in 1974. 3.2. Revision of Kock pouch with relocation of stoma to the left lower quadrant in 1994. 3.3. Total abdominal hysterectomy and bilateral salpingo-oophorectomy in 2015. 3.4. Laparotomy with revision of Kock pouch access segment angulation, 07/28/2018. PLAN: The patient will be admitted and will have intravenous fluids and clear liquid diet until morning as she will be undergoing pouch endoscopy. An indwelling 28-[place] Parker catheter will be inserted by the nursing staff into her Kock pouch and connected to continuous gravity drainage with flushing every 3 hours with normal saline. Following the endoscopy, we will determine whether surgical procedure is required. Nicanor Whalen M.D. DR: RIYA JOB#: [id number] CC: RAYMOND
[2019-09-13 12:00] VITALS: BP 116/65
--- NOTE | 2019-09-13 12:51 | Pre-Procedure Note/Attestation ---
Pre-Procedure Note/Attestation Complete Prior to Procedure Planned Procedure: not applicable Procedure Narrative: Kock pouch endoscopy Indications for Procedure Pre-Operative Diagnosis: Malfunctioning Kock Pouch Attestation I attest that I discussed the nature of the procedure; its benefits; risks and complications; and alternatives (and the risks and benefits of such alternatives ), prior to the procedure, with the patient (or the patient's legal promotions representative). I attest that, if there was a reasonable possibility of needing a blood transfusion, the patient (or the patient's legal promotions representative) was given the [facility] standardized written summary, pursuant to the [place] Blood Safety Act ([place] Health and Safety Code # 1645, as amended). I attest that I re-evaluated the patient just prior to the surgery and that there has been no change in the patient's H&P, except as documented below: none Nicanor Whalen MD Sep 13, 2019 12:51
--- NOTE | 2019-09-13 13:15 | Brief Operative Note ---
Immediate Post Operative Note Operative Note Pre-op Diagnosis: Malfunctioning Kock Pouch Procedure: Kock pouch endoscopy Post-op Diagnosis: same Post-op Diagnosis: same as pre-op plus - angulation of access segment at 3cm deep to stoma Findings: consistent w/pre-op dx studies Surgeon: zaynab Anesthesia: other - none Specimen: none Complications: none Condition: stable Fluids: none Estimated Blood Loss: none Drains: other - 28 Parker to Kock pouch Implant(s) used?: No Nicanor Whalen MD Sep 13, 2019 13:15
[2019-09-13] MEDS ORDERED: Heparin1,000 units/500ml Premix(Conc:2 units/ml) IV PRN (13:17)
[2019-09-13] MEDS ORDERED: Lidocaine 1% Plain 30 ml INJ PRN (13:17)
--- NOTE | 2019-09-13 15:28 | Pre-Procedure Note/Attestation ---
Pre-Procedure Note/Attestation Complete Prior to Procedure Planned Procedure: not applicable Procedure Narrative: PICC Indications for Procedure Pre-Operative Diagnosis: Needs [facility] central IV access Attestation I attest that I discussed the nature of the procedure; its benefits; risks and complications; and alternatives (and the risks and benefits of such alternatives ), prior to the procedure, with the patient (or the patient's legal new accounts banking representative). I attest that, if there was a reasonable possibility of needing a blood transfusion, the patient (or the patient's legal new accounts banking representative) was given the [facility] standardized written summary, pursuant to the [place] Blood Safety Act ([place] Health and Safety Code # 1645, as amended). I attest that I re-evaluated the patient just prior to the surgery and that there has been no change in the patient's H&P, except as documented below: Khanh Maza MD Sep 13, 2019 15:28
--- NOTE | 2019-09-13 15:29 | Brief Operative Note ---
Immediate Post Operative Note Operative Note Pre-op Diagnosis: Needs oysterman central IV access Procedure: PICC R arm Post-op Diagnosis: same as pre-op Surgeon: Romulo Lopez Anesthesia: local Specimen: none Complications: none Fluids: none Implant(s) used?: No Khanh Lopez MD Sep 13, 2019 15:29
[2019-09-13 16:00] VITALS: BP 115/68
[2019-09-13] MEDS: NovoLOG Insulin Flexpen SUBQ SCH ×2 (16:30→20:49)
--- NOTE | 2019-09-13 16:59 | Procedure Note ---
DATE OF PROCEDURE: 09/13/2019 ENDOSCOPY PROCEDURE REPORT ENDOSCOPIST: Nicanor Whalen MD. ANESTHESIA: None. SEDATION: None. PRE-ENDOSCOPY DIAGNOSES: 1. 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 2. History of ulcerative colitis. 3. STATUS POST MULTIPLE ABDOMINAL OPERATIONS: 3.1. Proctocolectomy and Kock pouch in 1974. 3.2. Revision of Kock pouch with relocation of stoma to the left lower quadrant in 1994. 3.3. Total abdominal hysterectomy and bilateral salpingo-oophorectomy in May 2015. 3.4. Laparotomy with revision of Kock pouch access segment angulation, 07/28/2018. POST-ENDOSCOPY DIAGNOSES: 1. 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 2. History of ulcerative colitis. 3. STATUS POST MULTIPLE ABDOMINAL OPERATIONS: 3.1. Proctocolectomy and Kock pouch in 1974. 3.2. Revision of Kock pouch with relocation of stoma to the left lower quadrant in 1994. 3.3. Total abdominal hysterectomy and bilateral salpingo-oophorectomy in May 2015. 3.4. Laparotomy with revision of Kock pouch access segment angulation, 07/28/2018. ENDOSCOPY PERFORMED: Kock pouch continent ileostomy pouch endoscopy. FINDINGS: A significant angulation of the access segment at approximately 3 cm deep to the mucocutaneous junction. The stoma itself is quite small. The pouch mucosa was normal with a well-formed nipple valve. DESCRIPTION OF PROCEDURE: The patient was positioned supine in the GI lab without any anesthesia or sedation given or required. Using a GIF-P140 endoscope, the stoma in the right lower quadrant was entered after removing the indwelling Parker catheter placed when the patient was admitted yesterday. The access segment angulations were negotiated. The distance to the tip of the nipple valve was approximately 10 cm, slightly redundant. The pouch was distensible with normal mucosa. Retroflexed views revealed a circumferentially well-formed nipple valve. Withdrawal views confirmed the above findings including the superficial angulation within the abdominal wall. The patient will benefit from a revision of her Kock pouch stoma in depth. She tolerated the endoscopy well and after removing the endoscope, I inserted a 28-Japanese Parker catheter back to the pouch to continuous gravity drainage. Nicanor Whalen M.D. DR: RIYA JOB#: [id number] CC:
--- NOTE | 2019-09-13 17:54 | Diagnostic Imaging Report ---
Indications: Needs long-term IV access Technique: Ultrasound confirms patent compressible left basilic vein. Total sterile technique, including sterile probe cover and sterile gel, hat, mask, sterile gown, large sterile drape, and preparation with 2% chlorhexidine utilized. Local anesthesia with 1% lidocaine. Under real-time ultrasound guidance, puncture left brachial vein using 21-gauge needle, documented and archived, passage 0.018 guidewire under direct fluoroscopy, which would not advance beyond the axilla. 4 Turkmen peel-away sheath was inserted, followed by introduction of a Kumpe catheter. Attempts made at passing a guidewire centrally, unsuccessful. A limited central venogram was then performed, demonstrating complete occlusion of the left innominate vein. Right arm then sterilely prepped and draped, as detailed in the above description. Ultrasound demonstrated patent compressible right brachial vein. Puncture right brachial vein using 21-gauge needle, passage 0.018 guidewire under direct fluoroscopy. 4 Turkmen Bard dual-lumen power PICC cut to 41 cm. It was inserted through the peel-away sheath, but would not pass centrally. A 4 Turkmen Kumpe catheter was inserted, would also not pass centrally. A hydrophilic guidewire was inserted. It took a different course and was able to easily pass centrally. The PICC was then successfully inserted. Peel-away sheath and guidewire removed. Catheter fixed to the skin. Both catheter ports aspirated and flushed. Patient tolerated procedure well, without immediate complication. Digital radiograph documents satisfactory catheter tip position, at the cavoatrial junction. Total fluoroscopy time 244 seconds. Total dose area product [id number] Total number of images: 2 Impression: Successful placement of right arm PICC under sonographic and fluoroscopic guidance, as described above. 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
[2019-09-13] MEDS ORDERED: NS Irrig 1000ml ONE (19:03)
[2019-09-13] MEDS ORDERED: Sterile Water Irrig 1000ml IRRIG ONE (19:03)
[2019-09-13 20:00] VITALS: BP 127/71
[2019-09-13] MEDS: Dyna-Hex 2% Top Sol 2oz TOPIC SCH (20:47)
[2019-09-13] MEDS: DEXLANSOPRAZOLE 60 MG ORAL SCH (20:49)
[2019-09-13] MEDS: Zolpidem 5mg tab ORAL PRN (22:35)
[2019-09-14] VITALS: BP 119/70
[2019-09-14] MEDS: HYDROcodone/Acetamin 10/325 tab ORAL PRN ×3 (01:53→19:58)
[2019-09-14] MEDS: D5 1/2NS w/KCl 20mEq 1,000 ML IV SCH ×2 (01:55→22:32)
[2019-09-14 04:00] VITALS: BP 137/78
[2019-09-14 05:49] LABS: EOSINOPHILS % (AUTO) 5.7 % (0.0-3.0); HEMATOCRIT 36.8 % (37.0-47.0); HEMOGLOBIN 11.7 G/DL (12.0-16.0); LYMPHOCYTES % (AUTO) 35.4 % (20.0-45.0); MEAN CORPUSCULAR VOLUME 96 FL (80-99); MONOCYTES % (AUTO) 8.7 % (1.0-10.0); NEUTROPHILS % (AUTO) 49.2 % (45.0-75.0); PLATELET COUNT 216 K/UL (150-450); RED BLOOD COUNT 3.83 M/UL (4.20-5.40); RED CELL DISTRIBUTION WIDTH 11.8 % (11.6-14.8); WHITE BLOOD COUNT 4.5 K/UL (4.8-10.8)
[2019-09-14] MEDS: NovoLOG Insulin Flexpen SUBQ SCH ×4 (06:01→21:00)
[2019-09-14 06:11] LABS: ALANINE AMINOTRANSFERASE 16 U/L (12-78); ALBUMIN 3.7 G/DL (3.4-5.0); ALBUMIN/GLOBULIN RATIO 1.3 (1.0-2.7); ALKALINE PHOSPHATASE 40 U/L (46-116); ANION GAP 8 mmol/L (5-15); ASPARTATE AMINO TRANSFERASE 20 U/L (15-37); BILIRUBIN,TOTAL 0.3 MG/DL (0.2-1.0); BLOOD UREA NITROGEN 13 mg/dL (7-18); CALCIUM 8.5 MG/DL (8.5-10.1); CARBON DIOXIDE 27 MMOL/L (21-32); CHLORIDE 103 MMOL/L (98-107); CREATININE 1.2 MG/DL (0.55-1.30); SODIUM 138 MMOL/L (136-145)
[2019-09-14 08:00] VITALS: BP 151/83
[2019-09-14] MEDS: Metoprolol Tartrate 12.5mg TAB ORAL SCH ×2 (09:23→20:59)
[2019-09-14] MEDS: Lisinopril 10mg tab ORAL SCH (09:23)
[2019-09-14] MEDS: Neomycin Sulfate 500mg Tab ORAL SCH ×3 (11:41→19:56)
[2019-09-14 12:00] VITALS: BP 126/74
--- NOTE | 2019-09-14 14:04 | Anethesia Preoperative Eval ---
Anesthesia Pre-op PMH/ROS General Date of Evaluation: Sep 14, 2019 Time of Evaluation: 14:00 Anesthesiologist: Vero ASA Score: ASA 3 Mallampati Score Class I : Soft palate, uvula, fauces, pillars visible Class II: Soft palate, uvula, fauces visible Class III: Soft palate, base of uvula visible Class IV: Only hard plate visible Mallampati Classification: Class II Surgeon: Koby Diagnosis: Malfunctioning continent pouch stoma Surgical Procedure: Revision of pouch stoma Anesthesia History: PONV Family History: no anesthesia problems Allergies: Coded Allergies: MORPHINE (Verified Allergy, Unknown, 07/25/18) PENICILLINS (Verified Allergy, Unknown, 07/27/18) Medications: see eMAR Patient NPO?: Yes Past Medical History Cardiovascular: Reports: HTN - stable on meds; Denies: CAD, PA, valve dz, arrhythmia, other Pulmonary: Denies: asthma, COPD, ZEV, other Gastrointestinal/Genitourinary: Reports: GERD, CRI, other - h/o UC s/p totalcolectomy; Denies: ESRD Neurologic/Psychiatric: Reports: depression/anxiety; Denies: dementia, CVA, TIA, other Endocrine: Reports: DM - stable on meds; Denies: hypothyroidism, steroids, other HEENT: Denies: cataract (L), cataract (R), glaucoma, COWLITZ (L), COWLITZ (R), other Hematology/Immune: Reports: anemia - mild; Denies: DVT, bleeding disorder, other Musculoskeletal/Integumentary: Denies: OA, RA, DJD, DDD, edema, other PMH Narrative: as above PSxH Narrative: multiple abdominal Sx see H&P Anesthesia Pre-op Phys. Exam Physician Exam Last Vital Signs Date Time Temp Pulse Resp B/P (MAP) Pulse Ox O2 Delivery O2 Flow Rate FiO2 09/14/19 12:15 98.5 09/14/19 12:00 57 19 126/74 (91) 100 09/14/19 09:00 Room Air Constitutional: NAD Neurologic: CN 2-12 intact Cardiovascular: RRR, no M/R/G Respiratory: CTA Gastrointestinal: S/NT/ND Airway Exam Mallampati Score: Class II MO: limited Neck: short ROM: limited Teeth: intact Dentures: no upper, no lower Anesthesia Pre-op A/P Labs Hematology Test 09/14/19 04:55 White Blood Count 4.5 K/UL (4.8-10.8) L Red Blood Count 3.83 M/UL (4.20-5.40) L Hemoglobin 11.7 G/DL (12.0-16.0) L Hematocrit 36.8 % (37.0-47.0) L Mean Corpuscular Volume 96 FL (80-99) Mean Corpuscular Hemoglobin 30.7 PG (27.0-31.0) Mean Corpuscular Hemoglobin Concent 31.9 G/DL (32.0-36.0) L Red Cell Distribution Width 11.8 % (11.6-14.8) Platelet Count 216 K/UL (150-450) Mean Platelet Volume 7.4 FL (6.5-10.1) Neutrophils (%) (Auto) 49.2 % (45.0-75.0) Lymphocytes (%) (Auto) 35.4 % (20.0-45.0) Monocytes (%) (Auto) 8.7 % (1.0-10.0) Eosinophils (%) (Auto) 5.7 % (0.0-3.0) H Basophils (%) (Auto) 1.0 % (0.0-2.0) Chemistry Test 09/13/19 15:48 09/13/19 20:46 09/14/19 04:55 09/14/19 06:01 POC Whole Blood Glucose Pending 106 MG/DL (74-106) 89 MG/DL (74-106) Sodium Level 138 MMOL/L (136-145) Potassium Level 4.0 MMOL/L (3.5-5.1) Chloride Level 103 MMOL/L (98-107) Carbon Dioxide Level 27 MMOL/L (21-32) Anion Gap 8 mmol/L (5-15) Blood Urea Nitrogen 13 mg/dL (7-18) Creatinine 1.2 MG/DL (0.55-1.30) Estimat Glomerular Filtration Rate 44.5 mL/min (>60) Glucose Level 109 MG/DL (74-106) H Calcium Level 8.5 MG/DL (8.5-10.1) Total Bilirubin 0.3 MG/DL (0.2-1.0) Aspartate Amino Transf (AST/SGOT) 20 U/L (15-37) Alanine Aminotransferase (ALT/SGPT) 16 U/L (12-78) Alkaline Phosphatase 40 U/L (46-116) L Total Protein 6.6 G/DL (6.4-8.2) Albumin 3.7 G/DL (3.4-5.0) Globulin 2.9 g/dL Albumin/Globulin Ratio 1.3 (1.0-2.7) Test 09/14/19 11:40 POC Whole Blood Glucose 98 MG/DL (74-106) Studies Pre-op Studies: EKG - SR Risk Assessment & Plan Assessment: ASA 3 Plan: GA with LMA Status Change Before Surgery: No Pre-Antibiotics Drug: as scheduled Ander Pham MD Sep 14, 2019 14:04
--- NOTE | 2019-09-14 14:31 | General Progress Note ---
Progress Note Progress Note AVSS Doing well on bowel prep for revision of Kock pouch stoma in depth in AM Abdomen soft, indwelling catheter in place LLQ stoma draining well small amount , stoma is stenotic WBC 4500 Hgb 11.7 BUN 13 Cr 1.2 after hydration Iron, ferritin, B12 okay folic acid low 7.6 Imp: Malfunctioning Kock Pouch with intubation and catheter withdrawal difficulty due to angulated access segment and stenotic stoma Plan; Revision of Kock Pouch stoma in depth Full discussion with patient re the procedure, indications, options and risks ( infection, bleeding, persistent or recurrent difficulties with intubation or other aspects of Kock pouch function, etc. She understands and agrees to proceed. Nicanor Whalen MD Sep 14, 2019 14:31
[2019-09-14] MEDS ORDERED: Ascorbic Acid 500mg tab ORAL PRN (15:00)
[2019-09-14 16:00] VITALS: BP 154/81
[2019-09-14] MEDS ORDERED: D5NS 1000ml IV ONE (17:41)
[2019-09-14] MEDS ORDERED: D5 1/2NS 1000ml IV ONE (17:41)
[2019-09-14] MEDS ORDERED: NS 500ML ONE (17:41)
[2019-09-14] MEDS: Dyna-Hex 2% Top Sol 2oz TOPIC SCH (19:58)
[2019-09-14 20:00] VITALS: BP 121/72
[2019-09-14] MEDS: Zolpidem 5mg tab ORAL PRN (20:59)
[2019-09-14] MEDS: DEXLANSOPRAZOLE 60 MG ORAL SCH (21:02)
[2019-09-15] VITALS (16 sets, daily range): BP systolic 89–130; BP diastolic 50–69
[2019-09-15] MEDS: NovoLOG Insulin Flexpen SUBQ SCH ×4 (06:30→20:24)
[2019-09-15] MEDS: HYDROcodone/Acetamin 10/325 tab ORAL PRN ×4 (06:42→22:10)
[2019-09-15] MEDS ORDERED: NS Irrig 1000ml ONE (07:00)
[2019-09-15] MEDS ORDERED: Bacitracin 50000 Units Vial ONE (07:00)
[2019-09-15] MEDS ORDERED: LR 1000ml ONE (07:00)
[2019-09-15] MEDS ORDERED: Sterile Water Irrig 1000ml IRRIG ONE (07:00)
[2019-09-15] MEDS ORDERED: NeoSporin Gu Irrig 1ml Amp IRRIG ONE (07:00)
[2019-09-15] MEDS ORDERED: fentaNYL 100 mcg/2 mL IV ONE (07:03)
[2019-09-15] MEDS ORDERED: Lidocaine 1% MPF 10mg/ml 5ml ONE (07:04)
[2019-09-15] MEDS ORDERED: NS Irrig 1000ml IRRIG ONE ×2 (07:11→07:40)
--- NOTE | 2019-09-15 07:21 | Pre-Procedure Note/Attestation ---
Pre-Procedure Note/Attestation Complete Prior to Procedure Planned Procedure: not applicable Procedure Narrative: revision of Kock pouch stoma in depth Indications for Procedure Pre-Operative Diagnosis: Malfunctioning Kock Pouch with stoma stenosis and angulations Attestation I attest that I discussed the nature of the procedure; its benefits; risks and complications; and alternatives (and the risks and benefits of such alternatives ), prior to the procedure, with the patient (or the patient's legal sales representative publications). I attest that, if there was a reasonable possibility of needing a blood transfusion, the patient (or the patient's legal sales representative publications) was given the [facility] standardized written summary, pursuant to the Andrade Fitzhugh Blood Safety Act ([place] Health and Safety Code # 1645, as amended). I attest that I re-evaluated the patient just prior to the surgery and that there has been no change in the patient's H&P, except as documented below:none Nicanor Whalen MD Sep 15, 2019 07:21
[2019-09-15] MEDS ORDERED: Sodium Chloride 10ml vial INJ ONE (08:02)
[2019-09-15] MEDS ORDERED: ePHEDrine 50mg/ml Inj ONE (08:02)
[2019-09-15] MEDS ORDERED: LR 1000ml 1,000 ML IVLG SCH (08:10)
[2019-09-15] MEDS ORDERED: Metoclopramide 10mg/2ml Inj IVP PRN (08:15)
[2019-09-15] MEDS ORDERED: Hydromorphone 0.5mg/0.5ml inj IVP PRN (08:15)
--- NOTE | 2019-09-15 08:42 | Immediate Post-Op Evaluation ---
Immediate Post-Op Evalulation Immediate Post-Op Evalulation Procedure: Revision of continent pouch stoma Date of Evaluation: Sep 15, 2019 Time of Evaluation: 08:41 IV Fluids: 400 Blood Products: none Estimated Blood Loss: min Urinary Output: none Blood Pressure Systolic: 104 Blood Pressure Diastolic: 56 Pulse Rate: 72 Respiratory Rate: 18 O2 Sat by Pulse Oximetry: 98 Temperature (Fahrenheit): 97.8 Pain Score (1-10): 1 Nausea: No Vomiting: No Complications none Patient Status: reacts, patent, none Hydration Status: adequate Ander Pham MD Sep 15, 2019 08:42
--- NOTE | 2019-09-15 08:43 | Brief Operative Note ---
Immediate Post Operative Note Operative Note Pre-op Diagnosis: Malfunctioning Kock Pouch with stoma stenosis and angulations Procedure: revision of Kock pouch stoma in depth Post-op Diagnosis: same Post-op Diagnosis: same as pre-op Findings: consistent w/pre-op dx studies Surgeon: megan Gasoline Engine Inspector: jose juan Anesthesiologist: donavan Anesthesia: general Specimen: yes - Kock pouch stoma Complications: none Condition: stable Fluids: see anesthesia record Estimated Blood Loss: minimal Drains: other - 28 Parker to Kock pouch Implant(s) used?: No Nicanor Whalen MD Sep 15, 2019 08:43
[2019-09-15] MEDS ORDERED: LORazepam 1mg tab SL PRN (08:45)
[2019-09-15] MEDS: Metoprolol Tartrate 12.5mg TAB ORAL SCH ×2 (09:00→20:23)
[2019-09-15] MEDS: Lisinopril 10mg tab ORAL SCH (09:00)
[2019-09-15] MEDS ORDERED: D5 1/2NS w/KCl 20mEq 1,000 ML IV SCH ×3 (10:00→19:09)
--- NOTE | 2019-09-15 12:00 | Operative Note - Dictated ---
DATE OF OPERATION: 09/15/2019 SURGEON: Nicanor Whalen MD. PODIATRIC FOOT AND ANKLE SPECIALIST: Jam Pittman MD. ANESTHESIOLOGIST: Ander Pham MD. TYPE OF ANESTHESIA: General by LMA. PREOPERATIVE DIAGNOSES: 1. 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 2. History of ulcerative colitis. 3. Status post multiple abdominal operations. 3.1. Proctocolectomy and Kock pouch in 1974. 3.2. Revision of Kock pouch with relocation of stoma to the left lower quadrant in 1994. 3.3. Total abdominal hysterectomy and bilateral salpingo-oophorectomy in 2015. 3.4. Laparotomy with revision of Kock pouch access segment angulation in July 2018. POSTOPERATIVE DIAGNOSES: 1. 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 2. History of ulcerative colitis. 3. Status post multiple abdominal operations. 3.1. Proctocolectomy and Kock pouch in 1974. 3.2. Revision of Kock pouch with relocation of stoma to the left lower quadrant in 1994. 3.3. Total abdominal hysterectomy and bilateral salpingo-oophorectomy in 2015. 3.4. Laparotomy with revision of Kock pouch access segment angulation in July 2018. OPERATION PERFORMED: Revision of Kock pouch stoma in depth. DESCRIPTION OF PROCEDURE: The patient was taken to the operating room and under general anesthesia with sequential compression device stockings in place, she was prepped and draped in usual fashion. The stoma was located in the left lower quadrant. A transversely oriented elliptical incision was made achieving hemostasis with cautery. The edges of the stoma will be grasped with Allis clamps and circumferential dissection performed below the anterior rectus sheath. We were able to elevate approximately 2.5 to 3 cm of redundancy. A 28-Maldivian Parker catheter was able to readily enter the pouch and be removed without any difficulty. Hemostasis was carefully achieved with cautery. The medial aspect of the incision was narrowed with a 4-0 Monocryl suture and then the redundancy was excised and the stoma primarily matured with continuous 2-0 chromic locking sutures starting at the 3 and 9 o'clock positions. A very satisfactory stoma was achieved. A 28-Maldivian Parker catheter was inserted through the stoma into the pouch confirmed by irrigation and sutured to the skin with a 2-0 silk suture and connected to gravity drainage bag. Dry sterile dressings were applied. Final sponge and needle counts were correct. The patient tolerated the procedure well and left the operating room in good condition. Nicanor Whalen M.D. DR: ZAIN JOB#: [id number] CC:
[2019-09-15] MEDS: HYDROmorphone 1mg/ml Carpuject SUBQ PRN (18:57)
[2019-09-15] MEDS: Dyna-Hex 2% Top Sol 2oz TOPIC SCH (20:23)
[2019-09-15] MEDS: DEXLANSOPRAZOLE 60 MG ORAL SCH (20:23)
[2019-09-15] MEDS: Zolpidem 5mg tab ORAL PRN (23:19)
[2019-09-16] VITALS: BP 113/66
[2019-09-16] MEDS: HYDROmorphone 1mg/ml Carpuject SUBQ PRN (02:47)
[2019-09-16 04:00] VITALS: BP 138/78
[2019-09-16] MEDS: NovoLOG Insulin Flexpen SUBQ SCH ×4 (05:56→20:47)
[2019-09-16 06:28] LABS: BASOPHILS % (AUTO) 1.4 % (0.0-2.0); EOSINOPHILS % (AUTO) 4.1 % (0.0-3.0); HEMATOCRIT 34.2 % (37.0-47.0); LYMPHOCYTES % (AUTO) 22.1 % (20.0-45.0); MEAN CORPUSCULAR VOLUME 96 FL (80-99); MONOCYTES % (AUTO) 11.2 % (1.0-10.0); NEUTROPHILS % (AUTO) 61.2 % (45.0-75.0); PLATELET COUNT 170 K/UL (150-450); RED BLOOD COUNT 3.56 M/UL (4.20-5.40); RED CELL DISTRIBUTION WIDTH 11.6 % (11.6-14.8); WHITE BLOOD COUNT 4.8 K/UL (4.8-10.8)
[2019-09-16 07:11] LABS: ANION GAP 10 mmol/L (5-15); BLOOD UREA NITROGEN 8 mg/dL (7-18); CALCIUM 8.1 MG/DL (8.5-10.1); CARBON DIOXIDE 25 MMOL/L (21-32); CHLORIDE 101 MMOL/L (98-107); CREATININE 1.3 MG/DL (0.55-1.30); POTASSIUM 4.1 MMOL/L (3.5-5.1); SODIUM 136 MMOL/L (136-145)
[2019-09-16 08:00] VITALS: BP 101/59
--- NOTE | 2019-09-16 08:34 | General Progress Note ---
Progress Note Progress Note AVSS Some peristomal soreness but ambulates, voiding well. Using [place] + occasional Dilaudid SQ Abdomen soft, stoma pink, mild peristomal edema Urine 3100 Kock pouch ileo 440cc WBC 4800 Hgb 11 BUN 8 Cr 1.3 Imp: Stable Plan: continue IV Levaquin and Flagyl maintain indwelling Kock Pouch catheter to continuous drainage BCIR diet; ambulate TID Nicanor Whalen MD Sep 16, 2019 08:34
[2019-09-16] MEDS: Lisinopril 10mg tab ORAL SCH (09:00)
[2019-09-16] MEDS: Metoprolol Tartrate 12.5mg TAB ORAL SCH ×2 (09:00→20:44)
--- NOTE | 2019-09-16 10:28 | Diagnostic Imaging Report ---
Indication: Reason For Exam: PAIN Technique: Grayscale and duplex images of the bilateral lower extremity veins Comparison: 08/01/2018 Findings: Bilaterally, grayscale and duplex images demonstrate no evidence of intraluminal thrombus. Normal phasic Doppler waveforms, demonstrating normal augmentation response and no evidence of valvular insufficiency. Greater saphenous vein(s) and tibial veins are patent. Normal compressibility. No significant change Impression: Negative for evidence of lower extremity deep venous thrombosis bilaterally
[2019-09-16] MEDS: HYDROcodone/Acetamin 10/325 tab ORAL PRN ×2 (11:22→20:44)
[2019-09-16 12:00] VITALS: BP 123/80
--- NOTE | 2019-09-16 12:08 | 48 Hour Post Anesthesia Eval ---
Post Anesthesia Evaluation Procedure: Revision of continent pouch stoma Date of Evaluation: Sep 16, 2019 Time of Evaluation: 12:07 Blood Pressure Systolic: 106 0: 55 Pulse Rate: 64 Respiratory Rate: 18 Temperature (Fahrenheit): 97.9 O2 Sat by Pulse Oximetry: 98 Airway: patent Nausea: No Vomiting: No Pain Intensity: 2 Hydration Status: adequate Cardiopulmonary Status: stable Mental Status/LOC: patient returned to baseline Follow-up Care/Observations: n/a Post-Anesthesia Complications: none Follow-up care needed: N/A Ander Pham MD Sep 16, 2019 12:08
[2019-09-16] MEDS ORDERED: DiphenhydrAMINE 50mg/ml Inj IVP SCH (14:00)
[2019-09-16 16:00] VITALS: BP 139/72
[2019-09-16 20:00] VITALS: BP 132/73
[2019-09-16] MEDS: Dyna-Hex 2% Top Sol 2oz TOPIC SCH (20:44)
[2019-09-16] MEDS: Zolpidem 5mg tab ORAL PRN (22:17)
[2019-09-17] VITALS: BP 135/73
[2019-09-17 04:00] VITALS: BP 127/72
[2019-09-17] MEDS: HYDROmorphone 1mg/ml Carpuject SUBQ PRN ×2 (04:58→13:33)
[2019-09-17] MEDS: NovoLOG Insulin Flexpen SUBQ SCH ×4 (06:30→21:00)
[2019-09-17 08:00] VITALS: BP 125/74
[2019-09-17] MEDS: Metoprolol Tartrate 12.5mg TAB ORAL SCH ×2 (08:16→20:55)
[2019-09-17] MEDS: Lisinopril 10mg tab ORAL SCH (08:17)
[2019-09-17] MEDS: HYDROcodone/Acetamin 10/325 tab ORAL PRN ×2 (10:49→19:32)
[2019-09-17 12:00] VITALS: BP 130/77
[2019-09-17] MEDS ORDERED: Lactulose 20gm/30ml UDC ORAL SCH (13:06)
--- NOTE | 2019-09-17 13:11 | General Progress Note ---
Progress Note Progress Note AVSS c/o gas cramps and bloating. Has taken po fluids well and eating 50% BCIR diet Abdomen mildly distended, soft. Stoma healing nicely with mild peristomal soft tissue swelling Urine 3700 Kock pouch ileo 215 Imp: Constipation with Kock pouch not draining well Plan; Lactulose po x1 STAT Flush Kock pouch as needed continue IV antibiotics hopefully can start self-intubations in AM Nicanor Whalen MD Sep 17, 2019 13:11
[2019-09-17] MEDS ORDERED: Lactulose 20gm/30ml UDC ORAL PRN (13:15)
[2019-09-17] MEDS ORDERED: Simethicone 80mg tab ORAL PRN (13:15)
[2019-09-17] MEDS ORDERED: ALPRAZolam 0.25mg tab ORAL PRN (13:15)
[2019-09-17 16:00] VITALS: BP 136/72
[2019-09-17 20:00] VITALS: BP 122/68
[2019-09-17] MEDS: Dyna-Hex 2% Top Sol 2oz TOPIC SCH (20:06)
[2019-09-17] MEDS: Zolpidem 5mg tab ORAL PRN (22:02)
[2019-09-18] VITALS: BP 123/69
[2019-09-18 04:00] VITALS: BP 125/91
[2019-09-18] MEDS: NovoLOG Insulin Flexpen SUBQ SCH ×4 (06:15→21:00)
[2019-09-18 08:00] VITALS: BP 141/73
[2019-09-18] MEDS ORDERED: NS Irrig 1000ml ONE ×2 (08:44→09:42)
[2019-09-18] MEDS: Metoprolol Tartrate 12.5mg TAB ORAL SCH ×2 (08:45→21:12)
[2019-09-18] MEDS: Lisinopril 10mg tab ORAL SCH (08:45)
[2019-09-18] MEDS: HYDROcodone/Acetamin 10/325 tab ORAL PRN ×3 (08:48→21:12)
--- NOTE | 2019-09-18 08:54 | General Progress Note ---
Progress Note Progress Note AVSS Kock pouch ileo catheter had to be replaced yesterday for cramps and bloating with inability to flush - new catheter inserted and symptoms relieved Abdomen soft Stoma healing nicely with mild soft tissue swelling peristomal vamsi. superior Urine 2300 Kock pouch ileo 1565 Imp: Improved Plan: RN supervised Kock pouch self intubations q3h am to hs and prn, overnight prn d/c Flagyl d/c Levaquin in AM and then d/c PICC and anticipate discharge Full supplies/instructions/limitations provided/discussed F/u office 09/23 Nicanor Whalen MD Sep 18, 2019 08:54
[2019-09-18 12:00] VITALS: BP 125/73
[2019-09-18 16:00] VITALS: BP 118/73
[2019-09-18 20:00] VITALS: BP 110/60
[2019-09-18] MEDS: Dyna-Hex 2% Top Sol 2oz TOPIC SCH (20:18)
[2019-09-18] MEDS: Zolpidem 5mg tab ORAL PRN (23:23)
[2019-09-19] VITALS: BP 119/59
[2019-09-19] MEDS: HYDROcodone/Acetamin 10/325 tab ORAL PRN (03:32)
[2019-09-19 04:00] VITALS: BP 125/64
[2019-09-19] MEDS: NovoLOG Insulin Flexpen SUBQ SCH (06:23)
--- NOTE | 2019-09-20 15:52 | Discharge Summary ---
Discharge Summary Hospital Course Date of Admission Sep 12, 2019 at 15:45 Date of Discharge Sep 19, 2019 at 07:40 Admitting Diagnosis [place] pouch dysfunction Reason for Hospitalization: elective surgery HPI 69-year-old female in overall stable health , presented with a malfunctioning Kock pouch with severe difficulty with drawing her intubation catheter (that she uses to evacuate stool and gas several times a day) . The patient with a past history of ulcerative colitis . She had undergone proctocolectomy with Kock pouch with revisions. Most recently, she underwent surgery in 07/28/2018 with revision of her Kock pouch stoma and access segment angulation, involving laparotomy. She had been doing well since that surgery, until recently , when she had difficulty removing her catheter. She was advised to follow instructions that if the catheter catches or snags on withdrawal, she re-inserts it back into the pouch and rotates the catheter and then removes it, but yet she continued to have difficulty as well as some difficulty inserting her catheter at times. She was not having any incontinence. In view of the severe risk of traumatizing the access segment with bleeding or perforation, patient was advised to come to the emergency room for further evaluation and management Procedures s/p 09/13/[address] Koby Lopez pouch continent ileostomy pouch endoscopy s/p 09/15/[address] Whalen Revision of Kock pouch stoma in depth Hospital Course patient admitted and subsequently undergone Kock pouch continent ileostomy pouch endoscopy , which revealed a significant angulation of the access segment at approximately 3 cm deep to the mucocutaneous junction stoma by itself was quite small the pouch mucosa was normal with a well-formed nipple valve patient was on IV fluids and started on bowel preparation for revision of Kock pouch stoma labs were closely monitored Folic acid was low, and patient started on folic acid replacement full discussion regarding procedure, indication, options and risks provided patient understood and agreed to proceed patient subsequently undergone on 09/14 revision of Kock pouch stoma in depth postoperatively pain management was addressed with [place] and occasional SQ Dilaudid stoma appeared pink with mild peristomal edema patient was able to ambulate and void without difficulties labs, intake and output were closely monitored patient was on empiric antibiotics indwelling Kock pouch catheter was maintained to continuous drainage patient started on BCIR diet patient experienced gas cramps and bloating and received lactulose x1 IV antibiotic continued patient started on RN supervised Kock pouch self intubation every 3 hours a.m. to hs and as needed overnight on 711 antibiotic Flagyl and Levaquin discontinued 7/12 am stoma was healing well patient was ready for discharge home full supplies/instructions/limitation provided/discussed. outpatient follow-up with surgeon 09/23 1. 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 2. History of ulcerative colitis. 3. Status post multiple abdominal operations. 3.1. Proctocolectomy and Kock pouch in 1974. 3.2. Revision of Kock pouch with relocation of stoma to the left lower quadrant in 1994. 3.3. Total abdominal hysterectomy and bilateral salpingo-oophorectomy in 2015. 3.4. Laparotomy with revision of Kock pouch access segment angulation in July 2018. OPERATION PERFORMED: Revision of Kock pouch stoma in depth. Discharge Medications Continued Medications: Alprazolam* (Xanax*) 0.25 Mg Tablet 0.25 MG ORAL TWICE A DAY for anxiety, #30 TAB 0 Refills (This prescription has been renewed) Dexlansoprazole (Dexilant) 60 Mg Cap.bp 60 MG ORAL DAILY for stomach pain, CAP (This prescription has been renewed) Duloxetine (Cymbalta) 20 Mg Capsule.dr 60 MG ORAL DAILY for depression, CAP Famotidine* (Pepcid 20mg tablet*) 20 Mg Tablet 40 MG ORAL DAILY for stomach pain, #30 TAB 0 Refills Fenofibrate Nanocrystallized (Fenofibrate) 145 Mg Tablet 145 MG ORAL DAILY, #30 TAB 0 Refills (This prescription has been renewed) Hydrocodone/Acetaminophen 5-325* (Hydrocodone/Acetaminophen 5-325*) 1 Each Tablet 1 TAB ORAL Q4H PRN for For Pain, #40 TAB 0 Refills (This prescription has been renewed) Insulin Aspart (Novolog Flexpen) 100 Unit/1 Ml Insuln.pen SUBQ DAILY for DM (This prescription has been renewed) Insulin Glargine (Lantus) 100 Unit/1 Ml Insuln.pen 0 SUBQ BEDTIME for DM, #1 EA 0 Refills (This prescription has been renewed) Lisinopril (Lisinopril*) 5 Mg Tablet 5 MG ORAL DAILY, TAB (This prescription has been renewed) Metformin Hcl (Glucophage) 1,000 Mg Tablet 500 MG ORAL DAILY, TAB (This prescription has been renewed) Metoprolol Tartrate* (Metoprolol Tartrate*) 25 Mg Tablet 12.5 MG ORAL EVERY 12 HOURS for HTN, TAB Omeprazole (Omeprazole) 20 Mg Tablet.dr 20 MG ORAL DAILY, TAB (This prescription has been renewed) Ondansetron (Zofran) 4 Mg Tablet 4 MG ORAL Q6H PRN for Nausea & Vomiting, #40 TAB (This prescription has been renewed) Rizatriptan Benzoate (Rizatriptan) 10 Mg Tablet 10 MG PO, TAB (This prescription has been renewed) Suvorexant (Belsomra) 15 Mg Tablet 15 MG PO for insomnia, TAB (This prescription has been renewed) Tramadol Hcl (Tramadol Hcl) 100 Mg Tab.er.24h 50 MG ORAL TID, TAB (This prescription has been renewed) Zolpidem Tartrate* (Zolpidem Tartrate*) 5 Mg Tablet 5 MG ORAL BEDTIME PRN for Sleep, #30 TAB 0 Refills (This prescription has been renewed) Discharge Condition Upon Discharge: stable Discharge Vital Signs Last Vital Signs Date Time Temp Pulse Resp B/P (MAP) Pulse Ox O2 Delivery O2 Flow Rate FiO2 09/19/19 04:00 97.6 64 18 125/64 (84) 97 09/18/19 21:00 Room Air 09/15/19 10:30 3.0 Discharge Disposition Patient was discharged home Discharge Instructions Discharge Instructions Special Instructions I have been assigned to complete a D/C Summary on this account. I was not involved in the patient management Sabra Gil NP Sep 20, 2019 15:52
== END 2019-09-19 07:40 | disposition home or self-care (01) | DRG 349 ==
LOC: EMR 14:54 → EDBEDREQ 15:26 → 3E 15:45
PROC: 02HV33Z Insertion of Infusion Device into Superior Vena Cava, Percutaneous Approach (ICD-10-PCS; 2019-09-13)
PROC: 0DJD8ZZ Inspection of Lower Intestinal Tract, Via Natural or Artificial Opening Endoscopic (ICD-10-PCS; principal; 2019-09-13 13:01)
PROC: 0WQFXZ2 Repair Abdominal Wall, Stoma, External Approach (ICD-10-PCS; 2019-09-15)
DX: K94.13 Enterostomy malfunction (principal); Y83.3 Surgical operation with formation of external stoma as the cause of abnormal reaction of the patient, or of later complication, without mention of misadventure at the time of the procedure; Z87.19 Personal history of other diseases of the digestive system; Z88.6 Allergy status to analgesic agent; Z90.710 Acquired absence of both cervix and uterus; K21.9 Gastro-esophageal reflux disease without esophagitis; E11.9 Type 2 diabetes mellitus without complications; Z79.4 Long term (current) use of insulin
CPT/HCPCS: 36415; 36569; 71045; 76937; 80048; 80053; 81003; 82607; 82728; 82746; 82962; 83540; 83550; 83690; 85025; 85610; 85730; 86850; 86870; 86900; 86901; 93005; 93970; 94003; 94150; 96360; 96361; 99285; J1815; J2405; J2765; U0002